=== PATIENT | male | born 1940 | race Caucasian/White ===

== ENCOUNTER 2021-01-30 10:57 | Inpatient (IN) | payer MEDICARE ==
[2021-01-30] MEDS ORDERED: SODIUM CHLORIDE 0.9% 500 ML 500 ML IV STA (11:28)
[2021-01-30] MEDS ORDERED: SODIUM CHLORIDE 0.9% 1,000 ML IV STA (11:28)
[2021-01-30] MEDS ORDERED: DILTIAZEM DRIP BOLUS FROM BAG 1 MG SOLN IV ONE (11:31)
--- NOTE | 2021-01-30 11:34 | ED ---
Dizziness HPI - General Chief Complaint: Dizziness Stated Complaint: syncope Time Seen by Provider: 01/30/21 11:20 Source: patient, family, RN notes reviewed Mode of arrival: ambulatory Limitations: no limitations - History of Present Illness Initial Comments: This is a 80-year-old male with a complaint today of dizziness and passing out times. He also complains of palpitations chest. No headache no loss of function is upper or lower extremities. No injury reported. He was noted this morning have increased dizziness and also elevated blood pressure per his . His heart rate was 134 at home. He does have a history of diabetes and some kidney problems he states. No other complaints or modifying factors at this time MD Complaint: dizziness, lightheadedness, near syncope - Related Data Home Medications Medication Instructions Recorded Confirmed Cholecalciferol [Vitamin D3 (25 25 mcg PO DAILY 01/30/21 01/30/21 Mcg = 1000 Iu)] Lisinopril [Zestril] 10 mg PO HS@1830 01/30/21 01/30/21 Pravastatin Sodium [Pravachol] 10 mg PO HS@1830 01/30/21 01/30/21 metFORMIN HCL [Glucophage] 500 mg PO DAILY 01/30/21 01/30/21 Allergies Allergy/AdvReac Type Severity Reaction Status Date / Time Penicillins Allergy Rash/Hives Verified 01/30/21 12:44 Review of Systems ROS Statement: Those systems with pertinent positive or pertinent negative responses have been documented in the HPI. ROS Other: All systems not noted in ROS Statement are negative. Past Medical History Past Medical History: No Reported History History of Any Multi-Drug Resistant Organisms: None Reported Past Surgical History: No Surgical Hx Reported Past Psychological History: No Psychological Hx Reported Smoking Status: Never smoker Past Alcohol Use History: None Reported Past Drug Use History: None Reported General Exam - General Exam Comments Initial Comments: Is a well-developed asthenic appearing male who is awake alert oriented 3 Limitations: no limitations General appearance: alert, anxious Head exam: Present: atraumatic, normocephalic, normal inspection Eye exam: Present: normal appearance, PERRL, EOMI. Absent: scleral icterus, c onjunctival injection, periorbital swelling ENT exam: Present: mucous membranes dry Neck exam: Present: normal inspection. Absent: tenderness, meningismus, lymphadenopathy Respiratory exam: Present: normal lung sounds bilaterally. Absent: respiratory distress, wheezes, rales, rhonchi, stridor Cardiovascular Exam: Present: tachycardia, irregular rhythm. Absent: systolic murmur, diastolic murmur, rubs, gallop, clicks GI/Abdominal exam: Present: soft, normal bowel sounds. Absent: distended, tenderness, guarding, rebound, rigid Extremities exam: Present: normal inspection, full ROM, normal capillary refill. Absent: tenderness, pedal edema, joint swelling, calf tenderness Back exam: Present: normal inspection Neurological exam: Present: alert, oriented X3, CN II-XII intact Psychiatric exam: Present: normal affect, normal mood Skin exam: Present: warm, dry, intact, normal color. 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 Clay. She'll be admitted with cardiology consultation the presentation is consistent with new onset A. fib RVR - Lab Data Result diagrams: 01/30/21 11:41 01/30/21 11:41 Lab Results 01/30/21 01/30/21 01/30/21 Range/Units 11:41 11:41 11:41 WBC 5.5 (3.8-10.6) k/uL RBC 4.70 (4.30-5.90) m/uL Hgb 14.9 (13.0-17.5) gm/dL Hct 42.8 (39.0-53.0) % MCV 90.9 (80.0-100.0) fL MCH 31.6 (25.0-35.0) pg MCHC 34.8 (31.0-37.0) g/dL RDW 12.3 (11.5-15.5) % Plt Count 310 (150-450) k/uL MPV 7.0 Neutrophils % 86 % Lymphocytes % 6 % Monocytes % 5 % Eosinophils % 2 % Basophils % 1 % Neutrophils # 4.7 (1.3-7.7) k/uL Lymphocytes # 0.3 L (1.0-4.8) k/uL Monocytes # 0.3 (0-1.0) k/uL Eosinophils # 0.1 (0-0.7) k/uL Basophils # 0.1 (0-0.2) k/uL Sodium 130 L (137-145) mmol/L Potassium 5.4 H (3.5-5.1) mmol/L Chloride 96 L (98-107) mmol/L Carbon Dioxide 28 (22-30) mmol/L Anion Gap 6 mmol/L BUN 10 (9-20) mg/dL Creatinine 1.23 (0.66-1.25) mg/dL Est GFR (CKD-EPI)AfAm 64 (>60 ml/min/1.73 sqM) Est GFR (CKD-EPI)NonAf 55 (>60 ml/min/1.73 sqM) Glucose 418 H (74-99) mg/dL Calcium 9.9 (8.4-10.2) mg/dL Magnesium 1.8 (1.6-2.3) mg/dL Total Bilirubin 0.7 (0.2-1.3) mg/dL AST 40 (17-59) U/L ALT 43 (4-49) U/L Alkaline Phosphatase 94 (38-126) U/L Troponin I (0.000-0.034) ng/mL Total Protein 6.8 (6.3-8.2) g/dL Albumin 3.8 (3.5-5.0) g/dL TSH 3.160 (0.465-4.680) mIU/L Urine Opiates Screen Not Detected (NotDetected) Ur Oxycodone Screen Not Detected (NotDetected) Urine Methadone Screen Not Detected (NotDetected) Ur Propoxyphene Screen Not Detected (NotDetected) Ur Barbiturates Screen Not Detected (NotDetected) U Tricyclic Antidepress Not Detected (NotDetected) Ur Phencyclidine Scrn Not Detected (NotDetected) Ur Amphetamines Screen Not Detected (NotDetected) U Methamphetamines Scrn Not Detected (NotDetected) U Benzodiazepines Scrn Not Detected (NotDetected) Urine Cocaine Screen Not Detected (NotDetected) U Marijuana (THC) Screen Not Detected (NotDetected) 01/30/21 Range/Units 11:41 WBC (3.8-10.6) k/uL RBC (4.30-5.90) m/uL Hgb (13.0-17.5) gm/dL Hct (39.0-53.0) % MCV (80.0-100.0) fL MCH (25.0-35.0) pg MCHC (31.0-37.0) g/dL RDW (11.5-15.5) % Plt Count (150-450) k/uL MPV Neutrophils % % Lymphocytes % % Monocytes % % Eosinophils % % Basophils % % Neutrophils # (1.3-7.7) k/uL Lymphocytes # (1.0-4.8) k/uL Monocytes # (0-1.0) k/uL Eosinophils # (0-0.7) k/uL Basophils # (0-0.2) k/uL Sodium (137-145) mmol/L Potassium (3.5-5.1) mmol/L Chloride (98-107) mmol/L Carbon Dioxide (22-30) mmol/L Anion Gap mmol/L BUN (9-20) mg/dL Creatinine (0.66-1.25) mg/dL Est GFR (CKD-EPI)AfAm (>60 ml/min/1.73 sqM) Est GFR (CKD-EPI)NonAf (>60 ml/min/1.73 sqM) Glucose (74-99) mg/dL Calcium (8.4-10.2) mg/dL Magnesium (1.6-2.3) mg/dL Total Bilirubin (0.2-1.3) mg/dL AST (17-59) U/L ALT (4-49) U/L Alkaline Phosphatase (38-126) U/L Troponin I <0.012 (0.000-0.034) ng/mL Total Protein (6.3-8.2) g/dL Albumin (3.5-5.0) g/dL TSH (0.465-4.680) mIU/L Urine Opiates Screen (NotDetected) Ur Oxycodone Screen (NotDetected) Urine Methadone Screen (NotDetected) Ur Propoxyphene Screen (NotDetected) Ur Barbiturates Screen (NotDetected) U Tricyclic Antidepress (NotDetected) Ur Phencyclidine Scrn (NotDetected) Ur Amphetamines Screen (NotDetected) U Methamphetamines Scrn (NotDetected) U Benzodiazepines Scrn (NotDetected) Urine Cocaine Screen (NotDetected) U Marijuana (THC) Screen (NotDetected) - Radiology Data Radiology results: report reviewed (Imaging reviewed no acute findings.), image reviewed Disposition Clinical Impression: Rapid atrial fibrillation, Dizziness, Dehydration Disposition: ADMITTED IP TO THIS [facility] Condition: Fair Referrals: Rebecca Zaragoza MD [Primary Care Provider] - 1-2 days
[2021-01-30] MEDS: DILTIAZEM 125 MG in SODIUM CHLORIDE 0.9% 100 ML IV SCH (11:48)
[2021-01-30 11:52] LABS: Basophils # (A) 0.1 k/uL (0-0.2); Basophils % (A) 1 %; Eosinophils # (A) 0.1 k/uL (0-0.7); Eosinophils % (A) 2 %; HCT 42.8 % (39.0-53.0); HGB 14.9 gm/dL (13.0-17.5); Lymphocytes # (A) 0.3 k/uL (1.0-4.8); Lymphocytes % (A) 6 %; MCH 31.6 pg (25.0-35.0); MCHC 34.8 g/dL (31.0-37.0); MCV 90.9 fL (80.0-100.0); Monocytes # (A) 0.3 k/uL (0-1.0); Monocytes % (A) 5 %; Neutrophils # (A) 4.7 k/uL (1.3-7.7); Neutrophils % (A) 86 %; Platelet Count 310 k/uL (150-450); RDW 12.3 % (11.5-15.5); WBC 5.5 k/uL (3.8-10.6)
[2021-01-30 12:05] LABS: Albumin 3.8 g/dL (3.5-5.0); Calcium 9.9 mg/dL (8.4-10.2); Magnesium 1.8 mg/dL (1.6-2.3); Potassium 5.4 mmol/L (3.5-5.1); Total Bilirubin 0.7 mg/dL (0.2-1.3); Total Protein 6.8 g/dL (6.3-8.2)
[2021-01-30 12:13] LABS: Amphetamine Screen,Urine Not Detected (NotDetected); Barbiturate Screen,Urine Not Detected (NotDetected); Benzodiazepines Screen,Urine Not Detected (NotDetected); Cocaine Screen,Urine Not Detected (NotDetected); Methadone Screen, Urine Not Detected (NotDetected); Opiate Screen,Urine Not Detected (NotDetected); Oxycodone Screen, Urine Not Detected (NotDetected); Phencyclidine Screen,Urine Not Detected (NotDetected); Tricyclic Antidepressant,Urine Not Detected (NotDetected); Urn Cannabinoid Scrn Not Detected (NotDetected)
--- NOTE | 2021-01-30 12:19 | XR ---
EXAMINATION TYPE: XR chest 2V DATE OF EXAM: 01/30/2021 COMPARISON: None INDICATION: Dizzy, heart palpitations TECHNIQUE: Frontal and lateral views of the chest are obtained. FINDINGS: The heart size is normal. The pulmonary vasculature is normal. Some platelike atelectasis at the left costophrenic angle. Lungs are otherwise clear.. IMPRESSION: 1. Minimal plate atelectasis left costophrenic angle
[2021-01-30] MEDS ORDERED: NALOXONE 0.4 MG/ML 1 ML VIAL IV PRN (13:04)
[2021-01-30] MEDS ORDERED: HEPARIN SODIUM,PORCINE 5,000 UNIT/ML 1 ML VIAL IV ONE (13:07)
[2021-01-30] MEDS ORDERED: HEPARIN SODIUM,PORCINE 5,000 UNIT/ML 1 ML VIAL IV PRN (13:07)
[2021-01-30] MEDS ORDERED: HEPARIN SOD,PORK IN 0.45% NACL 25,000 UNIT in 0.45% NACL 1 250ML.BAG IV SCH (13:15)
[2021-01-30 14:11] LABS: Basophils # (A) 0.1 k/uL (0-0.2); Basophils % (A) 1 %; Eosinophils # (A) 0.1 k/uL (0-0.7); Eosinophils % (A) 1 %; HCT 40.6 % (39.0-53.0); HGB 13.6 gm/dL (13.0-17.5); INR 1.1 (<1.2); Lymphocytes # (A) 0.4 k/uL (1.0-4.8); Lymphocytes % (A) 6 %; MCH 29.9 pg (25.0-35.0); MCHC 33.4 g/dL (31.0-37.0); MCV 89.5 fL (80.0-100.0); Mean Platelet Volume 7.1; Monocytes # (A) 0.4 k/uL (0-1.0); Monocytes % (A) 5 %; Neutrophils # (A) 6.8 k/uL (1.3-7.7); Neutrophils % (A) 87 %; Partial Thromboplastin Time 23.5 sec (22.0-30.0); Platelet Count 415 k/uL (150-450); Prothrombin Time 11.3 sec (9.0-12.0); RBC 4.53 m/uL (4.30-5.90); RDW 12.7 % (11.5-15.5); WBC 7.8 k/uL (3.8-10.6)
[2021-01-30 16:41] LABS: Glucose,Whole Blood 238 mg/dL (75-99)
[2021-01-30] MEDS: INSULIN ASPART (NovoLOG) 100 UNIT/ML VIAL SQ SCH ×2 (17:55→21:34)
[2021-01-30] MEDS: lisinopriL 10 MG TAB PO SCH (18:14)
[2021-01-30] MEDS: PRAVASTATIN SODIUM 20 MG TAB PO SCH (18:14)
[2021-01-30] MEDS: SODIUM CHLORIDE 0.9% 1,000 ML IV SCH ×2 (18:22→23:43)
[2021-01-30 20:41] LABS: Glucose,Whole Blood 210 mg/dL (75-99)
[2021-01-31 03:22] LABS: Basophils # (A) 0.1 k/uL (0-0.2); Basophils % (A) 1 %; Eosinophils # (A) 0.1 k/uL (0-0.7); Eosinophils % (A) 2 %; HCT 38.3 % (39.0-53.0); HGB 12.5 gm/dL (13.0-17.5); Lymphocytes # (A) 0.7 k/uL (1.0-4.8); Lymphocytes % (A) 11 %; MCH 29.7 pg (25.0-35.0); MCHC 32.7 g/dL (31.0-37.0); MCV 90.8 fL (80.0-100.0); Monocytes # (A) 0.3 k/uL (0-1.0); Monocytes % (A) 5 %; Neutrophils # (A) 4.8 k/uL (1.3-7.7); Neutrophils % (A) 79 %; Platelet Count 381 k/uL (150-450); RBC 4.22 m/uL (4.30-5.90); RDW 12.9 % (11.5-15.5); WBC 6.1 k/uL (3.8-10.6)
[2021-01-31 05:55] LABS: Glucose,Whole Blood 176 mg/dL (75-99)
[2021-01-31] MEDS: INSULIN ASPART (NovoLOG) 100 UNIT/ML VIAL SQ SCH ×4 (06:38→20:31)
[2021-01-31] MEDS: DILTIAZEM 125 MG in SODIUM CHLORIDE 0.9% 100 ML IV SCH (06:39)
[2021-01-31] MEDS: SODIUM CHLORIDE 0.9% 1,000 ML IV SCH ×2 (07:50→17:06)
[2021-01-31] MEDS: metFORMIN 500 MG TAB PO SCH (07:50)
[2021-01-31] MEDS: CHOLECALCIFEROL 25 MCG (1000 IU) TABLET PO SCH (07:50)
[2021-01-31] MEDS: METOPROLOL TARTRATE 25 MG TAB PO SCH ×2 (08:43→20:31)
[2021-01-31 10:22] LABS: Albumin 3.9 g/dL (3.5-5.0); Calcium 9.3 mg/dL (8.4-10.2); Potassium 4.4 mmol/L (3.5-5.1); Total Bilirubin 0.7 mg/dL (0.2-1.3); Total Protein 6.9 g/dL (6.3-8.2)
[2021-01-31 11:08] LABS: Cholesterol 157 mg/dL (<200); HDL Cholesterol 66 mg/dL (40-60); LDL Cholesterol,Calculated 73 mg/dL (0-99); Triglycerides 89 mg/dL (<150)
[2021-01-31 12:21] LABS: Glucose,Whole Blood 209 mg/dL (75-99)
[2021-01-31] MEDS: COLCHICINE 0.6 MG EACH PO SCH ×2 (12:32→20:31)
--- NOTE | 2021-01-31 12:34 | ECHOF ---
Referral Reason:syncope MEASUREMENTS -------- HEIGHT: 175.3 cm WEIGHT: 73.5 kg BP: 114/69 RVIDd: 3.4 cm (< 3.3) IVSd: 1.3 cm (0.6 - 1.1) LVIDd: 3.8 cm (3.9 - 5.3) LVPWd: 1.2 cm (0.6 - 1.1) IVSs: 1.6 cm LVIDs: 2.7 cm LVPWs: 1.6 cm LA Diam: 3.6 cm (2.7 - 3.8) LAESV Index (A-L): 22.65 ml/m Ao Diam: 3.6 cm (2.0 - 3.7) AV Cusp: 1.8 cm (1.5 - 2.6) MV E Jatin: 1.00 m/s MV DecT: 153 ms MV A Jatin: 0.66 m/s MV E/A Ratio: 1.51 AR PHT: 879 ms RAP: 15.00 mmHg RVSP: 43.34 mmHg FINDINGS -------- This was a technically good study. The left ventricular size is normal. There is mild concentric left ventricular hypertrophy. Overa ll left ventricular systolic function is normal with, an EF between 60 - 65 %. The right ventricle is mildly enlarged. Normal LA size by volume 22+/-6 ml/m2. The right atrium is normal in size. Interatrial and interventricular septum intact. There is mild aortic valve sclerosis. There is mild aortic regurgitation. The mitral valve leaflets are mildly thickened. Mild mitral regurgitation is present. Mild tricuspid regurgitation present. There is mild pulmonary hypertension. The right ventricular systolic pressure, as measured by Doppler, is 43.34mmHg. Trace/mild (physiologic) pulmonic regurgitation. The aortic root size is normal. Normal inferior vena cava with less than 50% inspiratory collapse consistent with estimated right atr ial pressure of 15 mmHg. There is a small, generalized pericardial effusion present. CONCLUSIONS -------- 1. The left ventricular size is normal. 2. There is mild concentric left ventricular hypertrophy. 3. Overall left ventricular systolic function is normal with, an EF between 60 - 65 %. 4. The right ventricle is mildly enlarged. 5. Normal LA size by volume 22+/-6 ml/m2. 6. There is mild aortic valve sclerosis. 7. There is mild aortic regurgitation. 8. The mitral valve leaflets are mildly thickened. 9. Mild mitral regurgitation is present. 10. Mild tricuspid regurgitation present. 11. There is mild pulmonary hypertension. 12. The right ventricular systolic pressure, as measured by Doppler, is 43.34mmHg. 13. Trace/mild (physiologic) pulmonic regurgitation. 14. Normal inferior vena cava with less than 50% inspiratory collapse consistent with estimated right atrial pressure of 15 mmHg. 15. There is a small, generalized pericardial effusion present. ORDERLY: Gudelia Jaquez RDCS
--- NOTE | 2021-01-31 12:41 | P.CRDCN ---
History of Present Illness Chief complaint: near syncope History of present illness: HISTORY OF PRESENTING ILLNESS This is a pleasant 80-year-old male past medical history significant for hypertension, diabetes mellitus and dyslipidemia. 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 We have been asked to see in consultation for afib. Approximately 3 weeks ago he woke up from sleep with nausea, abominal pain and bloating. For about 3 days he continued to have these symptoms and also had vomiting and poor appetite. He had no chest pain or shortness of breath during this episode. Then Sunday of last week he felt acutely light headed like he was going to pass out. He felt his heart racing and had to lower himself into a chair. No LOC. After resting he felt well the rest of the day. Then Sunday the same thing happened again with feeling light headed and fluttering in his chest. He did not pass out or fall. On arrival his EKG was atrial tachycardia with rapid heart beat. Review of EKG's and telemetry indicate he is having runs of atrial tachycardia, no afib. He is seen and examined resting comfortably laying flat in bed. DIAGNOSTICS EKG reveals sinus mechanism with bursts of atrial tachycardia. Telemetry tracings indicate sinus rhythm with bursts of atrial tachycardia. Chest xray with minimal atelectasis at the left costrophrenic angle. Laboratory reviewed, WBC 6.1, hgb 12.5, plt 381, sodium 134, potassium 4.4, creatinine 1.09, cardiac enzymes negative x3, magnesium 1.8, TSH 3.16 and LDL 73. Current cardiac medications include lisinopril 10 mg daily and pravastatin 10 mg daily. REVIEW OF SYSTEMS At the time of my exam: CONSTITUTIONAL: Denies fever or chills. CARDIOVASCULAR: Denies chest pain, shortness of breath, orthopnea, PND or palpitations. RESPIRATORY: Denies cough. GASTROINTESTINAL: Denies abdominal pain, diarrhea, constipation, nausea or vomiting. MUSCULOSKELETAL: Denies myalgias. NEUROLOGIC: Denies numbness, tingling, headacbe or weakness. ENDOCRINE: Denies fatigue, weight change, polydipsia or polyurina. GENITOURINARY: Denies burning, hematuria or urgency with micturation. HEMATOLOGIC: Denies history of anemia or bleeding. PHYSICAL EXAMINATION Blood pressure 114/69 heart rate 114 afebrile and maintaining oxygen saturation on room air. CONSTITUTIONAL: No apparent distress. HEENT: Head is normocephalic. Pupils are equal, round. Sclerae anicteric. Mucous membranes of the mouth are moist. No JVD. No carotid bruit. CHEST EXAMINATION: Lungs are clear to auscultation. No chest wall tenderness is noted on palpation or with deep breathing. HEART EXAMINATION: Regular rate and rhythm. S1, S2 heard. No murmurs, gallops or rub. ABDOMEN: Soft, nontender. Positive bowel sounds. EXTREMITIES: 2+ peripheral pulses, no lower extremity edema and no calf tenderness. NEUROLOGIC EXAMINATION: Patient is awake, alert and oriented x3. ASSESSMENT Atrial tachycardia Pericardial effusion, suspect secondary to viral illness with GI symptoms 3 weeks ago. Hyperkalemia Hypertension Dyslipidemia Diabetes mellitus PLAN Discontinue heparin and cardizem infusion. No halfway anti-coagulation required at this time as he is having atrial tachycardia, not afib. Add lopressor 25 mg BID and adjust lisinopril as needed to tolerate the beta sherine. Obtain 2D echocardiogram and doppler study to assess cardiac structure and function. (Preliminary review of echo reveals a pericardial effusion.) Check viral titers, CRP and ESR. Add colchicine 0.6 mg BID. Further recommendations to follow based on clinical course. Thank you kindly for this consultation. Nurse Practitioner note has been reviewed, I agree with a documented findings and plan of care. Patient was seen and examined. Past Medical History Past Medical History: Diabetes Mellitus History of Any Multi-Drug Resistant Organisms: None Reported Past Surgical History: Hernia Repair Additional Past Surgical History / Comment(s): BILATERAL CATARACTS REMOVED SEP 2020 Past Anesthesia/Blood Transfusion Reactions: No Reported Reaction Past Psychological History: No Psychological Hx Reported Smoking Status: Former smoker Past Alcohol Use History: Rare Past Drug Use History: None Reported - Past Family History Son(s) Family Medical History: Cancer Medications and Allergies Home Medications Medication Instructions Recorded Confirmed Type Cholecalciferol [Vitamin D3 (25 25 mcg PO DAILY 01/30/21 01/30/21 History Mcg = 1000 Iu)] Lisinopril [Zestril] 10 mg PO HS@1830 01/30/21 01/30/21 History Pravastatin Sodium [Pravachol] 10 mg PO HS@18301/30/21 01/30/21 History metFORMIN HCL [Glucophage] 500 mg PO DAILY 01/30/21 01/30/21 History Allergies Allergy/AdvReac Type Severity Reaction Status Date / Time Penicillins Allergy Rash/Hives Verified 01/30/21 12:44 Physical Exam Vitals: Vital Signs Temp Pulse Pulse Resp BP BP Pulse Ox 01/31/21 07:54 114 H 01/31/21 07:47 98.1 F 114 H 18 114/69 99 01/31/21 03:59 97.8 F 70 19 102/55 99 01/31/21 02:00 72 19 01/31/21 00:00 97.7 F 72 19 100/57 99 01/30/21 20:00 98.1 F 101 H 18 100/61 97 01/30/21 17:05 97.5 F L 83 20 152/91 100 01/30/21 15:00 86 16 103/69 100 01/30/21 14:30 79 16 124/77 100 01/30/21 14:00 83 18 110/80 100 01/30/21 13:30 85 16 113/66 100 01/30/21 13:00 91 18 116/66 99 01/30/21 12:30 121 H 18 116/69 98 01/30/21 12:00 93 136/83 97 01/30/21 11:44 136 H 01/30/21 11:30 143/95 100 01/30/21 11:06 97.4 F L 169 H 18 155/108 98 Intake and Output 01/30/21 01/31/21 01/31/21 22:59 06:59 14:59 Intake Total 288.348 382.023 Output Total 250 200 200 Balance 38.348 182.023 -200 Intake: Intake, IV Titration 48.348 142.023 Amount Diltiazem 125 mg In 94.25 Sodium Chloride 0.9% 100 ml @ 5 MG/HR 5 mls/hr IV .Q24H GIULIA Rx#:[id number] Heparin Sod,Pork in 0.45% 48.348 47.773 NaCl 25,000 unit In 0.45 % NaCl 1 250ml.bag @ 12 UNITS/KG/HR 8.981 mls/hr IV .Q24H GIULIA Rx#: [id number] Oral 240 240 Output: Urine 250 200 200 Other: # Voids 1 Weight 74.843 kg 73.5 kg Results 01/31/21 02:40 01/31/21 09:33 Cardiac Enzymes 01/30/21 01/30/21 01/30/21 Range/Units 11:41 11:41 15:14 AST 40 (17-59) U/L Troponin I <0.012 <0.012 (0.000-0.034) ng/mL 01/30/21 01/31/21 Range/Units 19:13 09:33 AST 44 (17-59) U/L Troponin I <0.012 (0.000-0.034) ng/mL Coagulation 01/30/21 01/30/21 01/31/21 Range/Units 13:49 19:13 02:40 PT 11.3 (9.0-12.0) sec APTT 23.5 65.8 H 35.5 H (22.0-30.0) sec 01/31/21 Range/Units 09:33 PT (9.0-12.0) sec APTT 38.1 H (22.0-30.0) sec CBC 01/30/21 01/30/21 01/31/21 Range/Units 11:41 13:49 02:40 WBC 5.5 7.8 6.1 (3.8-10.6) k/uL RBC 4.70 4.53 4.22 L (4.30-5.90) m/uL Hgb 14.9 13.6 12.5 L (13.0-17.5) gm/dL Hct 42.8 40.6 38.3 L (39.0-53.0) % Plt Count 310 415 381 (150-450) k/uL Comprehensive Metabolic Panel 01/30/21 01/31/21 Range/Units 11:41 09:33 Sodium 130 L 134 L (137-145) mmol/L Potassium 5.4 H 4.4 (3.5-5.1) mmol/L Chloride 96 L 100 (98-107) mmol/L Carbon Dioxide 28 28 (22-30) mmol/L BUN 10 11 (9-20) mg/dL Creatinine 1.23 1.09 (0.66-1.25) mg/dL Glucose 418 H 239 H (74-99) mg/dL Calcium 9.9 9.3 (8.4-10.2) mg/dL AST 40 44 (17-59) U/L ALT 43 44 (4-49) U/L Alkaline Phosphatase 94 88 (38-126) U/L Total Protein 6.8 6.9 (6.3-8.2) g/dL Albumin 3.8 3.9 (3.5-5.0) g/dL Current Medications Generic Name Dose Route Start Last Admin Trade Name Balaq PRN Reason Stop Dose Admin Cholecalciferol 25 mcg 01/31/21 09:00 01/31/21 07:50 Cholecalciferol 25 Mcg (1000 Iu) Tablet PO 25 mcg DAILY GIULIA Administration Heparin Sodium (Porcine) 0 unit 01/30/21 13:07 Heparin Sodium,Porcine 5,000 Unit/Ml 1 Ml Vial IV PER PROTOCOL PRN Low PTT Protocol Diltiazem HCl 125 mg/ Sodium 125 mls @ 5 mls/hr 01/30/21 11:45 01/31/21 06:39 Chloride IV 5 mg/hr .Q24H GIULIA 5 mls/hr Administration 5 MG/HR Sodium Chloride 1,000 mls @ 100 mls/hr 01/30/21 13:15 01/31/21 07:50 Saline 0.9% IV Not Given .Q10H GIULIA Insulin Aspart 0 unit 01/30/21 21:00 01/31/21 06:38 Insulin Aspart (Novolog) 100 Unit/Ml Vial SQ 2 unit ACHS GIULIA Administration Protocol Lisinopril 10 mg 01/30/21 18:30 01/30/21 18:14 Lisinopril 10 Mg Tab PO 10 mg HS@1830 GIULIA Administration Metformin HCl 500 mg 01/31/21 09:00 01/31/21 07:50 Metformin 500 Mg Tab PO 500 mg DAILY GUILIA Administration Metoprolol Tartrate 25 mg 01/31/21 09:00 01/31/21 08:43 Metoprolol Tartrate 25 Mg Tab PO 25 mg BID GIULIA Administration Naloxone HCl 0.2 mg 01/30/21 13:04 Naloxone 0.4 Mg/Ml 1 Ml Vial IV Q2M PRN Opioid Reversal Pravastatin Sodium 10 mg 01/30/21 18:30 01/30/21 18:14 Pravastatin Sodium 20 Mg Tab PO 10 mg HS@1830 GIULIA Administration Intake and Output 01/30/21 01/31/21 01/31/21 22:59 06:59 14:59 Intake Total 288.348 382.023 Output Total 250 200 200 Balance 38.348 182.023 -200 Intake: Intake, IV Titration 48.348 142.023 Amount Diltiazem 125 mg In 94.25 Sodium Chloride 0.9% 100 ml @ 5 MG/HR 5 mls/hr IV .Q24H GIULIA Rx#:[id number] Heparin Sod,Pork in 0.45% 48.348 47.773 NaCl 25,000 unit In 0.45 % NaCl 1 250ml.bag @ 12 UNITS/KG/HR 8.981 mls/hr IV .Q24H GIULIA Rx#: [id number] Oral 240 240 Output: Urine 250 200 200 Other: # Voids 1 Weight 74.843 kg 73.5 kg 01/31/21 02:40 01/31/21 09:33
[2021-01-31 14:08] LABS: Hemoglobin A1C 8.5 % (4.0-6.0)
[2021-01-31 17:02] LABS: Glucose,Whole Blood 157 mg/dL (75-99)
[2021-01-31] MEDS: PRAVASTATIN SODIUM 20 MG TAB PO SCH (17:07)
[2021-01-31] MEDS: lisinopriL 10 MG TAB PO SCH (17:07)
--- NOTE | 2021-01-31 17:44 | P.HPIM ---
History of Present Illness H&P Date: 01/31/21 Kalen Birmingham, is an 80-year-old male who presented to [facility] emergency room with a chief complaint of dizziness lightheadedness and presyncope patient was also complaining of palpitation, he was evaluated in the emergency room, vital examination on presentation revealed a temperature of 97.4 pulse 169 respiration 18 blood pressure 155/108 pulse ox 98% on room air, his white blood count was 7.8 hemoglobin 13.6 platelet count 415 sodium 130 potassium 5.4 chloride 96 glucose level was 418 troponin level was less than 0.012 BUN 10 creatinine 1.23 AST and ALT were normal urine toxicology screen was negative, coronavirus PCR was negative, patient had a chest x-ray in the [facility] room that revealed minimal plate atelectasis in the left costophrenic angle otherwise no abnormality, EKG done in the emergency room revealed sinus tachycardia was first-degree AV block with a heart rate of 134, however it was felt in the emergency room that patient had atrial fibrillation with rapid ventricular response, he was started on IV Cardizem drip and IV heparin and was admitted to telemetry floor cardiology consultation was requested. Past medical history is significant for history of hypertension, history of hyperlipidemia, history of xag-dydybqu-aoaosxuyj diabetes mellitus millimeters, On review of systems Past Medical History Past Medical History: Diabetes Mellitus History of Any Multi-Drug Resistant Organisms: None Reported Past Surgical History: Hernia Repair Additional Past Surgical History / Comment(s): BILATERAL CATARACTS REMOVED SEP 2020 Past Anesthesia/Blood Transfusion Reactions: No Reported Reaction Past Psychological History: No Psychological Hx Reported Smoking Status: Former smoker Past Alcohol Use History: Rare Past Drug Use History: None Reported - Past Family History Son(s) Family Medical History: Cancer Medications and Allergies Home Medications Medication Instructions Recorded Confirmed Type Cholecalciferol [Vitamin D3 (25 25 mcg PO DAILY 01/30/21 01/30/21 History Mcg = 1000 Iu)] Lisinopril [Zestril] 10 mg PO HS@182901/30/21 01/30/21 History Pravastatin Sodium [Pravachol] 10 mg PO HS@182901/30/21 01/30/21 History metFORMIN HCL [Glucophage] 500 mg PO DAILY 01/30/21 01/30/21 History Allergies Allergy/AdvReac Type Severity Reaction Status Date / Time Penicillins Allergy Rash/Hives Verified 01/30/21 12:44 Physical Exam Vitals: Vital Signs Temp Pulse Pulse Resp BP BP Pulse Ox 01/31/21 07:54 114 H 01/31/21 07:47 98.1 F 114 H 18 114/69 99 01/31/21 03:59 97.8 F 70 19 102/55 99 01/31/21 02:00 72 19 01/31/21 00:00 97.7 F 72 19 100/57 99 01/30/21 20:00 98.1 F 101 H 18 100/61 97 01/30/21 17:05 97.5 F L 83 20 152/91 100 01/30/21 15:00 86 16 103/69 100 01/30/21 14:30 79 16 124/77 100 01/30/21 14:00 83 18 110/80 100 01/30/21 13:30 85 16 113/66 100 01/30/21 13:00 91 18 116/66 99 01/30/21 12:30 121 H 18 116/69 98 01/30/21 12:00 93 136/83 97 01/30/21 11:44 136 H 01/30/21 11:30 143/95 100 01/30/21 11:06 97.4 F L 169 H 18 155/108 98 Intake and Output 01/30/21 01/31/21 01/31/21 22:59 06:59 14:59 Intake Total 288.348 382.023 Output Total 250 200 200 Balance 38.348 182.023 -200 Intake: Intake, IV Titration 48.348 142.023 Amount Diltiazem 125 mg In 94.25 Sodium Chloride 0.9% 100 ml @ 5 MG/HR 5 mls/hr IV .Q24H GIULIA Rx#:[id number] Heparin Sod,Pork in 0.45% 48.348 47.773 NaCl 25,000 unit In 0.45 % NaCl 1 250ml.bag @ 12 UNITS/KG/HR 8.981 mls/hr IV .Q24H GIULIA Rx#: [id number] Oral 240 240 Output: Urine 250 200 200 Other: # Voids 1 Weight 74.843 kg 73.5 kg In general patient is alert and oriented 3 in no apparent distress HEENT head normocephalic and atraumatic Neck is supple no JVD no goiter no lymphadenopathy Chest exam reveals a few scattered rhonchi no wheezing Cardiac exam reveals regular heart sounds S1 and S2 no gallops no murmurs Abdomen is soft nontender no organomegaly with normal bowel sounds Extremity exam reveals 2+ edema no cyanosis or clubbing Neurological examination reveals no gross focal deficit Results CBC & Chem 7: 01/31/21 02:40 01/31/21 09:33 Labs: Abnormal Lab Results - Last 24 Hours (Table) 01/30/21 01/30/21 01/30/21 Range/Units 11:41 11:41 13:49 RBC (4.30-5.90) m/uL Hgb (13.0-17.5) gm/dL Hct (39.0-53.0) % Lymphocytes # 0.3 L 0.4 L (1.0-4.8) k/uL APTT (22.0-30.0) sec Sodium 130 L (137-145) mmol/L Potassium 5.4 H (3.5-5.1) mmol/L Chloride 96 L (98-107) mmol/L Glucose 418 H (74-99) mg/dL POC Glucose (mg/dL) (75-99) mg/dL 01/30/21 01/30/21 01/30/21 Range/Units 16:40 19:13 20:30 RBC (4.30-5.90) m/uL Hgb (13.0-17.5) gm/dL Hct (39.0-53.0) % Lymphocytes # (1.0-4.8) k/uL APTT 65.8 H (22.0-30.0) sec Sodium (137-145) mmol/L Potassium (3.5-5.1) mmol/L Chloride (98-107) mmol/L Glucose (74-99) mg/dL POC Glucose (mg/dL) 238 H 210 H (75-99) mg/dL 01/31/21 01/31/21 01/31/21 Range/Units 02:40 02:40 05:49 RBC 4.22 L (4.30-5.90) m/uL Hgb 12.5 L (13.0-17.5) gm/dL Hct 38.3 L (39.0-53.0) % Lymphocytes # 0.7 L (1.0-4.8) k/uL APTT 35.5 H (22.0-30.0) sec Sodium (137-145) mmol/L Potassium (3.5-5.1) mmol/L Chloride (98-107) mmol/L Glucose (74-99) mg/dL POC Glucose (mg/dL) 176 H (75-99) mg/dL Thrombosis Risk Factor Assmnt - Choose All That Apply Each Risk Factor Represents 3 Points: Age 75 years or older Thrombosis Risk Factor Assessment Total Risk Factor Score: 3 Thrombosis Risk Factor Assessment Level: Moderate Risk Assessment and Plan Plan: Severe tachycardia initially patient was diagnosed in the emergency room with atrial fibrillation with rapid ventricular response patient is admitted to telemetry floor he was started on IV Cardizem, IV heparin, cardiology consultation was requested, however upon evaluation by cardiology, patient is having atrial tachycardia and IV heparin was discontinued there was no need for term anticoagulation, metoprolol 25 mg by mouth twice a day was added Underlying history of hypertension will monitor blood pressure control and adjust medication during this admission Underlying history of hyperlipidemia Underlying history of ikk-sxdmykf-sqbtloefl diabetes mellitus No evidence of hypothyroidism TSH normal at 3.16 on presentation Hyperkalemia potassium 5.4 Will monitor closely Home medication reviewed and reordered Cardiology consultation and recommendation reviewed Continue with current management will follow in a.m.
[2021-01-31 20:12] LABS: Glucose,Whole Blood 288 mg/dL (75-99)
[2021-02-01 06:03] LABS: Glucose,Whole Blood 125 mg/dL (75-99)
[2021-02-01] MEDS: SODIUM CHLORIDE 0.9% 1,000 ML IV SCH (06:29)
[2021-02-01] MEDS: INSULIN ASPART (NovoLOG) 100 UNIT/ML VIAL SQ SCH ×2 (06:30→12:09)
[2021-02-01 07:50] LABS: Albumin 3.8 g/dL (3.5-5.0); Calcium 9.7 mg/dL (8.4-10.2); Potassium 4.3 mmol/L (3.5-5.1); Total Bilirubin 0.7 mg/dL (0.2-1.3)
[2021-02-01 08:01] LABS: Basophils # (A) 0.1 k/uL (0-0.2); Basophils % (A) 1 %; Eosinophils # (A) 0.1 k/uL (0-0.7); Eosinophils % (A) 1 %; HCT 42.5 % (39.0-53.0); HGB 13.9 gm/dL (13.0-17.5); Lymphocytes # (A) 0.9 k/uL (1.0-4.8); Lymphocytes % (A) 14 %; MCH 29.5 pg (25.0-35.0); MCHC 32.6 g/dL (31.0-37.0); MCV 90.5 fL (80.0-100.0); Mean Platelet Volume 7.4; Monocytes # (A) 0.4 k/uL (0-1.0); Monocytes % (A) 6 %; Neutrophils # (A) 4.9 k/uL (1.3-7.7); Neutrophils % (A) 77 %; Platelet Count 365 k/uL (150-450); RDW 12.9 % (11.5-15.5); WBC 6.3 k/uL (3.8-10.6)
[2021-02-01] MEDS: CHOLECALCIFEROL 25 MCG (1000 IU) TABLET PO SCH (08:38)
[2021-02-01] MEDS: COLCHICINE 0.6 MG EACH PO SCH (08:38)
[2021-02-01] MEDS: metFORMIN 500 MG TAB PO SCH (08:39)
[2021-02-01] MEDS: METOPROLOL TARTRATE 25 MG TAB PO SCH (08:39)
[2021-02-01 11:53] LABS: Glucose,Whole Blood 172 mg/dL (75-99)
[2021-02-01 12:23] VITALS: BP 130/71; PULSE 80; RESP 18; TEMP 98.3
--- NOTE | 2021-02-01 12:32 | P.PN ---
Subjective HISTORY OF PRESENTING ILLNESS This is a pleasant 80-year-old male past medical history significant for hypertension, diabetes mellitus and dyslipidemia. 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 We have been asked to see in consultation for afib. Approximately 3 weeks ago he woke up from sleep with nausea, abominal pain and bloating. For about 3 days he continued to have these symptoms and also had vomiting and poor appetite. He had no chest pain or shortness of breath during this episode. Then Sunday of last week he felt acutely light headed like he was going to pass out. He felt his heart racing and had to lower himself into a chair. No LOC. After resting he felt well the rest of the day. Then Sunday the same thing happened again with feeling light headed and fluttering in his chest. He did not pass out or fall. On arrival his EKG was atrial tachycardia with rapid heart beat. Review of EKG's and telemetry indicate he is having runs of atrial tachycardia, no afib. He is seen and examined resting comfortably laying flat in bed. 02/01/2021 Should seen and examined resting comfortably laying flat in bed in no acute distress. Telemetry tracings indicate persistent sinus mechanism with no further episodes of atrial tachycardia. Blood pressure 130/71 heart rate 88 afebrile maintaining oxygen saturation on room air. Laboratory data reviewed, WBC 6.3, hemoglobin 13.9, platelets 365, ESR 20, sodium 133, potassium 4.3, creatinine 1.10, C-reactive protein less than 5. PHYSICAL EXAMINATION CONSTITUTIONAL: No apparent distress. HEENT: Head is normocephalic. Pupils are equal, round. Sclerae anicteric. Mucous membranes of the mouth are moist. No JVD. No carotid bruit. CHEST EXAMINATION: Lungs are clear to auscultation. No chest wall tenderness is noted on palpation or with deep breathing. HEART EXAMINATION: Regular rate and rhythm. S1, S2 heard. No murmurs, gallops or rub. EXTREMITIES: 2+ peripheral pulses, no lower extremity edema and no calf te nderness. ASSESSMENT Atrial tachycardia Pericardial effusion, suspect secondary to viral illness with GI symptoms 3 weeks ago. Hyperkalemia Hypertension Dyslipidemia Diabetes mellitus PLAN Stable for discharge on current medical regimen. Recommend colchicine for 4 weeks. Follow-up in the office with Dr. Johnson. Nurse Practitioner note has been reviewed, I agree with a documented findings and plan of care. Patient was seen and examined. Objective - Vital Signs Vital signs: Vital Signs Temp 98.3 F 02/01/21 11:02 Pulse 80 02/01/21 11:02 Resp 18 02/01/21 11:02 BP 130/71 02/01/21 11:02 Pulse Ox 96 02/01/21 11:02 Intake & Output 01/31/21 02/01/21 02/01/21 18:59 06:59 18:59 Intake Total 420 300 240 Output Total 700 800 Balance -280 -500 240 Weight 73.6 kg Intake: Oral 420 300 240 Output: Urine 700 800 Other: # Voids 2 - Labs CBC & Chem 7: 02/01/21 06:55 02/01/21 06:55 Labs: Abnormal Lab Results - Last 24 Hours (Table) 01/31/21 01/31/21 01/31/21 Range/Units 02:40 17:00 20:11 Lymphocytes # (1.0-4.8) k/uL ESR (0-15) mm/hr Sodium (137-145) mmol/L Glucose (74-99) mg/dL POC Glucose (mg/dL) 157 H 288 H (75-99) mg/dL Hemoglobin A1c 8.5 H (4.0-6.0) % 02/01/21 02/01/21 02/01/21 Range/Units 06:02 06:55 06:55 Lymphocytes # 0.9 L (1.0-4.8) k/uL ESR (0-15) mm/hr Sodium 133 L (137-145) mmol/L Glucose 152 H (74-99) mg/dL POC Glucose (mg/dL) 125 H (75-99) mg/dL Hemoglobin A1c (4.0-6.0) % 02/01/21 02/01/21 Range/Units 06:55 11:52 Lymphocytes # (1.0-4.8) k/uL ESR 20 H (0-15) mm/hr Sodium (137-145) mmol/L Glucose (74-99) mg/dL POC Glucose (mg/dL) 172 H (75-99) mg/dL Hemoglobin A1c (4.0-6.0) %
--- NOTE | 2021-02-01 12:39 | P.DS ---
Providers Date of admission: 01/30/21 13:04 Expected date of discharge: 02/01/21 Attending physician: Joseluis Clay Consults: 01/30/21 13:05 Consult Physician Routine Consulting Provider: Winston Alonso Consult Reason/Comments: New-onset rapid A. fib Do you want consulting provider notified?: Yes Primary care physician: Rebecca Zaragoza Va Hospital Course: Discharge diagnosis Severe tachycardia initially patient was diagnosed in the emergency room with atrial fibrillation with rapid ventricular response patient is admitted to telemetry floor he was started on IV Cardizem, IV heparin, cardiology consultation was requested, however upon evaluation by cardiology, patient is having atrial tachycardia and IV heparin was discontinued there was no need for term anticoagulation, metoprolol 25 mg by mouth twice a day was added Underlying history of hypertension will monitor blood pressure control and adjust medication during this admission Underlying history of hyperlipidemia Underlying history of qlj-malwikv-ttozqpkvd diabetes mellitus No evidence of hypothyroidism TSH normal at 3.16 on presentation Hyperkalemia potassium 5.4 Will monitor closely. Resolved Pericardial effusion seen on 2-D echo per neurology services suspect secondary to viral illness. Patient started on colchicine for 4 weeks and patient will follow up with cardiology services Hospital course Kalen Birmingham, is an 80-year-old male who presented to [facility] emergency room with a chief complaint of dizziness lightheadedness and presyncope patient was also complaining of palpitation, he was evaluated in the emergency room, vital examination on presentation revealed a temperature of 97.4 pulse 169 respiration 18 blood pressure 155/108 pulse ox 98% on room air, his white blood count was 7.8 hemoglobin 13.6 platelet count 415 sodium 130 potassium 5.4 chloride 96 glucose level was 418 troponin level was less than 0.0 12 BUN 10 creatinine 1.23 AST and ALT were normal urine toxicology screen was negative, coronavirus PCR was negative, patient had a chest x-ray in the emergency room that revealed minimal plate atelectasis in the left costophrenic angle otherwise no abnormality, EKG done in the emergency room revealed sinus tachycardia was first-degree AV block with a heart rate of 134, however it was felt in the emergency room that patient had atrial fibrillation with rapid ventricular response, he was started on IV Cardizem drip and IV heparin and was admitted to telemetry floor cardiology consultation was requested. Past medical history is significant for history of hypertension, history of hyperlipidemia, history of kkc-dyhalwv-qzsrejqvd diabetes mellitus millimeters, On review of systems On 02/01/2021 patient alert and oriented 3. Patient states he feels good denies any chest pain or shortness of breath. Patient denies nausea vomiting or diarrhea. Patient denies any urinary burning or frequency. Heart rate has remained sinus rhythm. Discussed case with cardiology team pericardial effusion seen on 2-D echo suspect secondary to viral illness. Patient started on cochicine and advised to follow up with cardiology services in 4 weeks. Patient has been started on Metroprolol 25 mg twice a day. patient follow-up closely with PCP and cardial G services for further management Patient Condition at Discharge: Stable Plan - Discharge Summary Discharge Rx Participant: No New Discharge Prescriptions: New Metoprolol Tartrate [Lopressor] 25 mg PO BID #180 tab Colchicine [Colcrys] 0.6 mg PO BID #60 each Pioglitazone [Actos] 30 mg PO DAILY 30 Days #30 tab Continue metFORMIN HCL [Glucophage] 500 mg PO DAILY Cholecalciferol [Vitamin D3 (25 Mcg = 1000 Iu)] 25 mcg PO DAILY Pravastatin Sodium [Pravachol] 10 mg PO HS@1830 Lisinopril [Zestril] 10 mg PO HS@1830 Discharge Medication List Cholecalciferol [Vitamin D3 (25 Mcg = 1000 Iu)] 25 mcg PO DAILY 01/30/21 [History] Lisinopril [Zestril] 10 mg PO HS@1830 01/30/21 [History] Pravastatin Sodium [Pravachol] 10 mg PO HS@1830 01/30/21 [History] metFORMIN HCL [Glucophage] 500 mg PO DAILY 01/30/21 [History] Colchicine [Colcrys] 0.6 mg PO BID #60 each 02/01/21 [Rx] Metoprolol Tartrate [Lopressor] 25 mg PO BID #180 tab 02/01/21 [Rx] Pioglitazone [Actos] 30 mg PO DAILY 30 Days #30 tab 02/01/21 [Rx] Follow up Appointment(s)/Referral(s): Arden Johnson MD [STAFF PHYSICIAN] - 4 Weeks Rebecca Zaragoza MD [Primary Care Provider] - 1-2 days Activity/Diet/Wound Care/Special Instructions: Glucometer and supplies are in [facility] pharmacy Discharge Disposition: HOME SELF-CARE
[2021-02-03 13:19] LABS: Parvovirus B-19 IgM Antibodies 0.24 INDEX (<=0.90)
== END 2021-02-01 14:35 | disposition home or self-care (01) | DRG 309 ==
LOC: EC 10:57 → 3SCARD 13:04
PROVIDERS: ADMIT Internal Medicine; ATTEND Internal Medicine
DX: I47.1 Supraventricular tachycardia (principal); I31.3 Pericardial effusion (noninflammatory); I10 Essential (primary) hypertension; E78.5 Hyperlipidemia, unspecified; E11.9 Type 2 diabetes mellitus without complications; E86.0 Dehydration; E87.5 Hyperkalemia; I48.91 Unspecified atrial fibrillation; Z79.84 Long term (current) use of oral hypoglycemic drugs; Z79.899 Other long term (current) drug therapy; Z87.891 Personal history of nicotine dependence; Z20.822 Contact with and (suspected) exposure to COVID-19; Z98.42 Cataract extraction status, left eye; Z98.41 Cataract extraction status, right eye; B34.8 Other viral infections of unspecified site; Z88.0 Allergy status to penicillin
CPT/HCPCS: 36415; 71046; 80053; 80061; 80306; 83036; 83735; 84443; 84484; 85025; 85610; 85652; 85730; 86140; 86658; 86747; 87635; 93005; 93306; 96361; 96374; 96375; 99285

== ENCOUNTER 2021-02-13 09:26 | Emergency (ER) | payer MEDICARE ==
[2021-02-13 09:32] VITALS: TEMP 97.9
--- NOTE | 2021-02-13 10:17 | ED ---
Arrhythmia/Palpitations HPI - General Chief Complaint: Arrhythmia/Palpitations Stated Complaint: high pulse, weakness Time Seen by Provider: 02/13/21 09:40 Source: patient Mode of arrival: wheelchair Limitations: physical limitation - History of Present Illness Initial Comments: Patient is an 80-year-old male presenting to emergency Department with comp laints of rapid heartbeat and dizziness that started this morning. Patient states he was just admitted for the hospital 2 weeks ago for similar complaint. He was diagnosed with A. fib with RVR, small pericardial effusion. Patient has been following with Dr. Johnson. Patient hasn't taken his meds as prescribed. He states last night he felt an episode of rapid heartbeat and then felt better so he went to sleep, he woke up at 4 AM this morning with similar symptoms. He denies any chest pains or shortness of breath. Currently at this time he is asymptomatic. He denies any nausea or vomiting, no fevers or chills. No abdominal pain. Denies a headache or dizziness. He has no further complaints at this time. Upon arrival to the ER, his vital signs are stable. - Related Data Home Medications Medication Instructions Recorded Confirmed Cholecalciferol [Vitamin D3 (25 25 mcg PO DAILY 01/30/21 02/13/21 Mcg = 1000 Iu)] Lisinopril [Zestril] 20 mg PO AC-SUPPER 01/30/21 02/13/21 Pravastatin Sodium [Pravachol] 20 mg PO AC-SUPPER 01/30/21 02/13/21 metFORMIN HCL [Glucophage] 500 mg PO DAILY 01/30/21 02/13/21 Colchicine [Colcrys] 0.6 mg PO DAILY 02/13/21 02/13/21 Previous Rx's Medication Instructions Recorded Metoprolol Tartrate [Lopressor] 25 mg PO BID #180 tab 02/01/21 Pioglitazone [Actos] 30 mg PO DAILY 30 Days #30 tab 02/01/21 Allergies Allergy/AdvReac Type Severity Reaction Status Date / Time Penicillins Allergy Rash/Hives Verified 02/13/21 10:33 Review of Systems ROS Statement: Those systems with pertinent positive or pertinent negative responses have been documented in the HPI. ROS Other: All systems not noted in ROS Statement are negative. Past Medical History Past Medical History: Diabetes Mellitus Additional Past Medical History / Comment(s): pericardial effusion History of Any Multi-Drug Resistant Organisms: None Reported Past Surgical History: Hernia Repair Additional Past Surgical History / Comment(s): BILATERAL CATARACTS REMOVED SEP 2020 Past Anesthesia/Blood Transfusion Reactions: No Reported Reaction Past Psychological History: No Psychological Hx Reported Smoking Status: Former smoker Past Alcohol Use History: Rare Past Drug Use History: None Reported - Past Family History Son(s) Family Medical History: Cancer General Exam - General Exam Comments Initial Comments: GENERAL: Patient is well-developed and well-nourished. Patient is nontoxic and in no acute distress. HEAD: Atraumatic, normocephalic. EYES: Pupils equal round and reactive to light, extraocular movements intact, sclera anicteric, conjunctiva are normal. Eyelids were unremarkable. ENT: TMs normal, nares patent, oropharynx clear without exudates. Moist mucous membranes. NECK: Normal range of motion, supple without lymphadenopathy or JVD. LUNGS: Unlabored respirations. Breath sounds clear to auscultation bilaterally and equal. No wheezes rales or rhonchi. HEART: Regular rate and rhythm without murmurs, rubs or gallops. ABDOMEN: Soft, nontender, normoactive bowel sounds. No guarding, no rebound. No masses appreciated. : Deferred MUSCULOSKELETAL: Normal extremities with adequate strength and normal range of motion, no pitting or edema. No clubbing or cyanosis. NEUROLOGICAL: Patient is alert and oriented x 3. Motor and sensory are also intact. Cranial nerves II through XII grossly intact. Symmetrical smile. Normal speech, normal gait. PSYCH: Normal mood, normal affect. SKIN: Warm, Dry, normal turgor, no rashes or lesions noted. Limitations: physical limitation Course Vital Signs 02/13/21 02/13/21 09:29 11:52 Temperature 97.9 F Pulse Rate 77 76 Respiratory 18 20 Rate Blood Pressure 159/87 131/77 O2 Sat by Pulse 98 100 Oximetry EKG Findings - EKG Comments: EKG Findings:: Sinus rhythm with first-degree AV block, left axis deviation, RBBB, no signs of an acute ischemia. Similar to previous EKG on 01/30/2021. Ventricular rate 69, NJ interval to 10, QT 382. Medical Decision Making - Medical Decision Making Patient is an 80-year-old male here with concerns for rapid heartbeat, dizziness this morning. He was admitted 2 weeks ago for same complaint, diagnosed with A. fib, small pleural effusion. He has been following with cardiology. Vitals are stable upon arrival, EKG shows sinus rhythm, no acute ischemia. Chest x-ray shows no definite acute process. Patient's white count is normal, glucose is elevated at 2:15, troponin is normal urine shows no evidence of infection. Speedy ordoñez's vital signs remained stable here in the ER. He has been completely asymptomatic here. 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 Patient is in agreement this plan of care and he is stable for discharge. Return parameters were discussed with them and they verbalized understanding. Case discussed with Dr. Mcgee. - Lab Data Result diagrams: 02/13/21 10:05 02/13/21 10:05 Lab Results 02/13/21 02/13/21 02/13/21 Range/Units 10:05 10:05 10:05 WBC 5.9 (3.8-10.6) k/uL RBC 5.01 (4.30-5.90) m/uL Hgb 15.0 (13.0-17.5) gm/dL Hct 44.4 (39.0-53.0) % MCV 88.8 (80.0-100.0) fL MCH 29.9 (25.0-35.0) pg MCHC 33.7 (31.0-37.0) g/dL RDW 13.2 (11.5-15.5) % Plt Count 226 (150-450) k/uL MPV 7.6 Neutrophils % 81 % Lymphocytes % 9 % Monocytes % 5 % Eosinophils % 3 % Basophils % 1 % Neutrophils # 4.8 (1.3-7.7) k/uL Lymphocytes # 0.6 L (1.0-4.8) k/uL Monocytes # 0.3 (0-1.0) k/uL Eosinophils # 0.2 (0-0.7) k/uL Basophils # 0.1 (0-0.2) k/uL PT 10.9 (9.0-12.0) sec INR 1.0 (<1.2) APTT 23.3 (22.0-30.0) sec Sodium 134 L (137-145) mmol/L Potassium 4.4 (3.5-5.1) mmol/L Chloride 99 (98-107) mmol/L Carbon Dioxide 25 (22-30) mmol/L Anion Gap 10 mmol/L BUN 13 (9-20) mg/dL Creatinine 1.08 (0.66-1.25) mg/dL Est GFR (CKD-EPI)AfAm 75 (>60 ml/min/1.73 sqM) Est GFR (CKD-EPI)NonAf 64 (>60 ml/min/1.73 sqM) Glucose 215 H (74-99) mg/dL Calcium 10.1 (8.4-10.2) mg/dL Magnesium 1.9 (1.6-2.3) mg/dL Total Bilirubin 1.0 (0.2-1.3) mg/dL AST 26 (17-59) U/L ALT 22 (4-49) U/L Alkaline Phosphatase 77 (38-126) U/L Troponin I (0.000-0.034) ng/mL Total Protein 7.5 (6.3-8.2) g/dL Albumin 4.5 (3.5-5.0) g/dL Urine Color Urine Appearance (Clear) Urine pH (5.0-8.0) Ur Specific [place] (1.001-1.035) Urine Protein (Negative) Urine Glucose (UA) (Negative) Urine Ketones (Negative) Urine Blood (Negative) Urine Nitrite (Negative) Urine Bilirubin (Negative) Urine Urobilinogen (<2.0) mg/dL Ur Leukocyte Esterase (Negative) 02/13/21 02/13/21 Range/Units 10:05 10:05 WBC (3.8-10.6) k/uL RBC (4.30-5.90) m/uL Hgb (13.0-17.5) gm/dL Hct (39.0-53.0) % MCV (80.0-100.0) fL MCH (25.0-35.0) pg MCHC (31.0-37.0) g/dL RDW (11.5-15.5) % Plt Count (150-450) k/uL MPV Neutrophils % % Lymphocytes % % Monocytes % % Eosinophils % % Basophils % % Neutrophils # (1.3-7.7) k/uL Lymphocytes # (1.0-4.8) k/uL Monocytes # (0-1.0) k/uL Eosinophils # (0-0.7) k/uL Basophils # (0-0.2) k/uL PT (9.0-12.0) sec INR (<1.2) APTT (22.0-30.0) sec Sodium (137-145) mmol/L Potassium (3.5-5.1) mmol/L Chloride (98-107) mmol/L Carbon Dioxide (22-30) mmol/L Anion Gap mmol/L BUN (9-20) mg/dL Creatinine (0.66-1.25) mg/dL Est GFR (CKD-EPI)AfAm (>60 ml/min/1.73 sqM) Est GFR (CKD-EPI)NonAf (>60 ml/min/1.73 sqM) Glucose (74-99) mg/dL Calcium (8.4-10.2) mg/dL Magnesium (1.6-2.3) mg/dL Total Bilirubin (0.2-1.3) mg/dL AST (17-59) U/L ALT (4-49) U/L Alkaline Phosphatase (38-126) U/L Troponin I <0.012 (0.000-0.034) ng/mL Total Protein (6.3-8.2) g/dL Albumin (3.5-5.0) g/dL Urine Color Light Yellow Urine Appearance Clear (Clear) Urine pH 6.0 (5.0-8.0) Ur Specific [place] 1.005 (1.001-1.035) Urine Protein Trace H (Negative) Urine Glucose (UA) 2+ H (Negative) Urine Ketones Negative (Negative) Urine Blood Negative (Negative) Urine Nitrite Negative (Negative) Urine Bilirubin Negative (Negative) Urine Urobilinogen <2.0 (<2.0) mg/dL Ur Leukocyte Esterase Negative (Negative) Disposition Clinical Impression: Palpitations Disposition: HOME SELF-CARE Condition: Stable Instructions (If sedation given, give patient instructions): Heart Palpitations (ED) Additional Instructions: Please return to the Emergency Department if symptoms worsen or any other concerns. Continue to follow-up with your water and sewer systems supervisor. Follow-up with your family doctor regarding elevated glucose levels. Is patient prescribed a controlled substance at d/c from ED?: No Referrals: Rebecca Zaragoza MD [Primary Care Provider] - 1-2 days Time of Disposition: 12:10
[2021-02-13 10:20] LABS: Basophils # (A) 0.1 k/uL (0-0.2); Basophils % (A) 1 %; Eosinophils # (A) 0.2 k/uL (0-0.7); Eosinophils % (A) 3 %; HCT 44.4 % (39.0-53.0); Lymphocytes # (A) 0.6 k/uL (1.0-4.8); Lymphocytes % (A) 9 %; MCH 29.9 pg (25.0-35.0); MCHC 33.7 g/dL (31.0-37.0); MCV 88.8 fL (80.0-100.0); Mean Platelet Volume 7.6; Monocytes # (A) 0.3 k/uL (0-1.0); Monocytes % (A) 5 %; Neutrophils # (A) 4.8 k/uL (1.3-7.7); Neutrophils % (A) 81 %; Platelet Count 226 k/uL (150-450); RBC 5.01 m/uL (4.30-5.90); RDW 13.2 % (11.5-15.5); WBC 5.9 k/uL (3.8-10.6)
[2021-02-13 10:34] LABS: Albumin 4.5 g/dL (3.5-5.0); Calcium 10.1 mg/dL (8.4-10.2); Magnesium 1.9 mg/dL (1.6-2.3); Potassium 4.4 mmol/L (3.5-5.1); Total Protein 7.5 g/dL (6.3-8.2)
[2021-02-13 10:43] LABS: Partial Thromboplastin Time 23.3 sec (22.0-30.0); Prothrombin Time 10.9 sec (9.0-12.0)
[2021-02-13 10:50] LABS: Appearance,Urine Clear (Clear); Bilirubin,Urine Negative (Negative); Blood,Urine Negative (Negative); Color,Urine Light Yellow; Glucose,Urine (UA) 2+ (Negative); Ketones,Urine Negative (Negative); Leukocyte Esterase,Urine Negative (Negative); Nitrite,Urine Negative (Negative); Protein,Urine Trace (Negative); Specific Gravity,Urine 1.005 (1.001-1.035); Urobilinogen,Urine <2.0 mg/dL (<2.0)
--- NOTE | 2021-02-13 11:48 | XR ---
EXAMINATION TYPE: XR chest 2V DATE OF EXAM: 02/13/2021 COMPARISON: 01/30/2021 HISTORY: 80-year-old male dysrhythmia TECHNIQUE: AP and lateral views FINDINGS: Heart upper limits of normal in size. Hazy peripheral lung densities likely relating to overlying sof t tissue. Some strandy atelectasis in the lower lungs. Probably vasculature within normal limits. No malcolm consolidation or pleural effusion. IMPRESSION: Strandy bibasilar atelectasis. Borderline heart size. No definite acute process.
[2021-02-13 11:53] VITALS: BP 131/77; PULSE 76; RESP 20
== END 2021-02-13 12:26 | disposition home or self-care (01) ==
LOC: EC 09:26
DX: R00.2 Palpitations (principal); R53.1 Weakness; R42 Dizziness and giddiness; I48.92 Unspecified atrial flutter; J90 Pleural effusion, not elsewhere classified; E11.9 Type 2 diabetes mellitus without complications; Z79.84 Long term (current) use of oral hypoglycemic drugs; Z79.899 Other long term (current) drug therapy; Z88.0 Allergy status to penicillin; Z87.891 Personal history of nicotine dependence
CPT/HCPCS: 36415; 71046; 80053; 81003; 83735; 84484; 85025; 85610; 85730; 99285

== ENCOUNTER 2022-11-30 10:09 | Inpatient (IN) | payer MEDICARE ==
[2022-11-30 10:27] LABS: Glucose,Whole Blood 180 mg/dL (70-110)
--- NOTE | 2022-11-30 10:39 | ED ---
General Adult HPI - General Chief complaint: Shortness of Breath Stated complaint: sob Time Seen by Provider: 11/30/22 10:24 Source: patient, family, RN notes reviewed Mode of arrival: wheelchair Limitations: no limitations - History of Present Illness Initial comments: Patient is a pleasant 82-year-old male presenting to the emergency department with concerns for difficulty breathing. Symptoms have been present for the past week or 2. Heart rate was high yesterday at 150 and again this morning. Patient has mild nonproductive cough. Patient has had some nasal congestion for the past several weeks. Patient does have history of pericardial effusion however not with similar symptoms to this. Patient has had some mild leg edema. No chest pain. No palpitations. - Related Data Home Medications Medication Instructions Recorded Confirmed Pravastatin Sodium [Pravachol] 20 mg PO W/SUPPER 01/30/21 11/30/22 metFORMIN HCL [Glucophage] 500 mg PO W/SUPPER 01/30/21 11/30/22 Ipratropium [place] [Ipratropium 1 spr EA NOSTRIL DAILY 11/30/22 11/30/22 [place] 0.03%] Levothyroxine Sodium [Synthroid] 50 mcg PO AC-BRKFST 11/30/22 11/30/22 Metoprolol Tartrate [Lopressor] 25 mg PO BID-W/MEALS 11/30/22 11/30/22 Pioglitazone [Actos] 45 mg PO W/SUPPER 11/30/22 11/30/22 Repaglinide [Prandin] 0.5 mg PO W/SUPPER 11/30/22 11/30/22 lisinopriL [Zestril] 20 mg PO DAILY 11/30/22 11/30/22 Allergies Allergy/AdvReac Type Severity Reaction Status Date / Time Penicillins Allergy Rash/Hives Verified 11/30/22 11:52 all over body Review of Systems ROS Statement: Those systems with pertinent positive or pertinent negative responses have been documented in the HPI. ROS Other: All systems not noted in ROS Statement are negative. Constitutional: Denies: fever Eyes: Denies: eye pain ENT: Denies: ear pain Respiratory: Reports: as per HPI, cough, dyspnea Cardiovascular: Denies: chest pain, palpitations Endocrine: Denies: fatigue Gastrointestinal: Denies: abdominal pain Genitourinary: Denies: dysuria Musculoskeletal: Denies: back pain Skin: Denies: rash Neurological: Denies: weakness Past Medical History Past Medical History: Diabetes Mellitus, Hyperlipidemia, Hypertension, Thyroid Disorder Additional Past Medical History / Comment(s): pericardial effusion History of Any Multi-Drug Resistant Organisms: None Reported Past Surgical History: Hernia Repair Additional Past Surgical History / Comment(s): BILATERAL CATARACTS REMOVED SEP 2020 Past Anesthesia/Blood Transfusion Reactions: No Reported Reaction Past Psychological History: No Psychological Hx Reported Smoking Status: Former smoker Past Alcohol Use History: Rare Past Drug Use History: None Reported - Past Family History Son(s) Family Medical History: Cancer General Exam Limitations: no limitations General appearance: alert, in no apparent distress Head exam: Present: normocephalic Eye exam: Present: normal appearance Neck exam: Present: normal inspection Respiratory exam: Present: normal lung sounds bilaterally Cardiovascular Exam: Present: tachycardia Expanded Peripheral pulses: 2+: Radial (R), Radial (L) GI/Abdominal exam: Present: soft, normal bowel sounds. Absent: tenderness Extremities exam: Present: pedal edema (+1 bilateral). Absent: calf tenderness Neurological exam: Present: alert Psychiatric exam: Present: normal affect, normal mood Skin exam: Present: normal color Course Vital Signs 11/30/22 11/30/22 11/30/22 10:18 10:36 11:38 Temperature 98 F Pulse Rate 148 H 147 H 92 Respiratory 24 20 18 Rate Blood Pressure 119/83 114/82 103/65 O2 Sat by Pulse 99 98 97 Oximetry 11/30/22 13:33 Temperature Pulse Rate 149 H Respiratory 17 Rate Blood Pressure 100/77 O2 Sat by Pulse 99 Oximetry - Reevaluation(s) Reevaluation #1: 11/30/22 11:45 Repeat EKG interpreted by myself a chill flutter with a rate of 90. Normal axis. Low QRS voltage precordial leads. Right bundle branch block. T-wave inversions. EKG Findings - EKG Results: EKG: interpreted by [place] (Atrial flutter with rapid ventricular response. [place] indeterminate. Right bundle branch block. Nonspecific ST-T.) Medical Decision Making - Medical Decision Making Was pt. sent in by a medical professional or institution (, PA, REAL ESTATE PROFESSIONAL, urgent care, hospital, or care home...) When possible be specific @ -No Did you speak to anyone other than the patient for history (EMS, parent, family, police, friend...)? What history was obtained from this source @ - helped provide significant history including blood pressure heart rate Did you review nursing and triage notes (agree or disagree)? Why? @ -I reviewed and agree with nursing and triage notes Were old charts reviewed (outside hosp., previous admission, EMS record, old EKG, old radiological studies, urgent care reports/EKG's, care home records)? Report findings @ -No old charts were reviewed Differential Diagnosis (chest pain, altered mental status, abdominal pain women, abdominal pain men, vaginal bleeding, weakness, fever, dyspnea, syncope, headache, dizziness, GI bleed, back pain, seizure, CVA, palpatations, mental health)? @ -Differential Dyspnea: Coronary syndrome, arrhythmia, tamponade, asthma, COPD, pulmonary embolism, pneumonia, pneumothorax, pulmonary effusion, anaphylaxis, diabetic ketoacidosis, flailed chest, pulmonary contusion, diaphragmatic rupture, anemia, neuromus cular, this is not meant to be an all-inclusive list. EKG interpreted by me (3pts min.). @ -As above X-rays interpreted by me (1pt min.). @ -Chest x-ray showed bilateral effusions, more in the right side, consistent with CHF interpreted by myself CT interpreted by me (1pt min.). @ -None done U/S interpreted by me (1pt. min.). @ -None done What testing was considered but not performed or refused? (CT, X-rays, U/S, labs)? Why? @ -None What meds were considered but not given or refused? Why? @ -Cardizem was originally held however patient became tachycardic again and Cardizem has been started Did you discuss the management of the patient with other professionals (professionals i.e. , PA, REAL ESTATE PROFESSIONAL, lab, RT, psych nurse, case management social worker, bridge tender, teacher, division officer weapons department, rn case mgr)? Give summary @ -Case was discussed with Dr. Clay, covering for Dr. ritchie who will admit. He agrees with cardiology consult. Was smoking cessation discussed for >3mins.? @ -No Was critical care preformed (if so, how long)? @ -Ye 34 minutes critical care time Were there social determinants of health that impacted care today? How? (Homelessness, low income, unemployed, alcoholism, drug addiction, transportation, low edu. Level, literacy, decrease access to med. care, half-way, rehab)? @ -No Was there de-escalation of care discussed even if they declined (Discuss DNR or withdrawal of care, Hospice)? DNR status @ -No What co-morbidities impacted this encounter? (DM, HTN, Smoking, COPD, CAD, Cancer, CVA, ARF, Chemo, Hep., AIDS, mental health diagnosis, sleep apnea, morbid obesity)? @ -History of a flutter Was patient admitted / discharged? Hospital course, mention meds given and route, prescriptions, significant lab abnormalities, going to OR and other pertinent info. @ -Patient's heart rate improved and then became tachycardic again. Patient reevaluated. Patient and family updated on results and plan. Undiagnosed new problem with uncertain prognosis? @ -No Drug Therapy requiring intensive monitoring for toxicity (Heparin, Nitro, Insulin, Cardizem)? @ -Patient will need monitoring of Cardizem. Were any procedures done? @ -No Diagnosis/symptom? @ -A flutter with RVR, CHF Acute, or Chronic, or Acute on Chronic? @ -Acute on chronic Uncomplicated (without systemic symptoms) or Complicated (systemic symptoms)? @ -Complicated by dyspnea Side effects of treatment? @ -No Exacerbation, Progression, or Severe Exacerbation? @ -Severe exacerbation Poses a threat to life or bodily function? How? (Chest pain, [place], OR, pneumonia, PE, COPD, DKA, ARF, appy, cholecystitis, CVA, Diverticulitis, Homicidal, Suicidal, threat to staff... and all critical care pts) @ -Poses a threat to bodily function and life by hypoxia and heart failure - Lab Data Result diagrams: 11/30/22 11:00 11/30/22 11:00 Lab Results 11/30/22 11/30/22 11/30/22 Range/Units 10:17 11:00 11:00 WBC 6.9 (3.8-10.6) k/uL RBC 3.68 L (4.30-5.90) m/uL Hgb 11.5 L (13.0-17.5) gm/dL Hct 35.0 L (39.0-53.0) % MCV 95.2 (80.0-100.0) fL MCH 31.2 (25.0-35.0) pg MCHC 32.8 (31.0-37.0) g/dL RDW 14.5 (11.5-15.5) % Plt Count 199 (150-450) k/uL MPV 8.5 Neutrophils % 89 % Lymphocytes % 3 % Monocytes % 5 % Eosinophils % 1 % Basophils % 0 % Neutrophils # 6.1 (1.3-7.7) k/uL Lymphocytes # 0.2 L (1.0-4.8) k/uL Monocytes # 0.4 (0-1.0) k/uL Eosinophils # 0.1 (0-0.7) k/uL Basophils # 0.0 (0-0.2) k/uL PT 11.9 (9.0-12.0) sec INR 1.1 (<1.2) APTT 23.8 (22.0-30.0) sec Sodium (137-145) mmol/L Potassium (3.5-5.1) mmol/L Chloride (98-107) mmol/L Carbon Dioxide (22-30) mmol/L Anion Gap mmol/L BUN (9-20) mg/dL Creatinine (0.66-1.25) mg/dL Est GFR (CKD-EPI)AfAm (>60 ml/min/1.73 sqM) Est GFR (CKD-EPI)NonAf (>60 ml/min/1.73 sqM) Glucose (74-99) mg/dL POC Glucose (mg/dL) 180 H (70-110) mg/dL POC Glu [employer] ID Stevan, Brady Calcium (8.4-10.2) mg/dL Magnesium (1.6-2.3) mg/dL Total Bilirubin (0.2-1.3) mg/dL AST (17-59) U/L ALT (4-49) U/L Alkaline Phosphatase (38-126) U/L Troponin I (0.000-0.034) ng/mL NT-Pro-B Natriuret Pep pg/mL Total Protein (6.3-8.2) g/dL Albumin (3.5-5.0) g/dL TSH (0.465-4.680) mIU/L Free T4 (0.78-2.19) ng/dL Free T3 pg/mL (2.8-5.3) pg/ml 11/30/22 11/30/22 11/30/22 Range/Units 11:00 11:00 11:00 WBC (3.8-10.6) k/uL RBC (4.30-5.90) m/uL Hgb (13.0-17.5) gm/dL Hct (39.0-53.0) % MCV (80.0-100.0) fL MCH (25.0-35.0) pg MCHC (31.0-37.0) g/dL RDW (11.5-15.5) % Plt Count (150-450) k/uL MPV Neutrophils % % Lymphocytes % % Monocytes % % Eosinophils % % Basophils % % Neutrophils # (1.3-7.7) k/uL Lymphocytes # (1.0-4.8) k/uL Monocytes # (0-1.0) k/uL Eosinophils # (0-0.7) k/uL Basophils # (0-0.2) k/uL PT (9.0-12.0) sec INR (<1.2) APTT (22.0-30.0) sec Sodium 128 L (137-145) mmol/L Potassium 5.1 (3.5-5.1) mmol/L Chloride 99 (98-107) mmol/L Carbon Dioxide 22 (22-30) mmol/L Anion Gap 7 mmol/L BUN 56 H (9-20) mg/dL Creatinine 0.99 (0.66-1.25) mg/dL Est GFR (CKD-EPI)AfAm 82 (>60 ml/min/1.73 sqM) Est GFR (CKD-EPI)NonAf 71 (>60 ml/min/1.73 sqM) Glucose 181 H (74-99) mg/dL POC Glucose (mg/dL) (70-110) mg/dL POC Glu [employer] ID Calcium 8.9 (8.4-10.2) mg/dL Magnesium 1.8 (1.6-2.3) mg/dL Total Bilirubin 1.1 (0.2-1.3) mg/dL AST 45 (17-59) U/L ALT 33 (4-49) U/L Alkaline Phosphatase 68 (38-126) U/L Troponin I <0.012 (0.000-0.034) ng/mL NT-Pro-B Natriuret Pep 3160 pg/mL Total Protein 6.4 (6.3-8.2) g/dL Albumin 3.6 (3.5-5.0) g/dL TSH 3.880 (0.465-4.680) mIU/L Free T4 1.43 (0.78-2.19) ng/dL Free T3 pg/mL 2.8 (2.8-5.3) pg/ml Critical Care Time Critical Care Time: Yes Total Critical Care Time: 34 Disposition Clinical Impression: Atrial flutter with rapid ventricular response, Congestive heart failure Disposition: ADMITTED IP TO THIS HOSP Is patient prescribed a controlled substance at d/c from ED?: No Referrals: Rebecca Zaragoza MD [Primary Care Provider] - 1-2 days Time of Disposition: 13:50
[2022-11-30] MEDS ORDERED: DILTIAZEM DRIP BOLUS FROM BAG 1 MG SOLN IV ONE (11:22)
[2022-11-30 11:31] LABS: Albumin 3.6 g/dL (3.5-5.0); Calcium 8.9 mg/dL (8.4-10.2); Total Bilirubin 1.1 mg/dL (0.2-1.3); Total Protein 6.4 g/dL (6.3-8.2)
[2022-11-30 11:33] LABS: Basophils % (A) 0 %; Eosinophils # (A) 0.1 k/uL (0-0.7); Eosinophils % (A) 1 %; HGB 11.5 gm/dL (13.0-17.5); Lymphocytes # (A) 0.2 k/uL (1.0-4.8); Lymphocytes % (A) 3 %; MCH 31.2 pg (25.0-35.0); MCHC 32.8 g/dL (31.0-37.0); MCV 95.2 fL (80.0-100.0); Mean Platelet Volume 8.5; Monocytes # (A) 0.4 k/uL (0-1.0); Monocytes % (A) 5 %; Neutrophils # (A) 6.1 k/uL (1.3-7.7); Neutrophils % (A) 89 %; Platelet Count 199 k/uL (150-450); RBC 3.68 m/uL (4.30-5.90); RDW 14.5 % (11.5-15.5); WBC 6.9 k/uL (3.8-10.6)
--- NOTE | 2022-11-30 11:36 | XR ---
EXAMINATION TYPE: XR chest 2V DATE OF EXAM: 11/30/2022 COMPARISON: 02/13/2021 TECHNIQUE: PA and lateral views submitted. HISTORY: Shortness of breath FINDINGS: Bilateral areas of consolidation and pleural effusion are noted with mild central interstitial patter n. No pneumothorax. Heart size is at the upper limits of normal with atherosclerotic change aorta. Mi ld hyperinflation correlate for COPD. Hypertrophic and degenerative change of the spine. IMPRESSION: 1. Bilateral infiltrate and pleural effusion greater on the right correlate for CHF. Otherwise consid er pneumonia.
[2022-11-30 11:47] LABS: T4, Free (Free Thyroxine) 1.43 ng/dL (0.78-2.19)
[2022-11-30 11:48] LABS: Magnesium 1.8 mg/dL (1.6-2.3); Potassium 5.1 mmol/L (3.5-5.1)
[2022-11-30 11:59] LABS: INR 1.1 (<1.2); Partial Thromboplastin Time 23.8 sec (22.0-30.0); Prothrombin Time 11.9 sec (9.0-12.0)
[2022-11-30] MEDS: DILTIAZEM 125 MG in SODIUM CHLORIDE 0.9% 100 ML IV SCH (13:32)
[2022-11-30] MEDS ORDERED: HEPARIN SODIUM 1,000 UN/ML (10ML VL) IV ONE (13:58)
[2022-11-30] MEDS ORDERED: HEPARIN SODIUM 1,000 UN/ML (10ML VL) IV PRN (13:58)
[2022-11-30] MEDS ORDERED: HEPARIN SOD,PORK IN 0.45% NACL 25,000 UNIT in 0.45% NACL 1 250ML.BAG IV SCH (14:00)
[2022-11-30] MEDS ORDERED: ASPIRIN 325 MG TAB PO STA (14:01)
[2022-11-30] MEDS: FUROSEMIDE 10 MG/ML 4 ML VIAL IV SCH (15:06)
[2022-11-30 16:53] LABS: Glucose,Whole Blood 185 mg/dL (70-110)
[2022-11-30] MEDS: METOPROLOL TARTRATE 25 MG TAB PO SCH (17:02)
--- NOTE | 2022-11-30 17:21 | P.HPIM ---
History of Present Illness H&P Date: 11/30/22 Kalen [place], is an 82 years old male who presented to [facility] emergency room with a chief complaint of shortness of breath. Patient states that his shortness of breath has started several weeks ago but has been worse recently. He was evaluated in the emergency room vital examination on presentation revealed a temperature of 98 pulse 148 respiration 24 blood pressure 119/83 pulse ox 99% on room air Laboratory data revealed a white blood count of 6.9 hemoglobin 11.5 platelet count 199 sodium 128 potassium 5.1 chloride 99 CO2 22 BUN 56 creatinine 0.99 glucose 181 troponin level less than 0.012 Testing in the emergency room revealed chest x-ray done in the emergency room revealed bilateral infiltrates and pleural effusions greater on the right, that represent congestive heart failure versus pneumonia. EKG done in the emergency room revealed evidence of atrial flutter with tachycardia and right bundle branch block. Patient was admitted to medical floor for further evaluation and treatment Past Medical History Past Medical History: Diabetes Mellitus, Hyperlipidemia, Hypertension, Thyroid Disorder Additional Past Medical History / Comment(s): pericardial effusion History of Any Multi-Drug Resistant Organisms: None Reported Past Surgical History: Hernia Repair Additional Past Surgical History / Comment(s): BILATERAL CATARACTS REMOVED SEP 2020 Past Anesthesia/Blood Transfusion Reactions: No Reported Reaction Past Psychological History: No Psychological Hx Reported Smoking Status: Former smoker Past Alcohol Use History: Rare Past Drug Use History: None Reported - Past Family History Son(s) Family Medical History: Cancer Medications and Allergies Home Medications Medication Instructions Recorded Confirmed Type Pravastatin Sodium [Pravachol] 20 mg PO W/SUPPER 01/30/21 11/30/22 History metFORMIN HCL [Glucophage] 500 mg PO W/SUPPER 01/30/21 11/30/22 History Ipratropium [place] [Ipratropium 1 spr EA NOSTRIL DAILY 11/30/22 11/30/22 History [place] 0.03%] Levothyroxine Sodium [Synthroid] 50 mcg PO AC-BRKFST 11/30/22 11/30/22 History Metoprolol Tartrate [Lopressor] 25 mg PO BID-W/MEALS 11/30/22 11/30/22 History Pioglitazone [Actos] 45 mg PO W/SUPPER 11/30/22 11/30/22 History Repaglinide [Prandin] 0.5 mg PO W/SUPPER 11/30/22 11/30/22 History lisinopriL [Zestril] 20 mg PO DAILY 11/30/22 11/30/22 History Allergies Allergy/AdvReac Type Severity Reaction Status Date / Time Penicillins Allergy Rash/Hives Verified 11/30/22 11:52 all over body Physical Exam Vitals: Vital Signs Temp Pulse Resp BP Pulse Ox 11/30/22 15:04 98 16 102/63 96 11/30/22 13:33 149 H 17 100/77 99 11/30/22 11:38 92 18 103/65 97 11/30/22 10:36 147 H 20 114/82 98 11/30/22 10:18 98 F 148 H 24 119/83 99 Intake and Output 11/30/22 11/30/22 11/30/22 06:59 14:59 22:59 Other: Weight 74.843 kg Results CBC & Chem 7: 11/30/22 11:00 11/30/22 11:00 Labs: Abnormal Lab Results - Last 24 Hours (Table) 11/30/22 11/30/22 11/30/22 Range/Units 10:17 11:00 11:00 RBC 3.68 L (4.30-5.90) m/uL Hgb 11.5 L (13.0-17.5) gm/dL Hct 35.0 L (39.0-53.0) % Lymphocytes # 0.2 L (1.0-4.8) k/uL Sodium 128 L (137-145) mmol/L BUN 56 H (9-20) mg/dL Glucose 181 H (74-99) mg/dL POC Glucose (mg/dL) 180 H (70-110) mg/dL Assessment and Plan Plan: Atrial flutter with rapid ventricular response, patient was started on IV heparin and IV Cardizem drip in the emergency room, will order echocardiogram and consult cardiology Dehydration with significant elevation in BUN at 56, will continue with very gentle hydration , Hyponatremia sodium 128 Bilateral pulmonary infiltrates and pleural effusion that may represent congestive heart failure versus pneumonia, however no clinical evidence of pneumonia there is no fever no cough and no leukocytosis, will hold off antibiotics at this time, pulmonary consultation was requested. Underlying history of [id number] diabetes mellitus Underlying history of hypertension Underlying history of hyperlipidemia At this time patient is admitted to telemetry floor Home medications reviewed and reordered Cardiology consultation and pulmonary consultation requested Continue with IV fluid, IV heparin and IV Cardizem drip Order echo cardiogram For DVT prophylaxis patient is on IV heparin Will continue to follow closely
[2022-11-30] MEDS ORDERED: PIOGLITAZONE 45 MG TAB PO SCH (17:30)
[2022-11-30] MEDS ORDERED: metFORMIN 500 MG TAB PO SCH (17:30)
[2022-11-30] MEDS ORDERED: PRAVASTATIN SODIUM 20 MG TAB PO SCH (17:30)
[2022-11-30] MEDS ORDERED: REPAGLINIDE 1 MG TAB PO SCH (17:30)
[2022-11-30] MEDS: NITROGLYCERIN OINT 1 INCH/GM PACKET TOPICAL SCH ×2 (18:05→22:42)
[2022-11-30 19:57] LABS: Glucose,Whole Blood 243 mg/dL (70-110)
[2022-11-30 21:59] LABS: Glucose,Whole Blood 121 mg/dL (70-110)
[2022-11-30] MEDS: INSULIN ASPART (NovoLOG) 100 UNIT/ML VIAL SQ SCH (22:00)
[2022-11-30] MEDS ORDERED: ONDANSETRON 4 MG/2 ML VIAL IVP PRN (23:26)
[2022-12-01] MEDS: FUROSEMIDE 10 MG/ML 4 ML VIAL IV SCH (01:19)
[2022-12-01 02:03] LABS: Glucose,Whole Blood 124 mg/dL (70-110)
[2022-12-01] MEDS ORDERED: NALOXONE 0.4 MG/ML 1 ML VIAL IV PRN (02:11)
[2022-12-01] MEDS: NOREPINEPHRINE 4 MG in SODIUM CHLORIDE 0.9% 250 ML IV SCH ×3 (02:44→11:55)
[2022-12-01] MEDS ORDERED: DEXTROSE 5% IN WATER 100 ML with AMIODARONE 150 MG IV ONE (03:30)
[2022-12-01] MEDS: AMIODARONE 360 MG in DEXTROSE 5% IN WATER 200 ML IV ONE ×4 (03:37→08:54)
[2022-12-01] MEDS: METOPROLOL TARTRATE 25 MG TAB PO SCH (06:49)
[2022-12-01] MEDS: LEVOTHYROXINE 50 MCG TAB PO SCH (06:49)
[2022-12-01] MEDS: DILTIAZEM 125 MG in SODIUM CHLORIDE 0.9% 100 ML IV SCH (06:51)
[2022-12-01 07:17] LABS: Glucose,Whole Blood 217 mg/dL (70-110)
[2022-12-01] MEDS: INSULIN ASPART (NovoLOG) 100 UNIT/ML VIAL SQ SCH ×4 (07:18→21:09)
[2022-12-01 07:24] LABS: Basophils % (A) 0 %; Eosinophils # (A) 0.1 k/uL (0-0.7); Eosinophils % (A) 1 %; HCT 21.5 % (39.0-53.0); Lymphocytes # (A) 0.4 k/uL (1.0-4.8); Lymphocytes % (A) 6 %; MCH 31.5 pg (25.0-35.0); MCHC 33.3 g/dL (31.0-37.0); MCV 94.7 fL (80.0-100.0); Mean Platelet Volume 8.4; Monocytes # (A) 0.5 k/uL (0-1.0); Monocytes % (A) 8 %; Neutrophils # (A) 5.4 k/uL (1.3-7.7); Neutrophils % (A) 83 %; Platelet Count 190 k/uL (150-450); RBC 2.27 m/uL (4.30-5.90); RDW 14.5 % (11.5-15.5); WBC 6.5 k/uL (3.8-10.6)
[2022-12-01 07:30] LABS: INR 1.3 (<1.2); Partial Thromboplastin Time 86.5 sec (22.0-30.0); Prothrombin Time 13.6 sec (9.0-12.0)
[2022-12-01 07:39] LABS: Albumin 2.4 g/dL (3.5-5.0); Calcium 8.2 mg/dL (8.4-10.2); Magnesium 1.7 mg/dL (1.6-2.3); Potassium 4.6 mmol/L (3.5-5.1); Total Protein 4.5 g/dL (6.3-8.2)
[2022-12-01 07:42] LABS: Total Bilirubin 0.7 mg/dL (0.2-1.3)
[2022-12-01 07:44] LABS: HGB 7.1 gm/dL (13.0-17.5)
--- NOTE | 2022-12-01 08:01 | P.CRDCN ---
History of Present Illness Consult date: 12/01/22 Chief complaint: Shortness of breath History of present illness: The patient is an 82-year-old gentleman with a past medical history significant for diabetes and hypertension and dyslipidemia and history of atrial tachycardia. We asked to see the patient as a consult here in the intensive care unit for further evaluation of atrial fibrillation with RVR and also for further evaluation of shortness of breath. The patient was seen and evaluated at that site. He is somewhat poor historian. He was falling speed when he was talking to me. Apparently he presented for about a week history of progressive exertional dyspnea and progressive weakness and dizziness and lightheadedness but no presyncope or syncope and no symptoms of chest pain or chest discomfort. He was evaluated in the emergency department. The initial hemoglobin was around 11 but subsequently the second hemoglobin dropped to about 7. He was hypotensive requiring norepinephrine he continues to be on norepinephrine. Also he was found to be in atrial fibrillation with RVR and subsequently was started on Cardizem IV as well as amiodarone IV. No history of atrial fibrillation before. He is known to have atrial tachycardia. The last echo from 2020 revealed preserved biventricular systolic function with no significant valvular abnormalities. The patient did have a bowel movement when he was on the floor and that was normal subsequently a second bowel movement in the intensive care unit was bloody. I believe the whole clinical scenario the patient including his symptoms of dizziness lightheadedness and shortness of breath is consistent with gastrointestinal bleeding. Currently he is on heparin which we are going to stop. He still hypotensive requiring norepinephrine. Distal in atrial fibrillation with heart rate around 100. On examination he seems to be in mild heart failure predominantly right was bilateral lower extent is pitting edema noted and diminished breathing sounds bilaterally. The chest x-ray showed findings consistent with CHF. The NT proBNP was not checked. We are going to check that Past Medical History Past Medical History: Diabetes Mellitus, Hyperlipidemia, Hypertension, Thyroid Disorder Additional Past Medical History / Comment(s): pericardial effusion History of Any Multi-Drug Resistant Organisms: None Reported Past Surgical History: Hernia Repair Additional Past Surgical History / Comment(s): BILATERAL CATARACTS REMOVED SEP 2020 Past Anesthesia/Blood Transfusion Reactions: No Reported Reaction Past Psychological History: No Psychological Hx Reported Smoking Status: Former smoker Past Alcohol Use History: Rare Past Drug Use History: None Reported Additional Drug Use History / Comment(s): smoked a pipe - Past Family History Son(s) Family Medical History: Cancer Mother Additional Family Medical History / Comment(s): parkinsons and dementia Sister(s) Additional Family Medical History / Comment(s): passed in 2021 from "blood clots" Medications and Allergies Home Medications Medication Instructions Recorded Confirmed Type Pravastatin Sodium [Pravachol] 20 mg PO W/SUPPER 01/30/21 11/30/22 History metFORMIN HCL [Glucophage] 500 mg PO W/SUPPER 01/30/21 11/30/22 History Ipratropium Lind[place] [Ipratropium 1 spr EA NOSTRIL DAILY 11/30/22 11/30/22 Hi story Lind[place] 0.03%] Levothyroxine Sodium [Synthroid] 50 mcg PO AC-BRKFST 11/30/22 11/30/22 History Metoprolol Tartrate [Lopressor] 25 mg PO BID-W/MEALS 11/30/22 11/30/22 History Pioglitazone [Actos] 45 mg PO W/SUPPER 11/30/22 11/30/22 History Repaglinide [Prandin] 0.5 mg PO W/SUPPER 11/30/22 11/30/22 History lisinopriL [Zestril] 20 mg PO DAILY 11/30/22 11/30/22 History Allergies Allergy/AdvReac Type Severity Reaction Status Date / Time Penicillins Allergy Rash/Hives Verified 11/30/22 11:52 all over body Physical Exam Vitals: Vital Signs Temp Pulse Pulse Resp BP BP Pulse Ox 12/01/22 07:00 134 H 15 88/50 97 12/01/22 06:45 96 20 88/55 97 12/01/22 06:30 135 H 14 94/41 98 12/01/22 06:15 118 H 27 H 94/51 98 12/01/22 06:00 138 H 20 99/54 96 12/01/22 05:45 140 H 21 86/45 95 12/01/22 05:30 126 H 24 86/52 96 12/01/22 05:15 140 H 27 H 105/55 94 L 12/01/22 05:00 140 H 15 102/52 96 12/01/22 04:45 140 H 20 88/56 96 12/01/22 04:30 140 H 13 87/50 98 12/01/22 04:15 138 H 23 92/55 96 12/01/22 04:00 97.1 F L 138 H 20 88/55 96 12/01/22 03:45 140 H 29 H 87/52 97 12/01/22 03:30 32 H 80/54 96 12/01/22 03:10 149 H 17 73/58 95 12/01/22 03:00 149 H 15 84/53 99 12/01/22 02:50 150 H 16 84/53 98 12/01/22 02:40 147 H 28 H 88/52 97 12/01/22 02:30 147 H 28 H 83/52 97 12/01/22 02:20 147 H 34 H 83/52 94 L 12/01/22 02:10 146 H 26 H 94/61 96 12/01/22 02:00 31 H 12/01/22 01:45 147 H 79/52 12/01/22 01:40 148 H 74/49 12/01/22 01:15 147 H 82/52 12/01/22 00:40 98 F 147 H 18 87/50 96 11/30/22 20:00 98 F 85 18 91/59 96 11/30/22 16:57 97.4 F L 119 H 18 121/59 93 L 11/30/22 15:04 98 16 102/63 96 11/30/22 13:33 149 H 17 100/77 99 11/30/22 11:38 92 18 103/65 97 11/30/22 10:36 147 H 20 114/82 98 11/30/22 10:18 98 F 148 H 24 119/83 99 Intake and Output 11/30/22 12/01/22 12/01/22 22:59 06:59 14:59 Intake Total 240 266.769 43.784 Output Total 1150 250 Balance -910 266.769 -206.216 Intake: Intake, IV Titration 266.769 43.784 Amount Diltiazem 125 mg In 99.499 Sodium Chloride 0.9% 100 ml @ 10 MG/HR 10 mls/hr IV .[id number] [facility] Rx#: [id number] Heparin Sod,Pork in 0.45% 80.38 43.784 NaCl 25,000 unit In 0.45 % NaCl 1 250ml.bag @ 12 UNITS/KG/HR 8.981 mls/hr IV .Q24H [facility] Rx#: [id number] Norepinephrine 4 mg In 86.890 Sodium Chloride 0.9% 250 ml @ 0.03 MCG/KG/MIN 7. 315 mls/hr IV .Q24H [facility] Rx#:[id number] Oral 240 Output: Urine 1150 250 Other: Voiding Method Urinal # Voids 1 0 # Bowel Movements 1 Weight 64 kg 75.7 kg Results 12/01/22 06:56 12/01/22 06:56 Cardiac Enzymes 11/30/22 11/30/22 11/30/22 Range/Units 11:00 11:00 14:58 AST 45 (17-59) U/L Troponin I <0.012 0.015 (0.000-0.034) ng/mL 11/30/22 12/01/22 Range/Units 18:24 06:56 AST 28 (17-59) U/L Troponin I 0.016 (0.000-0.034) ng/mL Coagulation 11/30/22 11/30/22 Range/Units 11:00 21:15 PT 11.9 (9.0-12.0) sec APTT 23.8 112.8 H* (22.0-30.0) sec CBC 11/30/22 12/01/22 Range/Units 11:00 06:56 WBC 6.9 6.5 (3.8-10.6) k/uL RBC 3.68 L 2.27 L (4.30-5.90) m/uL Hgb 11.5 L 7.1 L D (13.0-17.5) gm/dL Hct 35.0 L 21.5 L (39.0-53.0) % Plt Count 199 190 (150-450) k/uL Comprehensive Metabolic Panel 11/30/22 12/01/22 Range/Units 11:00 06:56 Sodium 128 L 127 L (137-145) mmol/L Potassium 5.1 4.6 (3.5-5.1) mmol/L Chloride 99 100 (98-107) mmol/L Carbon Dioxide 22 23 (22-30) mmol/L BUN 56 H 89 H (9-20) mg/dL Creatinine 0.99 1.26 H (0.66-1.25) mg/dL Glucose 181 H 181 H (74-99) mg/dL Calcium 8.9 8.2 L (8.4-10.2) mg/dL AST 45 28 (17-59) U/L ALT 33 23 (4-49) U/L Alkaline Phosphatase 68 51 (38-126) U/L Total Protein 6.4 4.5 L (6.3-8.2) g/dL Albumin 3.6 2.4 L (3.5-5.0) g/dL Current Medications Generic Name Dose Route Start Last Admin Trade Name Freq PRN Reason Stop Dose Admin Aspirin 325 mg 12/01/22 09:00 Aspirin 325 Mg Tab PO DAILY [facility] Heparin Sodium (Porcine) 0 unit 11/30/22 13:58 Heparin Sodium 1,000 Un/Ml (10ml Vl) IV PER PROTOCOL PRN Low PTT Protocol Heparin Sodium/Sodium Chloride 250 mls @ 8.981 mls/hr 11/30/22 14:00 12/01/22 07:49 25,000 unit/ Sodium Chloride IV 0 units/kg/hr .Q24H [facility] 0 mls/hr Titration Protocol 12 UNITS/KG/HR Norepinephrine Bitartrate 4 mg 254 mls @ 7.315 mls/hr 12/01/22 02:30 12/01/22 06:30 / Sodium Chloride IV 0.2 mcg/kg/min .Q24H [facility] 48.768 mls/hr Titration Protocol 0.03 MCG/KG/MIN Amiodarone HCl 360 mg/ 200 mls @ 33.333 mls/hr 12/01/22 03:45 12/01/22 03:37 Dextrose/Water IV 12/01/22 09:44 1 mg/min .Q6H [facility] 33.333 mls/hr Administration Protocol 1 MG/MIN Amiodarone HCl 450 mg/ 250 mls @ 16.667 mls/hr 12/01/22 10:00 Dextrose/Water IV 12/02/22 03:59 .Q15H [facility] Protocol 0.5 MG/MIN Insulin Aspart 0 unit 11/30/22 22:00 12/01/22 07:18 Insulin Aspart (Novolog) 100 Unit/Ml Vial SQ 2 unit ACHS [facility] Administration Protocol Ipratropium [place] 1 spray 12/01/22 09:00 Ipratropium [place] 0.06% Nasal Crowder (15 Ml) EA NOSTRIL DAILY [facility] Levothyroxine Sodium 50 mcg 12/01/22 07:30 12/01/22 06:49 Levothyroxine 50 Mcg Tab PO 50 mcg AC-BRKFST [facility] Administration Lisinopril 20 mg 12/01/22 09:00 Lisinopril 20 Mg Tab PO DAILY [facility] Metformin HCl 500 mg 11/30/22 17:30 11/30/22 17:02 Metformin 500 Mg Tab PO 500 mg W/SUPPER [facility] Administration Metoprolol Tartrate 25 mg 11/30/22 17:30 12/01/22 06:49 Metoprolol Tartrate 25 Mg Tab PO 25 mg BID-W/MEALS [facility] Administration Naloxone HCl 0.2 mg 12/01/22 02:11 Naloxone 0.4 Mg/Ml 1 Ml Vial IV Q2M PRN Opioid Reversal Nitroglycerin 1 inch 11/30/22 18:00 11/30/22 22:42 Nitroglycerin Oint 1 Inch/Gm Packet TOPICAL 1 inch QID [facility] Administration Ondansetron HCl 4 mg 11/30/22 23:26 12/01/22 07:35 Ondansetron 4 Mg/2 Ml Vial IVP 4 mg Q6HR PRN Administration Nausea And Vomiting Pioglitazone HCl 45 mg 11/30/22 17:30 11/30/22 18:04 Pioglitazone 45 Mg Tab PO 45 mg W/SUPPER [facility] Administration Pravastatin Sodium 20 mg 11/30/22 17:30 11/30/22 17:02 Pravastatin Sodium 20 Mg Tab PO 20 mg W/SUPPER [facility] Administration Repaglinide 0.5 mg 11/30/22 17:30 11/30/22 18:03 Repaglinide 1 Mg Tab PO 0.5 mg W/SUPPER [facility] Administration Intake and Output 11/30/22 12/01/22 12/01/22 22:59 06:59 14:59 Intake Total 240 266.769 43.784 Output Total 1150 250 Balance -910 266.769 -206.216 Intake: Intake, IV Titration 266.769 43.784 Amount Diltiazem 125 mg In 99.499 Sodium Chloride 0.9% 100 ml @ 10 MG/HR 10 mls/hr IV .[id number] [facility] Rx#: [id number] Heparin Sod,Pork in 0.45% 80.38 43.784 NaCl 25,000 unit In 0.45 % NaCl 1 250ml.bag @ 12 UNITS/KG/HR 8.981 mls/hr IV .Q24H [facility] Rx#: [id number] Norepinephrine 4 mg In 86.890 Sodium Chloride 0.9% 250 ml @ 0.03 MCG/KG/MIN 7. 315 mls/hr IV .Q24H [facility] Rx#:[id number] Oral 240 Output: Urine 1150 250 Other: Voiding Method Urinal # Voids 1 0 # Bowel Movements 1 Weight 64 kg 75.7 kg Patient Weight 12/02/22 06:59 Weight 75.7 kg 12/01/22 06:56 12/01/22 06:56 Assessment and Plan Assessment: Assessment Gastrointestinal bleeding Blood loss anemia secondary to gastrointestinal bleeding Hypotension requiring norepinephrine likely secondary to GI bleeding/hypovolemia Shortness of breath Heart failure predominantly right more than left Atrial fibrillation with RVR, this is a new diagnosis the patient Plan Stop the heparin in the light of gastrointestinal bleeding Stop the Cardizem in the light of hypotension requiring norepinephrine Continue amiodarone IV at this point Further investigation of the gastrointestinal bleeding Continue monitor the hemoglobin closely and consider blood transfusion hemoglobin drop below 7 Continue supporting blood pressure was norepinephrine DC Lasix in the light of low blood pressure. The patient is not hypoxic at this point. He does have only mild bilateral lower extremities edema
[2022-12-01] MEDS ORDERED: ASPIRIN 325 MG TAB PO SCH (09:00)
[2022-12-01] MEDS ORDERED: lisinopriL 20 MG TAB PO SCH (09:00)
[2022-12-01] MEDS ORDERED: PROTAMINE SULFATE 10 MG/ML 5 ML VIAL IV STA (09:21)
--- NOTE | 2022-12-01 09:30 | XR ---
EXAMINATION TYPE: XR chest 1V DATE OF EXAM: 12/01/2022 COMPARISON: 11/30/2022 HISTORY: Shortness of breath TECHNIQUE: Single frontal view of the chest is obtained. FINDINGS: Bilateral areas of consolidation and pleural effusion are noted with mild central intersti tial pattern. No pneumothorax. Heart size is at the upper limits of normal with atherosclerotic aguirre e aorta. Mild hyperinflation correlate for COPD. Hypertrophic and degenerative change of the spine. IMPRESSION: Bilateral infiltrate and pleural effusion greater on the right correlate for CHF. Otherw ise consider pneumonia.
[2022-12-01] MEDS ORDERED: SODIUM CHLORIDE 0.9% 1,000 ML IV ONE (09:43)
--- NOTE | 2022-12-01 09:59 | P.PN ---
Subjective Progress Note Date: 12/01/22 Kalen Birmingham, is an 82 years old male who presented to [facility] emergency room with a chief complaint of shortness of breath. Patient states that his shortness of breath has started several weeks ago but has been worse recently. He was evaluated in the emergency room vital examination on presentation revealed a temperature of 98 pulse 148 respiration 24 blood pressure 119/83 pulse ox 99% on room air Laboratory data revealed a white blood count of 6.9 hemoglobin 11.5 platelet count 199 sodium 128 potassium 5.1 chloride 99 CO2 22 BUN 56 creatinine 0.99 glucose 181 troponin level less than 0.012 Testing in the emergency room revealed chest x-ray done in the emergency room revealed bilateral infiltrates and pleural effusions greater on the right, that represent congestive heart failure versus pneumonia. EKG done in the emergency room revealed evidence of atrial flutter with tachycardia and right bundle branch block. Patient was admitted to medical floor for further evaluation and treatment On 12/01/2022 patient was transferred to the ICU around 2 AM this morning due to hypotension. Patient was started on Levophed. Per nursing staff around 7 AM patient started have evidence of maroon stooling and blood in emesis. Patient has continued to decline requiring increased doses of Levophed. Blood product has been ordered. Critical care, cardiology and surgical services are consulted. Objective - Vital Signs Vital signs: Vital Signs Temp 97.1 F L 12/01/22 09:43 Pulse 74 12/01/22 09:43 Resp 12 12/01/22 09:43 BP 67/55 12/01/22 09:43 Pulse Ox 94 L 12/01/22 09:43 FiO2 Intake & Output 11/30/22 12/01/22 12/01/22 18:59 06:59 18:59 Intake Total 240 266.769 402.376 Output Total 850 300 380 Balance -610 -33.231 22.376 Weight 64 kg 75.7 kg Intake: Intake, IV Titration 266.769 402.376 Amount Amiodarone 360 mg In 176.109 Dextrose 5% in Water 200 ml @ 1 MG/MIN 33.333 mls/ hr IV .Q6H [facility] Rx#: [id number] Diltiazem 125 mg In 99.499 5.333 Sodium Chloride 0.9% 100 ml @ 10 MG/HR 10 mls/hr IV .[id number] [facility] Rx#: [id number] Heparin Sod,Pork in 0.45% 80.38 43.784 NaCl 25,000 unit In 0.45 % NaCl 1 250ml.bag @ 12 UNITS/KG/HR 8.981 mls/hr IV .Q24H [facility] Rx#: [id number] Norepinephrine 4 mg In 86.890 177.150 Sodium Chloride 0.9% 250 ml @ 0.03 MCG/KG/MIN 7. 315 mls/hr IV .Q24H [facility] Rx#:[id number] Oral 240 Blood Product 0 Unit 0 Output: Urine 850 300 380 Other: Voiding Method Urinal # Voids 0 # Bowel Movements 1 - Exam Head normocephalic Neck supple Lungs clear to auscultation bilaterally no wheezing or crackles Heart irregular rate Abdomen is soft nontender nondistended positive bowel sounds no hepa tosplenomegaly Extremities no edema - Labs CBC & Chem 7: 12/01/22 06:56 12/01/22 06:56 Labs: Abnormal Lab Results - Last 24 Hours (Table) 11/30/22 11/30/22 11/30/22 Range/Units 10:17 11:00 11:00 RBC 3.68 L (4.30-5.90) m/uL Hgb 11.5 L (13.0-17.5) gm/dL Hct 35.0 L (39.0-53.0) % Lymphocytes # 0.2 L (1.0-4.8) k/uL PT (9.0-12.0) sec INR (<1.2) APTT (22.0-30.0) sec Sodium 128 L (137-145) mmol/L BUN 56 H (9-20) mg/dL Creatinine (0.66-1.25) mg/dL Glucose 181 H (74-99) mg/dL POC Glucose (mg/dL) 180 H (70-110) mg/dL Calcium (8.4-10.2) mg/dL Total Protein (6.3-8.2) g/dL Albumin (3.5-5.0) g/dL Crossmatch 11/30/22 11/30/22 11/30/22 Range/Units 16:45 19:55 21:15 RBC (4.30-5.90) m/uL Hgb (13.0-17.5) gm/dL Hct (39.0-53.0) % Lymphocytes # (1.0-4.8) k/uL PT (9.0-12.0) sec INR (<1.2) APTT 112.8 H* (22.0-30.0) sec Sodium (137-145) mmol/L BUN (9-20) mg/dL Creatinine (0.66-1.25) mg/dL Glucose (74-99) mg/dL POC Glucose (mg/dL) 185 H 243 H (70-110) mg/dL Calcium (8.4-10.2) mg/dL Total Protein (6.3-8.2) g/dL Albumin (3.5-5.0) g/dL Crossmatch 11/30/22 12/01/22 12/01/22 Range/Units 21:58 02:01 06:56 RBC 2.27 L (4.30-5.90) m/uL Hgb 7.1 L D (13.0-17.5) gm/dL Hct 21.5 L (39.0-53.0) % Lymphocytes # 0.4 L (1.0-4.8) k/uL PT (9.0-12.0) sec INR (<1.2) APTT (22.0-30.0) sec Sodium (137-145) mmol/L BUN (9-20) mg/dL Creatinine (0.66-1.25) mg/dL Glucose (74-99) mg/dL POC Glucose (mg/dL) 121 H 124 H (70-110) mg/dL Calcium (8.4-10.2) mg/dL Total Protein (6.3-8.2) g/dL Albumin (3.5-5.0) g/dL Crossmatch 12/01/22 12/01/22 12/01/22 Range/Units 06:56 06:56 07:15 RBC (4.30-5.90) m/uL Hgb (13.0-17.5) gm/dL Hct (39.0-53.0) % Lymphocytes # (1.0-4.8) k/uL PT 13.6 H (9.0-12.0) sec INR 1.3 H (<1.2) APTT 86.5 H (22.0-30.0) sec Sodium 127 L (137-145) mmol/L BUN 89 H (9-20) mg/dL Creatinine 1.26 H (0.66-1.25) mg/dL Glucose 181 H (74-99) mg/dL POC Glucose (mg/dL) 217 H (70-110) mg/dL Calcium 8.2 L (8.4-10.2) mg/dL Total Protein 4.5 L (6.3-8.2) g/dL Albumin 2.4 L (3.5-5.0) g/dL Crossmatch 12/01/22 Range/Units 08:30 RBC (4.30-5.90) m/uL Hgb (13.0-17.5) gm/dL Hct (39.0-53.0) % Lymphocytes # (1.0-4.8) k/uL PT (9.0-12.0) sec INR (<1.2) APTT (22.0-30.0) sec Sodium (137-145) mmol/L BUN (9-20) mg/dL Creatinine (0.66-1.25) mg/dL Glucose (74-99) mg/dL POC Glucose (mg/dL) (70-110) mg/dL Calcium (8.4-10.2) mg/dL Total Protein (6.3-8.2) g/dL Albumin (3.5-5.0) g/dL Crossmatch See Detail Assessment and Plan Plan: Atrial flutter with rapid ventricular response, patient was started on IV heparin and IV Cardizem drip in the emergency room, will order echocardiogram and consult cardiology. Heparin drip was DC'd due to GI bleed. Patient has been started on amiodarone and Cardizem drip DC'd acute GI bleed. Heparin drip DC'd. Surgical service is consulted blood product ordered Blood loss anemia secondary to GI bleed Hypotension. Patient started on Levophed and transferred to ICU Dehydration with significant elevation in BUN at 56, will continue with very gentle hydration , Hyponatremia sodium 128 Bilateral pulmonary infiltrates and pleural effusion that may represent congestive heart failure versus pneumonia, however no clinical evidence of pneumonia there is no fever no cough and no leukocytosis, will hold off antibiotics at this time, pulmonary consultation was requested. Underlying history of [id number] diabetes mellitus Underlying history of hypertension Underlying history of hyperlipidemia At this time patient is admitted to telemetry floor Patient has been transferred to the ICU for higher level care Patient remains on Levophed for pressure support 3 units PRBCs ordered Critical care, cardiology, surgical services and nephrology service is consulted Patient remains on amiodarone
--- NOTE | 2022-12-01 10:36 | P.NPCON ---
History of Present Illness - Reason for Consult acute renal failure - History of Present Illness Patient is a 82-year-old male with history of type 2 diabetes hypertension hyperlipidemia who was admitted to the hospital with complaints of shortness of breath. He was noted to have bilateral pleural effusions and chest x-ray was suggestive of CHF. Troponin was elevated at 0.115 and patient was started on heparin. He developed a GI bleed and was transferred to the ICU. Patient's systolic blood pressure was low in the 60s to 70s. He is currently receiving packed RBCs. And heparin is currently on hold. Hemoglobin dropped from 11.5-7.1 g/dL. Serum creatinine increased from 0.9-1.2. Sanders catheter was just placed and poor urine output is noted. Serum sodium has been 128-127 Review of Systems As per HPI Past Medical History Past Medical History: Diabetes Mellitus, Hyperlipidemia, Hypertension, Thyroid Disorder Additional Past Medical History / Comment(s): pericardial effusion History of Any Multi-Drug Resistant Organisms: None Reported Past Surgical History: Hernia Repair Additional Past Surgical History / Comment(s): BILATERAL CATARACTS REMOVED SEP 2020 Past Anesthesia/Blood Transfusion Reactions: No Reported Reaction Past Psychological History: No Psychological Hx Reported Smoking Status: Former smoker Past Alcohol Use History: Rare Past Drug Use History: None Reported Additional Drug Use History / Comment(s): smoked a pipe - Past Family History Son(s) Family Medical History: Cancer Mother Additional Family Medical History / Comment(s): parkinsons and dementia Sister(s) Additional Family Medical History / Comment(s): passed in 2021 from "blood clots" Medications and Allergies Home Medications Medication Instructions Recorded Confirmed Type Pravastatin Sodium [Pravachol] 20 mg PO W/SUPPER 01/30/21 11/30/22 History metFORMIN HCL [Glucophage] 500 mg PO W/SUPPER 01/30/21 11/30/22 History Ipratropium [place] [Ipratropium 1 spr EA NOSTRIL DAILY 11/30/22 11/30/22 History [place] 0.03%] Levothyroxine Sodium [Synthroid] 50 mcg PO AC-BRKFST 11/30/22 11/30/22 History Metoprolol Tartrate [Lopressor] 25 mg PO BID-W/MEALS 11/30/22 11/30/22 History Pioglitazone [Actos] 45 mg PO W/SUPPER 11/30/22 11/30/22 History Repaglinide [Prandin] 0.5 mg PO W/SUPPER 11/30/22 11/30/22 History lisinopriL [Zestril] 20 mg PO DAILY 11/30/22 11/30/22 History Allergies Allergy/AdvReac Type Severity Reaction Status Date / Time Penicillins Allergy Rash/Hives Verified 11/30/22 11:52 all over body Physical Exam Vitals: Vital Signs Temp Pulse Pulse Resp BP BP Pulse Ox 12/01/22 10:25 96.2 F L 100 20 110/56 12/01/22 10:18 96.1 F L 80 93/62 12/01/22 10:08 96.2 F L 86 15 92/72 92 L 12/01/22 10:03 79 100/61 12/01/22 09:43 97.1 F L 74 12 67/55 94 L 12/01/22 09:38 77 82/55 12/01/22 09:00 105 H 12 85/43 92 L 12/01/22 08:45 126 H 26 H 86/43 97 12/01/22 08:30 130 H 16 78/50 96 12/01/22 08:15 43 H 80/61 12/01/22 08:00 97.1 F L 126 H 19 97/50 100 12/01/22 07:45 131 H 16 90/51 96 12/01/22 07:30 89 43 H 77/48 97 12/01/22 07:15 98 35 H 84/48 98 12/01/22 07:00 134 H 15 88/50 97 12/01/22 06:45 96 20 88/55 97 12/01/22 06:30 135 H 14 94/41 98 12/01/22 06:15 118 H 27 H 94/51 98 12/01/22 06:00 138 H 20 99/54 96 12/01/22 05:45 140 H 21 86/45 95 12/01/22 05:30 126 H 24 86/52 96 12/01/22 05:15 140 H 27 H 105/55 94 L 12/01/22 05:00 140 H 15 102/52 96 12/01/22 04:45 140 H 20 88/56 96 12/01/22 04:30 140 H 13 87/50 98 12/01/22 04:15 138 H 23 92/55 96 12/01/22 04:00 97.1 F L 138 H 20 88/55 96 12/01/22 03:45 140 H 29 H 87/52 97 12/01/22 03:30 32 H 80/54 96 12/01/22 03:10 149 H 17 73/58 95 12/01/22 03:00 149 H 15 84/53 99 12/01/22 02:50 150 H 16 84/53 98 12/01/22 02:40 147 H 28 H 88/52 97 12/01/22 02:30 147 H 28 H 83/52 97 12/01/22 02:20 147 H 34 H 83/52 94 L 12/01/22 02:10 146 H 26 H 94/61 96 12/01/22 02:00 31 H 12/01/22 01:45 147 H 79/52 12/01/22 01:40 148 H 74/49 12/01/22 01:15 147 H 82/52 12/01/22 00:40 98 F 147 H 18 87/50 96 11/30/22 20:00 98 F 85 18 91/59 96 11/30/22 16:57 97.4 F L 119 H 18 121/59 93 L 11/30/22 15:04 98 16 102/63 96 11/30/22 13:33 149 H 17 100/77 99 11/30/22 11:38 92 18 103/65 97 11/30/22 10:36 147 H 20 114/82 98 Intake and Output 11/30/22 12/01/22 12/01/22 22:59 06:59 14:59 Intake Total 240 076.682 1151.267 Output Total 1150 420 Balance -910 877.477 7991.267 Intake: IV 1000 0.9 Bolus 1000 Intake, IV Titration 266.769 446.267 Amount Amiodarone 360 mg In 176.109 Dextrose 5% in Water 200 ml @ 1 MG/MIN 33.333 mls/ hr IV .Q6H [facility] Rx#: [id number] Diltiazem 125 mg In 99.499 5.333 Sodium Chloride 0.9% 100 ml @ 10 MG/HR 10 mls/hr IV .[id number] [facility] Rx#: [id number] Heparin Sod,Pork in 0.45% 80.38 43.784 NaCl 25,000 unit In 0.45 % NaCl 1 250ml.bag @ 12 UNITS/KG/HR 8.981 mls/hr IV .Q24H [facility] Rx#: [id number] Norepinephrine 4 mg In 86.890 221.041 Sodium Chloride 0.9% 250 ml @ 0.03 MCG/KG/MIN 7. 315 mls/hr IV .Q24H [facility] Rx#:[id number] Oral 240 Blood Product 620 Rc As-1 Unit 310 [id number] Rc As-1 Unit 310 [id number] Output: Urine 1150 420 Other: Voiding Method Urinal # Voids 1 0 # Bowel Movements 1 Weight 64 kg 75.7 kg Awake, comfortable, no acute distress A central line is currently being placed Lungs and heart are not examined Abdomen is soft No edema noted in lower extremities No gross motor deficits noted Results - Lab Results Most recent lab results Calcium 8.2 mg/dL (8.4-10.2) L 12/01/22 06:56 Magnesium 1.7 mg/dL (1.6-2.3) 12/01/22 06:56 12/01/22 06:56 12/01/22 06:56 Assessment and Plan Assessment: 1. Acute kidney injury secondary to hypotension and hypovolemia currently oliguric. Check UA 2. Hyponatremia mostly hypervolemic initially however currently patient is hypovolemic from severe anemia and GI bleed. 3. Acute GI bleed 4. Acute blood loss anemia from GI bleed 5. CHF mostly right-sided 6. A. fib with RVR, new onset Plan: Transfuse packed RBCs Patient may need another fluid bolus Repeat electrolytes later this afternoon Add pressors if needed. Patient is fairly comfortable from respiratory standpoint. I believe he can tolerate fluids acutely. It is mostly right-sided heart failure. Echocard iogram in January 2022 showed EF of 60-65% with normal left atrium. Repeat echo is pending. Next Thank you for the consultation. We will continue to follow the patient with you during his hospitalization
--- NOTE | 2022-12-01 11:04 | PCN ---
PROCEDURE NOTE PULMONARY/CRITICAL CARE PROCEDURE NOTE: PROCEDURE PERFORMED: Right radial art line. PREOPERATIVE DIAGNOSES: Frequent blood draws and blood gas monitoring, hypotension. POSTOPERATIVE DIAGNOSES: Frequent blood draws and blood gas monitoring, hypotension. CO-SURGEONS: Dr. Conklin and Darwin Shi NP There was informed consent and universal timeout. The patient's procedure took place in room 267. DESCRIPTION OF PROCEDURE: A time-out was completed verifying correct patient, procedure, site, positioning, and implant(s) or special equipment if applicable. Rl's test was performed to ensure adequate perfusion. The patient's right wrist was prepped and draped in sterile fashion. 1% Lidocaine was used to anesthetize the area. An 18G Arrow arterial line was introduced into the radial artery. The catheter was threaded over the guide wire and the needle was removed with appropriate pulsatile blood return. Blood loss was minimal. The catheter was then sutured in place to the skin and a sterile dressing applied. Perfusion to the extremity distal to the point of catheter insertion was checked and found to be adequate. There was good blood return and waveform. The patient tolerated the procedure well. The catheter was sutured in place. A sterile dressing was applied by the nurse. There was no immediate complication. MMODL / IJN: [id number] /
--- NOTE | 2022-12-01 11:09 | XR ---
EXAMINATION TYPE: XR chest 1V portable DATE OF EXAM: 12/01/2022 COMPARISON: 12/01/2022 HISTORY: Central line placement TECHNIQUE: Single frontal view of the chest is obtained. FINDINGS: Left-sided central line seen with tip overlying the SVC. There is bilateral consolidation and pleural effusion which is increased on the right. Underlying CHF in the differential diagnosis. H eart size stable. Atherosclerotic change aorta. IMPRESSION: 1. Central line with the tip overlying the SVC caval junction. No pneumothorax. 2. Increasing right-sided pleural effusion and consolidation. Correlate for increasing CHF and pulmon kamari edema versus pneumonia.
--- NOTE | 2022-12-01 11:22 | PCN ---
PROCEDURE NOTE PROCEDURE: Left subclavian triple-lumen catheter. PREOPERATIVE DIAGNOSIS: Administration of fluids and pressors. The patient's procedure was done in room 267. CO-SURGEONS: 1. Dr. Conklin. 2. Darwin Shi. REASONS FOR PROCEDURE: Hypotension, administration of pressors, frequent blood draws. POSTOPERATIVE DIAGNOSES: Hypotension, administration of pressors, frequent blood draws. TRIPLE LUMEN CATHETER PLACEMENT: Indication: Hemodynamic monitoring/Intravenous access. A time-out was completed verifying correct patient, procedure, site, positioning, and implant(s) or special equipment if applicable. The patient was placed in a dependent position appropriate for triple lumen catheter placement based on the vein to be cannulated. The patient's left shoulder was prepped and draped in sterile fashion. 1% Lidocaine was used to anesthetize the surrounding skin area. A triple lumen 9F Cordis catheter was introduced into the left subclavian vein using Seldinger technique. The catheter was threaded smoothly over the guide wire and appropriate blood return was obtained. Each lumen of the catheter was evacuated of air and flushed with sterile saline. The catheter was then sutured in place to the skin and a sterile dressing applied. Perfusion to the extremity distal to the point of catheter insertion was checked and found to be adequate. The left subclavian site was used. There was no immediate complication. There was informed consent and universal time-out by the way. There was good blood return. Tip of catheter was seen at the junction of superior vena cava and right atrium. The catheter was sutured in place. Sterile dressing was applied by the nurse. The patient tolerated the procedure well. MMODL / IJN: [id number] /
--- NOTE | 2022-12-01 11:34 | PCN ---
PROCEDURE NOTE PULMONARY/CRITICAL CARE PROCEDURE NOTE: PROCEDURE PERFORMED: Left radial art line. PREOPERATIVE DIAGNOSES: Frequent blood draws and blood gas monitoring, hypotension. POSTOPERATIVE DIAGNOSES: Frequent blood draws and blood gas monitoring, hypotension. CO-SURGEON: Dr. Conklin and Darwin Shi NP The patient's procedure took place in room 267 in intensive care unit. There was informed consent and universal timeout. DESCRIPTION OF PROCEDURE: A time-out was completed verifying correct patient, procedure, site, positioning, and implant(s) or special equipment if applicable. Rl's test was performed to ensure adequate perfusion. The patient's left wrist was prepped and draped in sterile fashion. 1% Lidocaine was used to anesthetize the area. An 18G Arrow arterial line was introduced into the radial artery. The catheter was threaded over the guide wire and the needle was removed with appropriate pulsatile blood return. Blood loss was minimal. The catheter was then sutured in place to the skin and a sterile dressing applied. Perfusion to the extremity distal to the point of catheter insertion was checked and found to be adequate. The patient tolerated the procedure well and there were no complications. We used the left radial artery. There was good blood return and waveform. The catheter was sutured in place. A sterile dressing was applied by the nurse. There was no immediate complication. Again, the patient tolerated the procedure well. MMODL / IJN: [id number] /
[2022-12-01] MEDS: IPRATROPIUM BROMIDE 0.06% NASAL SPRAY (15 ML) EA NOSTRIL SCH (12:37)
[2022-12-01] MEDS: AMIODARONE 450 MG in DEXTROSE 5% IN WATER 250 ML IV SCH ×2 (13:04)
--- NOTE | 2022-12-01 13:04 | P.CNPUL ---
History of Present Illness Consult date: 12/01/22 Requesting physician: Joseluis Clay Reason for consult: dyspnea, hypoxemia, other Chief complaint: Hypotension. History of present illness: Pulmonary/critical care consult dated 12/01/2022. 82-year-old male who was admitted in the emergency department, on November 30, for shortness of breath. He apparently came they're presenting with a couple weeks worth of increasing and progressive shortness of breath. His heart rate was rather high, up to 150 bpm. The patient also had a mild nonproductive cough, and some nasal congestion. The patient was admitted to the general medical floor, and sometime last night, became hypotensive, and the linux programmer wanted him to be transferred down to the intensive care unit, treatment with norepinephrine. I'm seeing him for the first time this morning, in room 267. The patient does have a history of hypertension, diabetes, hyperlipidemia, and hypothyroidism. In addition, the patient developed a gastrointestinal bleed this morning, both with maroon stools, and vomiting up blood. His hemoglobin dropped from 11.5, down to 7.1. When seen this morning, the patient was on 3 L of oxygen, norepinephrine at 30 mcg/m, and amiodarone at 1 mg/m. The patient had blood work ordered as well. I asked for a stat cortisol level and a TSH. Also, we placed an arterial line, and a central line in this patient, for better monitoring and management. White count 6.5, hemoglobin 7.1, hematocrit 21.5, and platelet count was normal. PT 13.6 with an INR 1.3. Sodium 127, potassium 4.6, chlorides 100, CO2 23, BUN 89, and creatinine 1.26. Troponin was 0.115. TSH was normal. Cortisol level was 20. Chest x-ray showed a properly placed central line, and increasing right-sided pleural effusion with consolidation. Review of Systems REVIEW OF SYSTEMS: CONSTITUTIONAL: Weakness. NEUROLOGIC: Confusion. HEENT: [ Negative.] CARDIAC: Rapid heartbeat. PULMONARY: Shortness of breath. GI: Acute GI bleed. : [Negative.] RHEUMATOLOGIC: [ Negative.] IMMUNOLOGIC: [ Negative.] ENDOCRINE: [Negative. ] DERMATOLOGIC: [Negative.] Past Medical History Past Medical History: Diabetes Mellitus, Hyperlipidemia, Hypertension, Thyroid Disorder Additional Past Medical History / Comment(s): pericardial effusion History of Any Multi-Drug Resistant Organisms: None Reported Past Surgical History: Hernia Repair Additional Past Surgical History / Comment(s): BILATERAL CATARACTS REMOVED SEP 2020 Past Anesthesia/Blood Transfusion Reactions: No Reported Reaction Past Psychological History: No Psychological Hx Reported Smoking Status: Former smoker Past Alcohol Use History: Rare Past Drug Use History: None Reported Additional Drug Use History / Comment(s): smoked a pipe - Past Family History Son(s) Family Medical History: Cancer Mother Additional Family Medical History / Comment(s): parkinsons and dementia Sister(s) Additional Family Medical History / Comment(s): passed in 2021 from "blood clots" Medications and Allergies Home Medications Medication Instructions Recorded Confirmed Type Pravastatin Sodium [Pravachol] 20 mg PO W/SUPPER 01/30/21 11/30/22 History metFORMIN HCL [Glucophage] 500 mg PO W/SUPPER 01/30/21 11/30/22 History Ipratropium [place] [Ipratropium 1 spr EA NOSTRIL DAILY 11/30/22 11/30/22 History [place] 0.03%] Levothyroxine Sodium [Synthroid] 50 mcg PO AC-BRKFST 11/30/22 11/30/22 History Metoprolol Tartrate [Lopressor] 25 mg PO BID-W/MEALS 11/30/22 11/30/22 History Pioglitazone [Actos] 45 mg PO W/SUPPER 11/30/22 11/30/22 History Repaglinide [Prandin] 0.5 mg PO W/SUPPER 11/30/22 11/30/22 History lisinopriL [Zestril] 20 mg PO DAILY 11/30/22 11/30/22 History Allergies Allergy/AdvReac Type Severity Reaction Status Date / Time Penicillins Allergy Rash/Hives Verified 11/30/22 11:52 all over body Physical Exam Osteopathic Statement: *. No significant issues noted on an osteopathic structural exam other than those noted in the History and Physical/Consult. Vitals: Vital Signs Temp Pulse Pulse Resp BP BP Pulse Ox 12/01/22 12:45 75 35 H 117/63 100 12/01/22 12:30 75 32 H 109/55 95 12/01/22 12:15 34 H 105/58 98 12/01/22 12:00 97.4 F L 11 L 122/61 97 12/01/22 11:45 92 12 118/57 93 L 12/01/22 11:30 97.1 F L 95 30 H 114/55 94 L 12/01/22 11:15 92 30 H 105/56 91 L 12/01/22 11:10 89 20 117/92 92 L 12/01/22 11:00 96.1 F L 90 21 103/44 94 L 12/01/22 10:45 85 28 H 101/54 95 12/01/22 10:30 83 30 H 110/56 92 L 12/01/22 10:25 96.2 F L 100 20 110/56 12/01/22 10:18 96.1 F L 80 93/62 12/01/22 10:15 81 33 H 92/72 94 L 12/01/22 10:08 96.2 F L 86 15 92/72 92 L 12/01/22 10:03 79 100/61 12/01/22 10:00 78 30 H 80/44 98 12/01/22 09:45 78 32 H 67/55 100 12/01/22 09:43 97.1 F L 74 12 67/55 94 L 12/01/22 09:38 77 82/55 12/01/22 09:30 87 31 H 78/66 100 12/01/22 09:15 125 H 18 83/48 96 12/01/22 09:00 105 H 12 85/43 92 L 12/01/22 08:45 126 H 26 H 86/43 97 12/01/22 08:30 130 H 16 78/50 96 12/01/22 08:15 43 H 80/61 12/01/22 08:00 97.1 F L 126 H 19 97/50 100 12/01/22 07:45 131 H 16 90/51 96 12/01/22 07:30 89 43 H 77/48 97 12/01/22 07:15 98 35 H 84/48 98 12/01/22 07:00 134 H 15 88/50 97 12/01/22 06:45 96 20 88/55 97 12/01/22 06:30 135 H 14 94/41 98 12/01/22 06:15 118 H 27 H 94/51 98 12/01/22 06:00 138 H 20 99/54 96 12/01/22 05:45 140 H 21 86/45 95 12/01/22 05:30 126 H 24 86/52 96 12/01/22 05:15 140 H 27 H 105/55 94 L 12/01/22 05:00 140 H 15 102/52 96 12/01/22 04:45 140 H 20 88/56 96 12/01/22 04:30 140 H 13 87/50 98 12/01/22 04:15 138 H 23 92/55 96 12/01/22 04:00 97.1 F L 138 H 20 88/55 96 12/01/22 03:45 140 H 29 H 87/52 97 12/01/22 03:30 32 H 80/54 96 12/01/22 03:10 149 H 17 73/58 95 12/01/22 03:00 149 H 15 84/53 99 12/01/22 02:50 150 H 16 84/53 98 12/01/22 02:40 147 H 28 H 88/52 97 12/01/22 02:30 147 H 28 H 83/52 97 12/01/22 02:20 147 H 34 H 83/52 94 L 12/01/22 02:10 146 H 26 H 94/61 96 12/01/22 02:00 31 H 12/01/22 01:45 147 H 79/52 12/01/22 01:40 148 H 74/49 12/01/22 01:15 147 H 82/52 12/01/22 00:40 98 F 147 H 18 87/50 96 11/30/22 20:00 98 F 85 18 91/59 96 11/30/22 16:57 97.4 F L 119 H 18 121/59 93 L 11/30/22 15:04 98 16 102/63 96 11/30/22 13:33 149 H 17 100/77 99 Intake and Output 11/30/22 12/01/22 12/01/22 22:59 06:59 14:59 Intake Total 240 116.028 9331.747 Output Total 1150 520 Balance -910 999.635 0346.747 Intake: IV 1150 0.9 Bolus 1000 0.9 NACL 150 Intake, IV Titration 266.769 603.747 Amount Amiodarone 360 mg In 176.109 Dextrose 5% in Water 200 ml @ 1 MG/MIN 33.333 mls/ hr IV .Q6H [facility] Rx#: [id number] Diltiazem 125 mg In 99.499 5.333 Sodium Chloride 0.9% 100 ml @ 10 MG/HR 10 mls/hr IV .[id number] [facility] Rx#: [id number] Heparin Sod,Pork in 0.45% 80.38 43.784 NaCl 25,000 unit In 0.45 % NaCl 1 250ml.bag @ 12 UNITS/KG/HR 8.981 mls/hr IV .Q24H [facility] Rx#: [id number] Norepinephrine 4 mg In 86.890 378.521 Sodium Chloride 0.9% 250 ml @ 0.03 MCG/KG/MIN 7. 315 mls/hr IV .Q24H [facility] Rx#:[id number] Oral 240 Blood Product 930 Rc As-1 Unit 310 [id number] Rc As-1 Unit 310 [id number] Rc As-1 Unit 310 [id number] Output: Urine 1150 520 Other: Voiding Method Urinal # Voids 1 0 # Bowel Movements 1 Weight 64 kg 75.7 kg ABP, PAP, CO, CI - Last 8 Hours Arterial Blood Pressure 125/53 Arterial Blood Pressure 120/49 Arterial Blood Pressure 118/45 Arterial Blood Pressure 118/48 Arterial Blood Pressure 194/192 Arterial Blood Pressure 69/69 Arterial Blood Pressure 113/46 Arterial Blood Pressure 106/40 Acutely ill-appearing, confused, currently on 3 L. HEENT examination is grossly unremarkable. Neck supple. Full range of motion. No adenopathy thyromegaly or neck vein distention. Cardiovascular examination reveals regular rhythm rate. S1-S2 normal. No S3 or S4. No discernible murmur noted. Heart sounds distant. Heart rate 75 bpm. Lungs reveal scattered bilateral rhonchi. No wheezes. No crackles. Breath sounds equal bilaterally. Abdomen soft, without bowel sounds. No masses. Extremities are intact. No cyanosis or clubbing. Trace edema noted. Skin is without rash or lesion. Neurologic examination reveals the patient to be somewhat lethargic, and very confused. Results - Laboratory Findings CBC and BMP: 12/01/22 06:56 12/01/22 06:56 PT/INR, D-dimer PT 13.6 sec (9.0-12.0) H 12/01/22 06:56 INR 1.3 (<1.2) H 12/01/22 06:56 Abnormal lab findings: Abnormal Labs 11/30/22 11/30/22 11/30/22 10:17 11:00 11:00 RBC 3.68 L Hgb 11.5 L Hct 35.0 L Lymphocytes # 0.2 L PT INR APTT Sodium 128 L BUN 56 H Creatinine Glucose 181 H POC Glucose (mg/dL) 180 H Calcium Troponin I Total Protein Albumin Crossmatch 11/30/22 11/30/22 11/30/22 16:45 19:55 21:15 RBC Hgb Hct Lymphocytes # PT INR APTT 112.8 H* Sodium BUN Creatinine Glucose POC Glucose (mg/dL) 185 H 243 H Calcium Troponin I Total Protein Albumin Crossmatch 11/30/22 12/01/22 12/01/22 21:58 02:01 06:56 RBC 2.27 L Hgb 7.1 L D Hct 21.5 L Lymphocytes # 0.4 L PT INR APTT Sodium BUN Creatinine Glucose POC Glucose (mg/dL) 121 H 124 H Calcium Troponin I Total Protein Albumin Crossmatch 12/01/22 12/01/22 12/01/22 06:56 06:56 06:56 RBC Hgb Hct Lymphocytes # PT 13.6 H INR 1.3 H APTT 86.5 H Sodium 127 L BUN 89 H Creatinine 1.26 H Glucose 181 H POC Glucose (mg/dL) Calcium 8.2 L Troponin I 0.115 H* Total Protein 4.5 L Albumin 2.4 L Crossmatch 12/01/22 12/01/22 12/01/22 07:15 08:30 09:35 RBC Hgb Hct Lymphocytes # PT INR APTT Sodium BUN Creatinine Glucose POC Glucose (mg/dL) 217 H Calcium Troponin I Total Protein Albumin Crossmatch See Detail See Detail - Diagnostic Findings Chest x-ray: image reviewed Assessment and Plan Assessment: Acute gastrointestinal bleed, with a 4 g drop in hemoglobin. Right-sided pleural effusion/consolidation. Atrial fibrillation with RVR. Hypertension, requiring fluids and norepinephrine. History of hypertension. History of diabetes mellitus. History of hyperlipidemia. History of hypothyroidism. Prior history of pericardial effusion. Prior history of tobacco use. Plan: Plan dated 12/01/2022. The patient is currently receiving blood transfusions. Also, the patient had an arterial line placed and a central line placed. The patient is currently on norepinephrine at 30 mcg/m, and amiodarone at 1 mg/m. His hemoglobin dropped from 11.5 to 7.1. I've asked for a TSH and a stat cortisol level. Additional recommendations and suggestions are forthcoming. Prognosis is certainly guarded. We will continue to follow the patient and make recommendations along the way. Time with Patient: Greater than 30
[2022-12-01 13:40] LABS: Glucose,Whole Blood 234 mg/dL (70-110)
[2022-12-01 13:49] LABS: Basophils % (A) 0 %; Eosinophils % (A) 0 %; HCT 26.7 % (39.0-53.0); Lymphocytes # (A) 0.2 k/uL (1.0-4.8); Lymphocytes % (A) 2 %; MCH 29.5 pg (25.0-35.0); MCHC 33.5 g/dL (31.0-37.0); Mean Platelet Volume 9.5; Monocytes # (A) 0.9 k/uL (0-1.0); Monocytes % (A) 8 %; Neutrophils # (A) 9.8 k/uL (1.3-7.7); Neutrophils % (A) 88 %; Platelet Count 134 k/uL (150-450); RBC 3.04 m/uL (4.30-5.90); RDW 15.2 % (11.5-15.5); WBC 11.1 k/uL (3.8-10.6)
[2022-12-01 13:57] LABS: MCV 87.9 fL (80.0-100.0)
--- NOTE | 2022-12-01 14:19 | P.GSCN ---
History of Present Illness Consult date: 12/01/22 History of present illness: CHIEF COMPLAINT: GI bleed HISTORY OF PRESENT ILLNESS: This is a 82-year-old male who presented to the hospital with weakness and shortness of breath. Patient was found to have atrial fibrillation with rapid ventricular response and CHF exacerbation. Patient was started on IV heparin. Patient was admitted to the cardiac floor. He became hypotensive and tachycardic. He was having maroon stools. IV heparin was discontinued. He was transferred to the ICU. He had a drop in his hemoglobin from 11.5-7.1. He has received a total of 3 units of packed red blood cells. He did receive 1 L IV fluid plus. Per ICU nurse stools are becomi ng darker and her last maroon in color. Patient is on Levophed. Surgical service consulted in regards to GI bleed. Patient seen and examined with Dr. borja PAST MEDICAL HISTORY: See below PAST SURGICAL HISTORY: See below MEDICATIONS: See below ALLERGIES: See below SOCIAL HISTORY: No illicit drug use. REVIEW OF SYSTEMS: CONSTITUTIONAL: Denies fever or chills. HEENT: Denies blurred vision, vision changes, or eye pain. Denies hemoptysis CARDIOVASCULAR: Denies chest pain or pressure. RESPIRATORY: No shortness of breath. GASTROINTESTINAL: See HPI for pertinent findings HEMATOLOGIC: Denies bleeding disorders. GENITOURINARY: Denies any blood in urine or increased urinary frequency. SKIN: Denies pruitis. Denies rash. PHYSICAL EXAM: VITAL SIGNS: Reviewed GENERAL: Well-developed in no acute distress. HEENT: No sclera icterus. Extraocular movements grossly intact. Moist buccal mucosa. Head is atraumatic, normocephalic. No nasal drainage. ABDOMEN: Soft. Nondistended. Nondistended NEUROLOGIC: Lethargic LABORATORY DATA: WBC is 11.1 hemoglobin 11.5 down to 7.1. After blood transfusion hemoglobin is at 9.0 INR 1.3 sodium is 127 potassium 4.6 creatinine is 1.26 Troponin 0.115 Influenza, RSV and COVID-19 not detected IMAGING: Chest x-ray increasing right-sided pleural effusion and consolidation. Correlate for increasing CHF and pulmonary edema versus pneumonia ASSESSMENT: 1. Acute GI bleed with 4 g drop in hemoglobin 2. Acute blood loss anemia secondary to GI bleed 3. A. fib with RVR had been on IV heparin 4. Hypotensive PLAN: -Patient may need endoscopies -Continue ICU management -Continue supportive care -No anticoagulation -Continue monitor hemoglobin -Continue monitoring for any signs or symptoms bleeding -Continue to transfuse as needed -Continue IV fluids Thank you for this consultation Physician Professional [employer] note has been reviewed by physician. Signing provider agrees with the documented findings, assessment, and plan of care. Past Medical History Past Medical History: Diabetes Mellitus, Hyperlipidemia, Hypertension, Thyroid Disorder Additional Past Medical History / Comment(s): pericardial effusion History of Any Multi-Drug Resistant Organisms: None Reported Past Surgical History: Hernia Repair Additional Past Surgical History / Comment(s): BILATERAL CATARACTS REMOVED SEP 2020 Past Anesthesia/Blood Transfusion Reactions: No Reported Reaction Past Psychological History: No Psychological Hx Reported Smoking Status: Former smoker Past Alcohol Use History: Rare Past Drug Use History: None Reported Additional Drug Use History / Comment(s): smoked a pipe - Past Family History Son(s) Family Medical History: Cancer Mother Additional Family Medical History / Comment(s): parkinsons and dementia Sister(s) Additional Family Medical History / Comment(s): passed in 2021 from "blood clots" Medications and Allergies Home Medications Medication Instructions Recorded Confirmed Type Pravastatin Sodium [Pravachol] 20 mg PO W/SUPPER 01/30/21 11/30/22 History metFORMIN HCL [Glucophage] 500 mg PO W/SUPPER 01/30/21 11/30/22 History Ipratropium [place] [Ipratropium 1 spr EA NOSTRIL DAILY 11/30/22 11/30/22 History [place] 0.03%] Levothyroxine Sodium [Synthroid] 50 mcg PO AC-BRKFST 11/30/22 11/30/22 History Metoprolol Tartrate [Lopressor] 25 mg PO BID-W/MEALS 11/30/22 11/30/22 History Pioglitazone [Actos] 45 mg PO W/SUPPER 11/30/22 11/30/22 History Repaglinide [Prandin] 0.5 mg PO W/SUPPER 11/30/22 11/30/22 History lisinopriL [Zestril] 20 mg PO DAILY 11/30/22 11/30/22 History Allergies Allergy/AdvReac Type Severity Reaction Status Date / Time Penicillins Allergy Rash/Hives Verified 11/30/22 11:52 all over body Surgical - Exam Vital Signs Temp Pulse Resp BP Pulse Ox 98 F 148 H 24 119/83 99 11/30/22 10:18 11/30/22 10:18 11/30/22 10:18 11/30/22 10:18 11/30/22 10:18 Results - Labs 12/01/22 13:44 12/01/22 06:56 Abnormal Lab Results - Last 24 Hours (Table) 11/30/22 11/30/22 11/30/22 Range/Units 16:45 19:55 21:15 RBC (4.30-5.90) m/uL Hgb (13.0-17.5) gm/dL Hct (39.0-53.0) % Lymphocytes # (1.0-4.8) k/uL PT (9.0-12.0) sec INR (<1.2) APTT 112.8 H* (22.0-30.0) sec Sodium (137-145) mmol/L BUN (9-20) mg/dL Creatinine (0.66-1.25) mg/dL Glucose (74-99) mg/dL POC Glucose (mg/dL) 185 H 243 H (70-110) mg/dL Calcium (8.4-10.2) mg/dL Troponin I (0.000-0.034) ng/mL Total Protein (6.3-8.2) g/dL Albumin (3.5-5.0) g/dL Crossmatch 11/30/22 12/01/22 12/01/22 Range/Units 21:58 02:01 06:56 RBC 2.27 L (4.30-5.90) m/uL Hgb 7.1 L D (13.0-17.5) gm/dL Hct 21.5 L (39.0-53.0) % Lymphocytes # 0.4 L (1.0-4.8) k/uL PT (9.0-12.0) sec INR (<1.2) APTT (22.0-30.0) sec Sodium (137-145) mmol/L BUN (9-20) mg/dL Creatinine (0.66-1.25) mg/dL Glucose (74-99) mg/dL POC Glucose (mg/dL) 121 H 124 H (70-110) mg/dL Calcium (8.4-10.2) mg/dL Troponin I (0.000-0.034) ng/mL Total Protein (6.3-8.2) g/dL Albumin (3.5-5.0) g/dL Crossmatch 12/01/22 12/01/22 12/01/22 Range/Units 06:56 06:56 06:56 RBC (4.30-5.90) m/uL Hgb (13.0-17.5) gm/dL Hct (39.0-53.0) % Lymphocytes # (1.0-4.8) k/uL PT 13.6 H (9.0-12.0) sec INR 1.3 H (<1.2) APTT 86.5 H (22.0-30.0) sec Sodium 127 L (137-145) mmol/L BUN 89 H (9-20) mg/dL Creatinine 1.26 H (0.66-1.25) mg/dL Glucose 181 H (74-99) mg/dL POC Glucose (mg/dL) (70-110) mg/dL Calcium 8.2 L (8.4-10.2) mg/dL Troponin I 0.115 H* (0.000-0.034) ng/mL Total Protein 4.5 L (6.3-8.2) g/dL Albumin 2.4 L (3.5-5.0) g/dL Crossmatch 12/01/22 12/01/22 12/01/22 Range/Units 07:15 08:30 09:35 RBC (4.30-5.90) m/uL Hgb (13.0-17.5) gm/dL Hct (39.0-53.0) % Lymphocytes # (1.0-4.8) k/uL PT (9.0-12.0) sec INR (<1.2) APTT (22.0-30.0) sec Sodium (137-145) mmol/L BUN (9-20) mg/dL Creatinine (0.66-1.25) mg/dL Glucose (74-99) mg/dL POC Glucose (mg/dL) 217 H (70-110) mg/dL Calcium (8.4-10.2) mg/dL Troponin I (0.000-0.034) ng/mL Total Protein (6.3-8.2) g/dL Albumin (3.5-5.0) g/dL Crossmatch See Detail See Detail Diabetes panel 12/01/22 Range/Units 06:56 Sodium 127 L (137-145) mmol/L Potassium 4.6 (3.5-5.1) mmol/L Chloride 100 (98-107) mmol/L Carbon Dioxide 23 (22-30) mmol/L BUN 89 H (9-20) mg/dL Creatinine 1.26 H (0.66-1.25) mg/dL Glucose 181 H (74-99) mg/dL Calcium 8.2 L (8.4-10.2) mg/dL AST 28 (17-59) U/L ALT 23 (4-49) U/L Alkaline Phosphatase 51 (38-126) U/L Total Protein 4.5 L (6.3-8.2) g/dL Albumin 2.4 L (3.5-5.0) g/dL Thyroid panel 12/01/22 Range/Units 06:56 TSH 3.370 (0.465-4.680) mIU/L Calcium panel 12/01/22 Range/Units 06:56 Calcium 8.2 L (8.4-10.2) mg/dL Albumin 2.4 L (3.5-5.0) g/dL Pituitary panel 12/01/22 12/01/22 Range/Units 06:56 06:56 Sodium 127 L (137-145) mmol/L Potassium 4.6 (3.5-5.1) mmol/L Chloride 100 (98-107) mmol/L Carbon Dioxide 23 (22-30) mmol/L BUN 89 H (9-20) mg/dL Creatinine 1.26 H (0.66-1.25) mg/dL Glucose 181 H (74-99) mg/dL Calcium 8.2 L (8.4-10.2) mg/dL TSH 3.370 (0.465-4.680) mIU/L Adrenal panel 12/01/22 Range/Units 06:56 Sodium 127 L (137-145) mmol/L Potassium 4.6 (3.5-5.1) mmol/L Chloride 100 (98-107) mmol/L Carbon Dioxide 23 (22-30) mmol/L BUN 89 H (9-20) mg/dL Creatinine 1.26 H (0.66-1.25) mg/dL Glucose 181 H (74-99) mg/dL Calcium 8.2 L (8.4-10.2) mg/dL Total Bilirubin 0.7 (0.2-1.3) mg/dL AST 28 (17-59) U/L ALT 23 (4-49) U/L Alkaline Phosphatase 51 (38-126) U/L Total Protein 4.5 L (6.3-8.2) g/dL Albumin 2.4 L (3.5-5.0) g/dL
[2022-12-01] MEDS: SODIUM CHLORIDE 0.9% 1,000 ML IV SCH (14:23)
[2022-12-01] MEDS ORDERED: Magnesium Replacement Protocol 1 EACH MISC MISCELLANE PRN (14:42)
[2022-12-01] MEDS ORDERED: CALCIUM GLUCONATE IN NACL 1 GM in SALINE 1 100ML.BAG IVPB ONE (14:42)
[2022-12-01] MEDS: NOREPINEPHRINE 8 MG in SODIUM CHLORIDE 0.9% 250 ML IV SCH ×2 (16:05→21:30)
[2022-12-01 17:20] LABS: Glucose,Whole Blood 323 mg/dL (70-110)
[2022-12-01] MEDS: MAGNESIUM SULFATE-D5W PMX 1 GM in DEXTROSE/WATER 1 100ML.BAG IVPB SCH ×2 (17:30→18:57)
[2022-12-01 19:42] LABS: Anisocytosis Slight; HCT 24.9 % (39.0-53.0); HGB 8.3 gm/dL (13.0-17.5); MCH 29.5 pg (25.0-35.0); MCHC 33.3 g/dL (31.0-37.0); MCV 88.7 fL (80.0-100.0); Mean Platelet Volume 9.7; Platelet Count 153 k/uL (150-450); RDW 16.3 % (11.5-15.5)
[2022-12-01 20:05] LABS: Glucose,Whole Blood 133 mg/dL (70-110)
[2022-12-01] MEDS: PANTOPRAZOLE 40 MG/10 ML VIAL IVP SCH (20:09)
[2022-12-02] MEDS: NOREPINEPHRINE 8 MG in SODIUM CHLORIDE 0.9% 250 ML IV SCH ×7 (00:36→21:15)
[2022-12-02 03:02] LABS: Anisocytosis Slight; HCT 25.4 % (39.0-53.0); HGB 7.9 gm/dL (13.0-17.5); MCH 29.5 pg (25.0-35.0); MCHC 31.2 g/dL (31.0-37.0); Mean Platelet Volume 8.9; Platelet Count 167 k/uL (150-450); Poikilocytosis Slight; RBC 2.69 m/uL (4.30-5.90); RDW 16.5 % (11.5-15.5); WBC 12.8 k/uL (3.8-10.6)
[2022-12-02 03:06] LABS: MCV 94.5 fL (80.0-100.0)
[2022-12-02] MEDS: SODIUM CHLORIDE 0.9% 1,000 ML IV SCH ×2 (04:07→16:55)
[2022-12-02 06:04] LABS: Glucose,Whole Blood 184 mg/dL (70-110)
[2022-12-02 06:24] LABS: Anisocytosis Slight; Basophils % (A) 0 %; Eosinophils % (A) 0 %; HCT 22.8 % (39.0-53.0); HGB 7.7 gm/dL (13.0-17.5); Lymphocytes # (A) 0.3 k/uL (1.0-4.8); Lymphocytes % (A) 2 %; MCH 30.3 pg (25.0-35.0); MCHC 33.8 g/dL (31.0-37.0); Mean Platelet Volume 8.4; Monocytes # (A) 0.7 k/uL (0-1.0); Monocytes % (A) 5 %; Neutrophils # (A) 11.7 k/uL (1.3-7.7); Neutrophils % (A) 90 %; Platelet Count 168 k/uL (150-450); Poikilocytosis Slight; RBC 2.55 m/uL (4.30-5.90); RDW 16.2 % (11.5-15.5)
[2022-12-02 06:29] LABS: MCV 89.4 fL (80.0-100.0)
[2022-12-02 07:01] LABS: Calcium 7.6 mg/dL (8.4-10.2); Magnesium 2.1 mg/dL (1.6-2.3); Potassium 4.8 mmol/L (3.5-5.1)
--- NOTE | 2022-12-02 07:07 | XR ---
EXAMINATION TYPE: XR chest 1V DATE OF EXAM: 12/02/2022 COMPARISON: 12/01/2022 HISTORY: CHF TECHNIQUE: Single frontal view of the chest is obtained. FINDINGS: No change position of the left-sided PICC line. No change moderate to large right pleural effusion and tiny left pleural effusion. No change in the moderate pulmonary vascular congestion IMPRESSION: Findings consistent with the provided history of CHF with no interval change.
--- NOTE | 2022-12-02 07:29 | P.PN ---
Subjective Progress Note Date: 12/02/22 Principal diagnosis: Gastrointestinal bleed The patient is an 82-year-old gentleman with a past medical history significant for diabetes and hypertension and dyslipidemia and history of atrial tachycardia. We asked to see the patient as a consult here in the intensive care unit for further evaluation of atrial fibrillation with RVR and also for further evaluation of shortness of breath. The patient was seen and evaluated at that site. He is somewhat poor historian. He was falling speed when he was talking to me. Apparently he presented for about a week history of progressive exertional dyspnea and progressive weakness and dizziness and lightheadedness but no presyncope or syncope and no symptoms of chest pain or chest discomfort. He was evaluated in the emergency department. The initial hemoglobin was around 11 but subsequently the second hemoglobin dropped to about 7. He was hypotensive requiring norepinephrine he continues to be on norepinephrine. Also he was found to be in atrial fibrillation with RVR and subsequently was started on Cardizem IV as well as amiodarone IV. No history of atrial fibrillation before. He is known to have atrial tachycardia. The last echo from 2020 revealed preserved biventricular systolic function with no significant valvular abnormalities. The patient did have a bowel movement when he was on the floor and that was normal subsequently a second bowel movement in the intensive care unit was bloody. I believe the whole clinical scenario the patient including his symptoms of dizziness lightheadedness and shortness of breath is consistent with gastrointestinal bleeding. Currently he is on heparin which we are going to stop. He still hypotensive requiring norepinephrine. Distal in atrial fibrillation with heart rate around 100. On examination he seems to be in mild heart failure predominantly right was bilateral lower extent is pitting edema noted and diminished breathing sounds bilaterally. The chest x-ray showed findings consistent with CHF. The NT proBNP was not checked. We are going to check that December [id number] The patient was seen and evaluated this morning. Unfortunately he continues to be unstable requiring norepinephrine. He still hypoxic requiring at least 3 L of oxygen. He is converted to normal sinus mechanism. He is in process to be seen by the general surgery service for possible upper or lower endoscopy. On examination he is congested was diminished breathing sounds bilaterally and bilateral lower extremities edema. The chest x-ray showed findings consistent with CHF. Objective - Vital Signs Vital signs: Vital Signs Temp 99 F 12/02/22 00:00 Pulse 90 12/02/22 04:00 Resp 33 H 12/02/22 02:00 BP 106/51 12/02/22 04:00 Pulse Ox 95 12/02/22 04:00 FiO2 Intake & Output 12/01/22 12/02/22 12/02/22 18:59 06:59 18:59 Intake Total 3687.747 1665.358 Output Total 835 920 Balance 2852.747 745.358 Weight 75.7 kg 78.6 kg Intake: IV 1900 900 0.9 Bolus 1000 0.9 NACL 600 900 calcium gluconate 100 magnesium 200 Intake, IV Titration 857.747 765.358 Amount Amiodarone 360 mg In 176.109 Dextrose 5% in Water 200 ml @ 1 MG/MIN 33.333 mls/ hr IV .Q6H [facility] Rx#: [id number] Diltiazem 125 mg In 5.333 Sodium Chloride 0.9% 100 ml @ 10 MG/HR 10 mls/hr IV .[id number] [facility] Rx#: [id number] Heparin Sod,Pork in 0.45% 43.784 NaCl 25,000 unit In 0.45 % NaCl 1 250ml.bag @ 12 UNITS/KG/HR 8.981 mls/hr IV .Q24H [facility] Rx#: [id number] Norepinephrine 4 mg In 632.521 Sodium Chloride 0.9% 250 ml @ 0.03 MCG/KG/MIN 7. 315 mls/hr IV .Q24H [facility] Rx#:[id number] Norepinephrine 8 mg In 765.358 Sodium Chloride 0.9% 250 ml @ 0.03 MCG/KG/MIN 4. 394 mls/hr IV .Q24H [facility] Rx#:[id number] Blood Product 930 Rc As-1 Unit 310 [id number] Rc As-1 Unit 310 [id number] Rc As-1 Unit 310 [id number] Output: Urine 785 920 Emesis 50 Other: Voiding Method Indwelling Catheter Indwelling Catheter # Bowel Movements 1 1 ABP, PAP, CO, CI - Last Documented Arterial Blood Pressure 125/41 - Labs CBC & Chem 7: 12/02/22 06:00 12/02/22 06:00 Labs: Abnormal Lab Results - Last 24 Hours (Table) 12/01/22 12/01/22 12/01/22 Range/Units 06:56 06:56 06:56 WBC (3.8-10.6) k/uL RBC 2.27 L (4.30-5.90) m/uL Hgb 7.1 L D (13.0-17.5) gm/dL Hct 21.5 L (39.0-53.0) % RDW (11.5-15.5) % Plt Count (150-450) k/uL Neutrophils # (1.3-7.7) k/uL Lymphocytes # 0.4 L (1.0-4.8) k/uL PT 13.6 H (9.0-12.0) sec INR 1.3 H (<1.2) APTT 86.5 H (22.0-30.0) sec Sodium 127 L (137-145) mmol/L Chloride (98-107) mmol/L Carbon Dioxide (22-30) mmol/L BUN 89 H (9-20) mg/dL Creatinine 1.26 H (0.66-1.25) mg/dL Glucose 181 H (74-99) mg/dL POC Glucose (mg/dL) (70-110) mg/dL Calcium 8.2 L (8.4-10.2) mg/dL Troponin I (0.000-0.034) ng/mL Total Protein 4.5 L (6.3-8.2) g/dL Albumin 2.4 L (3.5-5.0) g/dL Procalcitonin (0.02-0.09) ng/mL Crossmatch 12/01/22 12/01/22 12/01/22 Range/Units 06:56 08:30 09:35 WBC (3.8-10.6) k/uL RBC (4.30-5.90) m/uL Hgb (13.0-17.5) gm/dL Hct (39.0-53.0) % RDW (11.5-15.5) % Plt Count (150-450) k/uL Neutrophils # (1.3-7.7) k/uL Lymphocytes # (1.0-4.8) k/uL PT (9.0-12.0) sec INR (<1.2) APTT (22.0-30.0) sec Sodium (137-145) mmol/L Chloride (98-107) mmol/L Carbon Dioxide (22-30) mmol/L BUN (9-20) mg/dL Creatinine (0.66-1.25) mg/dL Glucose (74-99) mg/dL POC Glucose (mg/dL) (70-110) mg/dL Calcium (8.4-10.2) mg/dL Troponin I 0.115 H* (0.000-0.034) ng/mL Total Protein (6.3-8.2) g/dL Albumin (3.5-5.0) g/dL Procalcitonin (0.02-0.09) ng/mL Crossmatch See Detail See Detail 12/01/22 12/01/22 12/01/22 Range/Units 13:36 13:44 13:44 WBC 11.1 H (3.8-10.6) k/uL RBC 3.04 L (4.30-5.90) m/uL Hgb 9.0 L D (13.0-17.5) gm/dL Hct 26.7 L (39.0-53.0) % RDW (11.5-15.5) % Plt Count 134 L (150-450) k/uL Neutrophils # 9.8 H (1.3-7.7) k/uL Lymphocytes # 0.2 L (1.0-4.8) k/uL PT (9.0-12.0) sec INR (<1.2) APTT (22.0-30.0) sec Sodium (137-145) mmol/L Chloride (98-107) mmol/L Carbon Dioxide (22-30) mmol/L BUN (9-20) mg/dL Creatinine (0.66-1.25) mg/dL Glucose (74-99) mg/dL POC Glucose (mg/dL) 234 H (70-110) mg/dL Calcium (8.4-10.2) mg/dL Troponin I (0.000-0.034) ng/mL Total Protein (6.3-8.2) g/dL Albumin (3.5-5.0) g/dL Procalcitonin 0.35 H (0.02-0.09) ng/mL Crossmatch 01/12/01/22 12/01/22 Range/Units 17:19 19:39 20:03 WBC 11.0 H (3.8-10.6) k/uL RBC 2.80 L (4.30-5.90) m/uL Hgb 8.3 L (13.0-17.5) gm/dL Hct 24.9 L (39.0-53.0) % RDW 16.3 H (11.5-15.5) % Plt Count (150-450) k/uL Neutrophils # (1.3-7.7) k/uL Lymphocytes # (1.0-4.8) k/uL PT (9.0-12.0) sec INR (<1.2) APTT (22.0-30.0) sec Sodium (137-145) mmol/L Chloride (98-107) mmol/L Carbon Dioxide (22-30) mmol/L BUN (9-20) mg/dL Creatinine (0.66-1.25) mg/dL Glucose (74-99) mg/dL POC Glucose (mg/dL) 323 H 133 H (70-110) mg/dL Calcium (8.4-10.2) mg/dL Troponin I (0.000-0.034) ng/mL Total Protein (6.3-8.2) g/dL Albumin (3.5-5.0) g/dL Procalcitonin (0.02-0.09) ng/mL Crossmatch 12/02/22 12/02/22 12/02/22 Range/Units 01:49 06:00 06:00 WBC 12.8 H 13.0 H (3.8-10.6) k/uL RBC 2.69 L 2.55 L (4.30-5.90) m/uL Hgb 7.9 L 7.7 L (13.0-17.5) gm/dL Hct 25.4 L 22.8 L (39.0-53.0) % RDW 16.5 H 16.2 H (11.5-15.5) % Plt Count (150-450) k/uL Neutrophils # 11.7 H (1.3-7.7) k/uL Lymphocytes # 0.3 L (1.0-4.8) k/uL PT (9.0-12.0) sec INR (<1.2) APTT (22.0-30.0) sec Sodium 132 L (137-145) mmol/L Chloride 109 H (98-107) mmol/L Carbon Dioxide 20 L (22-30) mmol/L BUN 94 H (9-20) mg/dL Creatinine 1.61 H (0.66-1.25) mg/dL Glucose 168 H (74-99) mg/dL POC Glucose (mg/dL) (70-110) mg/dL Calcium 7.6 L (8.4-10.2) mg/dL Troponin I (0.000-0.034) ng/mL Total Protein (6.3-8.2) g/dL Albumin (3.5-5.0) g/dL Procalcitonin (0.02-0.09) ng/mL Crossmatch 12/02/22 Range/Units 06:03 WBC (3.8-10.6) k/uL RBC (4.30-5.90) m/uL Hgb (13.0-17.5) gm/dL Hct (39.0-53.0) % RDW (11.5-15.5) % Plt Count (150-450) k/uL Neutrophils # (1.3-7.7) k/uL Lymphocytes # (1.0-4.8) k/uL PT (9.0-12.0) sec INR (<1.2) APTT (22.0-30.0) sec Sodium (137-145) mmol/L Chloride (98-107) mmol/L Carbon Dioxide (22-30) mmol/L BUN (9-20) mg/dL Creatinine (0.66-1.25) mg/dL Glucose (74-99) mg/dL POC Glucose (mg/dL) 184 H (70-110) mg/dL Calcium (8.4-10.2) mg/dL Troponin I (0.000-0.034) ng/mL Total Protein (6.3-8.2) g/dL Albumin (3.5-5.0) g/dL Procalcitonin (0.02-0.09) ng/mL Crossmatch Assessment and Plan Assessment: Assessment Gastrointestinal bleeding Blood loss anemia secondary to gastrointestinal bleeding Hypotension requiring norepinephrine likely secondary to GI bleeding/hypovolemia Shortness of breath Heart failure predominantly right more than left Atrial fibrillation with RVR, this is a new diagnosis the patient Plan Continue amiodarone IV at this point. The patient is nothing by mouth Follow-up on the echocardiogram Give the patient 20 mg of Lasix IV once in the light of congestion/lower extremities edema/hypoxia and finding of CHF on chest x-ray Continue monitor the kidney function and electrolytes Continue holding any anticoagulation Follow-up with the patient
[2022-12-02] MEDS: AMIODARONE 450 MG in DEXTROSE 5% IN WATER 250 ML IV SCH ×4 (07:57→16:56)
[2022-12-02] MEDS: PANTOPRAZOLE 40 MG/10 ML VIAL IVP SCH ×2 (08:15→20:21)
--- NOTE | 2022-12-02 08:24 | CA ---
Transthoracic Echo Report Name: Kalen Birmingham Age: 82 Gender: M : 1940 Exam Date: 12/01/2022 14:17 Exam Location: [facility] Ht (in): 71 Wt (lb): 141 Ordering Physician: Joseluis Clay MD Attending/Referring Phys: [employer]itor Mecca Pelayo RDCS Procedure CPT: Indications: A flutter, possible congestive heart failure Cardiac Hx: Technical Quality: Fair Contrast 1: Total Dose (mL): Contrast 2: Total Dose (mL): MEASUREMENTS (Male / Female) Normal Values 2D ECHO LV Diastolic Diameter PLAX 2.8 cm 4.2 - 5.9 / 3.9 - 5.3 cm LV Systolic Diameter PLAX 1.6 cm IVS Diastolic Thickness 1.2 cm 0.6 - 1.0 / 0.6 - 0.9 cm LVPW Diastolic Thickness 1.3 cm 0.6 - 1.0 / 0.6 - 0.9 cm LV Relative Wall Thickness 0.9 RV Internal Dim ED PLAX 4.2 cm LA Volume 59.4 cm??? 18 - 58 / 22 - 52 cm??? M-MODE Aortic Root Diameter MM 3.6 cm LA Systolic Diameter MM 4.0 cm LA Ao Ratio MM 1.1 AV Cusp Separation MM 1.7 cm DOPPLER AV Peak Velocity 133.9 cm/s AV Peak Gradient 7.2 mmHg AI Peak Velocity 380.3 cm/s AI Peak Gradient 57.8 mmHg AI Pressure Half Time 404.8 ms LVOT Peak Velocity 90.4 cm/s LVOT Peak Gradient 3.3 mmHg MV Area PHT 6.9 cm??? Mitral E Point Velocity 103.6 cm/s Mitral A Point Velocity 48.5 cm/s Mitral E to A Ratio 2.1 MV Deceleration Time 109.6 ms MV E' Velocity 7.1 cm/s Mitral E to MV E' Ratio 14.7 TR Peak Velocity 300.1 cm/s TR Peak Gradient 36.0 mmHg Right Ventricular Systolic Press 38.4 mmHg FINDINGS Left Ventricle Mildly increased left ventricular wall thickness. Normal left ventricular systolic function with no obvious regional wall motion abnormalities. Left ventricular ejection fraction is estimated at 55 %. Right Ventricle Moderate right ventricular dilatation. Mild pulmonary hypertension. Right Atrium Moderate right atrial dilatation. Left Atrium Mildly increased left atrial volume. Mitral Valve Mitral valve thickened. Mild mitral annular calcification. Mild mitral regurgitation. Aortic Valve Trileaflet aortic valve. Aortic valve sclerosis. Trace aortic regurgitation. Tricuspid Valve Structurally normal tricuspid valve. Mild tricuspid regurgitation. Pulmonic Valve Trace pulmonic regurgitation. Pericardium No pericardial effusion. Aorta Normal size aortic root and proximal ascending aorta. CONCLUSIONS Normal left ventricular dimension and systolic function. Mild LVH Dilated right ventricle with normal function. Mild pulmonary hypertension Previewed by: Dr. Param Sanchez MD (Electronically Signed) Final Date: 02 December 2022 08:24
[2022-12-02] MEDS ORDERED: LORazepam 2 MG/ML INJ IV PRN (09:04)
[2022-12-02] MEDS: INSULIN ASPART (NovoLOG) 100 UNIT/ML VIAL SQ SCH ×4 (09:09→20:22)
[2022-12-02] MEDS: IPRATROPIUM BROMIDE 0.06% NASAL SPRAY (15 ML) EA NOSTRIL SCH (10:14)
--- NOTE | 2022-12-02 10:22 | P.PN ---
Subjective Patient is seen for follow-up for acute kidney injury, prerenal associated with hypovolemia and hypotension and acute anemia. Patient has ongoing GI bleed. He has received 3 units packed RBCs. Currently maintained on saline at 75 mL an hour. Levo fed is at about 0.3 mcg/kg Black tarry stools noted this morning and maroon-colored stools last night. Hemoglobin at 7.7 g/dL. Urine output at about 20-40 mL an hour. Serum creatinine increased to 1.6 from 0.9 on admission. Objective - Vital Signs Vital signs: Vital Signs Temp 99 F 12/02/22 00:00 Pulse 107 H 12/02/22 07:00 Resp 24 12/02/22 07:00 BP 120/41 12/02/22 07:00 Pulse Ox 96 12/02/22 07:00 FiO2 Intake & Output 12/01/22 12/02/22 12/02/22 18:59 06:59 18:59 Intake Total 3687.747 1915.358 454.528 Output Total 835 920 265 Balance 2852.747 995.358 189.528 Weight 75.7 kg 78.6 kg 76.8 kg Intake: IV 1900 900 84 0.9 Bolus 1000 0.9 NACL 600 900 84 calcium gluconate 100 magnesium 200 Intake, IV Titration 803.619 0879.358 370.528 Amount Amiodarone 360 mg In 176.109 Dextrose 5% in Water 200 ml @ 1 MG/MIN 33.333 mls/ hr IV .Q6H [facility] Rx#: [id number] Amiodarone 450 mg In 250 Dextrose 5% in Water 250 ml @ 0.5 MG/MIN 16.667 mls/hr IV .Q15H [facility] Rx#: [id number] Diltiazem 125 mg In 5.333 Sodium Chloride 0.9% 100 ml @ 10 MG/HR 10 mls/hr IV .[id number] [facility] Rx#: [id number] Heparin Sod,Pork in 0.45% 43.784 NaCl 25,000 unit In 0.45 % NaCl 1 250ml.bag @ 12 UNITS/KG/HR 8.981 mls/hr IV .Q24H [facility] Rx#: [id number] Norepinephrine 4 mg In 632.521 Sodium Chloride 0.9% 250 ml @ 0.03 MCG/KG/MIN 7. 315 mls/hr IV .Q24H [facility] Rx#:[id number] Norepinephrine 8 mg In 765.358 145.528 Sodium Chloride 0.9% 250 ml @ 0.03 MCG/KG/MIN 4. 394 mls/hr IV .Q24H [facility] Rx#:[id number] Sodium Chloride 0.9% 1, 225 000 ml @ 75 mls/hr IV . [id number] [facility] Rx#:[id number] Blood Product 930 Rc As-1 Unit 310 [id number] Rc As-1 Unit 310 [id number] Rc As-1 Unit 310 [id number] Output: Urine 785 920 265 Emesis 50 Other: Voiding Method Indwelling Catheter Indwelling Catheter Indwelling Catheter # Bowel Movements 1 1 1 ABP, PAP, CO, CI - Last Documented Arterial Blood Pressure 125/41 - Exam Patient is sleeping but arousable. He has been combative currently with a sitter. Examination of the heart S1 and S2 Examination of the lungs bilateral breath sounds are heard Abdomen is soft nontender Examination lower extremity shows edema 2+ bilaterally LOG SKIDDER exam shows patient has been moving all 4 extremities. He has been confused. - Labs CBC & Chem 7: 12/02/22 06:00 12/02/22 06:00 Labs: Abnormal Lab Results - Last 24 Hours (Table) 12/01/22 12/01/22 12/01/22 Range/Units 08:30 09:35 13:36 WBC (3.8-10.6) k/uL RBC (4.30-5.90) m/uL Hgb (13.0-17.5) gm/dL Hct (39.0-53.0) % RDW (11.5-15.5) % Plt Count (150-450) k/uL Neutrophils # (1.3-7.7) k/uL Lymphocytes # (1.0-4.8) k/uL Sodium (137-145) mmol/L Chloride (98-107) mmol/L Carbon Dioxide (22-30) mmol/L BUN (9-20) mg/dL Creatinine (0.66-1.25) mg/dL Glucose (74-99) mg/dL POC Glucose (mg/dL) 234 H (70-110) mg/dL Calcium (8.4-10.2) mg/dL Procalcitonin (0.02-0.09) ng/mL Crossmatch See Detail See Detail 12/01/22 12/01/22 12/01/22 Range/Units 13:44 13:44 17:19 WBC 11.1 H (3.8-10.6) k/uL RBC 3.04 L (4.30-5.90) m/uL Hgb 9.0 L D (13.0-17.5) gm/dL Hct 26.7 L (39.0-53.0) % RDW (11.5-15.5) % Plt Count 134 L (150-450) k/uL Neutrophils # 9.8 H (1.3-7.7) k/uL Lymphocytes # 0.2 L (1.0-4.8) k/uL Sodium (137-145) mmol/L Chloride (98-107) mmol/L Carbon Dioxide (22-30) mmol/L BUN (9-20) mg/dL Creatinine (0.66-1.25) mg/dL Glucose (74-99) mg/dL POC Glucose (mg/dL) 323 H (70-110) mg/dL Calcium (8.4-10.2) mg/dL Procalcitonin 0.35 H (0.02-0.09) ng/mL Crossmatch 12/01/22 12/01/22 12/02/22 Range/Units 19:39 20:03 01:49 WBC 11.0 H 12.8 H (3.8-10.6) k/uL RBC 2.80 L 2.69 L (4.30-5.90) m/uL Hgb 8.3 L 7.9 L (13.0-17.5) gm/dL Hct 24.9 L 25.4 L (39.0-53.0) % RDW 16.3 H 16.5 H (11.5-15.5) % Plt Count (150-450) k/uL Neutrophils # (1.3-7.7) k/uL Lymphocytes # (1.0-4.8) k/uL Sodium (137-145) mmol/L Chloride (98-107) mmol/L Carbon Dioxide (22-30) mmol/L BUN (9-20) mg/dL Creatinine (0.66-1.25) mg/dL Glucose (74-99) mg/dL POC Glucose (mg/dL) 133 H (70-110) mg/dL Calcium (8.4-10.2) mg/dL Procalcitonin (0.02-0.09) ng/mL Crossmatch 12/02/22 12/02/22 12/02/22 Range/Units 06:00 06:00 06:03 WBC 13.0 H (3.8-10.6) k/uL RBC 2.55 L (4.30-5.90) m/uL Hgb 7.7 L (13.0-17.5) gm/dL Hct 22.8 L (39.0-53.0) % RDW 16.2 H (11.5-15.5) % Plt Count (150-450) k/uL Neutrophils # 11.7 H (1.3-7.7) k/uL Lymphocytes # 0.3 L (1.0-4.8) k/uL Sodium 132 L (137-145) mmol/L Chloride 109 H (98-107) mmol/L Carbon Dioxide 20 L (22-30) mmol/L BUN 94 H (9-20) mg/dL Creatinine 1.61 H (0.66-1.25) mg/dL Glucose 168 H (74-99) mg/dL POC Glucose (mg/dL) 184 H (70-110) mg/dL Calcium 7.6 L (8.4-10.2) mg/dL Procalcitonin (0.02-0.09) ng/mL Crossmatch Assessment and Plan Assessment: 1. Acute kidney injury secondary to hypotension and hypovolemia currently oliguric. Check UA 2. Hyponatremia, hypovolemic from severe anemia and GI bleed. Improved with normal saline 3. Acute GI bleed 4. Acute blood loss anemia from GI bleed 5. 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 A. fib with RVR, new onset Plan: Continue IV fluids Check ultrasound of the kidneys Check urine analysis Patient is fairly comfortable from respiratory standpoint. I believe he can tolerate fluids. It is mostly right-sided heart failure. Echocardiogram in January 2022 showed EF of 60-65% with normal left atrium. Repeat echo still shows EF at 55%
[2022-12-02] MEDS ORDERED: AMIODARONE 450 MG in DEXTROSE 5% IN WATER 250 ML IV SCH ×2 (10:45)
[2022-12-02] MEDS ORDERED: DEXTROSE 5% IN WATER 100 ML with AMIODARONE 150 MG IV ONE (10:52)
[2022-12-02] MEDS ORDERED: AMIODARONE 360 MG in DEXTROSE 5% IN WATER 200 ML IV ONE ×2 (10:53)
[2022-12-02 11:21] LABS: Glucose,Whole Blood 206 mg/dL (70-110)
--- NOTE | 2022-12-02 11:46 | P.PN ---
Subjective Progress Note Date: 12/02/22 82-year-old male who was admitted in the emergency department, on November 30, for shortness of breath. He apparently came they're presenting with a couple weeks worth of increasing and progressive shortness of breath. His heart rate was rather high, up to 150 bpm. The patient also had a mild nonproductive cough, and some nasal congestion. The patient was admitted to the general medical floor, and sometime last night, became hypotensive, and the corporate traffic manager wanted him to be transferred down to the intensive care unit, treatment with norepinephrine. I'm seeing him for the first time this morning, in room 267. The patient does have a history of hypertension, diabetes, hyperlipidemia, and hypothyroidism. In addition, the patient developed a gastrointestinal bleed this morning, both with maroon stools, and vomiting up blood. His hemoglobin dropped from 11.5, down to 7.1. When seen this morning, the patient was on 3 L of oxygen, norepinephrine at 30 mcg/m, and amiodarone at 1 mg/m. The patient had blood work ordered as well. I asked for a stat cortisol level and a TSH. Also, we placed an arterial line, and a central line in this patient, for better monitoring and management. White count 6.5, hemoglobin 7.1, hematocrit 21.5, and platelet count was normal. PT 13.6 with an INR 1.3. Sodium 127, potassium 4.6, chlorides 100, CO2 23, BUN 89, and creatinine 1.26. Troponin was 0.115. TSH was normal. Cortisol level was 20. Chest x-ray showed a properly placed central line, and increasing right-sided pleural effusion with consolidation. The patient is seen today 12/02/2022 in follow-up in the intensive care unit. He is currently resting in bed. Awake and alert. He has had some issues with agitation and confusion at times. A safety deposit boxes custodian is at the bedside. He is sti ll requiring some norepinephrine at 40 mcg/m. He has normal saline at 75 ML's per hour. He is on amiodarone drip at 0.5 mg/m. He is maintaining O2 saturations in the 90s on 4 L/m per nasal cannula. His most recent hemoglobin was 7.7. He has received 3 units of packed red blood cells so far this admission. Chest x-ray reveals left-sided triple lumen catheter in place. There is moderate to large right pleural effusion and tiny left pleural effusion. He is currently in a +3.8 L balance. White count 13.0. Hemoglobin 7.7. Platelets 168. Sodium 132. Potassium 4.8. Chloride 109. Bicarb 20. BUN 94. Creatinine 1.61. Glucose 168. BMP lung 4250. Cortisol level 20. He is continued on Protonix for GI prophylaxis. He was reported to have one dark tarry stool early this morning. Objective - Vital Signs Vital signs: Vital Signs Temp 99 F 12/02/22 00:00 Pulse 107 H 12/02/22 07:00 Resp 24 12/02/22 07:00 BP 120/41 12/02/22 07:00 Pulse Ox 96 12/02/22 07:00 FiO2 Intake & Output 12/01/22 12/02/22 12/02/22 18:59 06:59 18:59 Intake Total 3687.747 1915.358 706.280 Output Total 835 920 315 Balance 2852.747 995.358 391.280 Weight 75.7 kg 78.6 kg 76.8 kg Intake: IV 1900 900 87 0.9 Bolus 1000 0.9 NACL 600 900 87 calcium gluconate 100 magnesium 200 Intake, IV Titration 215.903 5221.358 619.280 Amount Amiodarone 360 mg In 176.109 Dextrose 5% in Water 200 ml @ 1 MG/MIN 33.333 mls/ hr IV .Q6H [facility] Rx#: [id number] Amiodarone 450 mg In 250 Dextrose 5% in Water 250 ml @ 0.5 MG/MIN 16.667 mls/hr IV .Q15H [facility] Rx#: [id number] Dextrose 5% in Water 100 100 ml @ 618 mls/hr IV .Q10M [facility] with Amiodarone 150 mg Rx#:[id number] Diltiazem 125 mg In 5.333 Sodium Chloride 0.9% 100 ml @ 10 MG/HR 10 mls/hr IV .[id number] [facility] Rx#: [id number] Heparin Sod,Pork in 0.45% 43.784 NaCl 25,000 unit In 0.45 % NaCl 1 250ml.bag @ 12 UNITS/KG/HR 8.981 mls/hr IV .Q24H [facility] Rx#: [id number] Norepinephrine 4 mg In 632.521 Sodium Chloride 0.9% 250 ml @ 0.03 MCG/KG/MIN 7. 315 mls/hr IV .Q24H [facility] Rx#:[id number] Norepinephrine 8 mg In 765.358 219.280 Sodium Chloride 0.9% 250 ml @ 0.03 MCG/KG/MIN 4. 394 mls/hr IV .Q24H [facility] Rx#:[id number] Sodium Chloride 0.9% 1, 300 000 ml @ 75 mls/hr IV . [id number] [facility] Rx#:[id number] Blood Product 930 Rc As-1 Unit 310 [id number] Rc As-1 Unit 310 [id number] Rc As-1 Unit 310 [id number] Output: Urine 785 920 315 Emesis 50 Other: Voiding Method Indwelling Catheter Indwelling Catheter Indwelling Catheter # Bowel Movements 1 1 1 ABP, PAP, CO, CI - Last Documented Arterial Blood Pressure 125/41 - Exam GENERAL EXAM: Alert, pleasantly confused 82-year-old male patient on 4 L nasal cannula, comfortable in no apparent distress. HEAD: Normocephalic. EYES: Normal reaction of pupils, equal size. NOSE: Clear with pink turbinates. THROAT: No erythema or exudates. NECK: No masses, no JVD. CHEST: No chest wall deformity. LUNGS: Equal air entry with crackles in the posterior bases right greater than left. CVS: S1 and S2 normal with no audible murmur, regular rhythm. ABDOMEN: No hepatosplenomegaly, normal bowel sounds, no guarding or rigidity. SPINE: No scoliosis or deformity SKIN: No rashes CENTRAL NERVOUS SYSTEM: No focal deficits, tone is normal in all 4 extremities. EXTREMITIES: There is 1+ peripheral edema. No clubbing, no cyanosis. Peripheral pulses are intact. - Labs CBC & Chem 7: 12/02/22 06:00 12/02/22 06:00 Labs: Abnormal Lab Results - Last 24 Hours (Table) 12/01/22 12/01/22 12/01/22 Range/Units 09:35 13:36 13:44 WBC 11.1 H (3.8-10.6) k/uL RBC 3.04 L (4.30-5.90) m/uL Hgb 9.0 L D (13.0-17.5) gm/dL Hct 26.7 L (39.0-53.0) % RDW (11.5-15.5) % Plt Count 134 L (150-450) k/uL Neutrophils # 9.8 H (1.3-7.7) k/uL Lymphocytes # 0.2 L (1.0-4.8) k/uL Sodium (137-145) mmol/L Chloride (98-107) mmol/L Carbon Dioxide (22-30) mmol/L BUN (9-20) mg/dL Creatinine (0.66-1.25) mg/dL Glucose (74-99) mg/dL POC Glucose (mg/dL) 234 H (70-110) mg/dL Calcium (8.4-10.2) mg/dL Procalcitonin (0.02-0.09) ng/mL Crossmatch See Detail 12/01/22 12/01/22 12/01/22 Range/Units 13:44 17:19 19:39 WBC 11.0 H (3.8-10.6) k/uL RBC 2.80 L (4.30-5.90) m/uL Hgb 8.3 L (13.0-17.5) gm/dL Hct 24.9 L (39.0-53.0) % RDW 16.3 H (11.5-15.5) % Plt Count (150-450) k/uL Neutrophils # (1.3-7.7) k/uL Lymphocytes # (1.0-4.8) k/uL Sodium (137-145) mmol/L Chloride (98-107) mmol/L Carbon Dioxide (22-30) mmol/L BUN (9-20) mg/dL Creatinine (0.66-1.25) mg/dL Glucose (74-99) mg/dL POC Glucose (mg/dL) 323 H (70-110) mg/dL Calcium (8.4-10.2) mg/dL Procalcitonin 0.35 H (0.02-0.09) ng/mL Crossmatch 12/01/22 12/02/22 12/02/22 Range/Units 20:03 01:49 06:00 WBC 12.8 H 13.0 H (3.8-10.6) k/uL RBC 2.69 L 2.55 L (4.30-5.90) m/uL Hgb 7.9 L 7.7 L (13.0-17.5) gm/dL Hct 25.4 L 22.8 L (39.0-53.0) % RDW 16.5 H 16.2 H (11.5-15.5) % Plt Count (150-450) k/uL Neutrophils # 11.7 H (1.3-7.7) k/uL Lymphocytes # 0.3 L (1.0-4.8) k/uL Sodium (137-145) mmol/L Chloride (98-107) mmol/L Carbon Dioxide (22-30) mmol/L BUN (9-20) mg/dL Creatinine (0.66-1.25) mg/dL Glucose (74-99) mg/dL POC Glucose (mg/dL) 133 H (70-110) mg/dL Calcium (8.4-10.2) mg/dL Procalcitonin (0.02-0.09) ng/mL Crossmatch 12/02/22 12/02/22 12/02/22 Range/Units 06:00 06:03 11:19 WBC (3.8-10.6) k/uL RBC (4.30-5.90) m/uL Hgb (13.0-17.5) gm/dL Hct (39.0-53.0) % RDW (11.5-15.5) % Plt Count (150-450) k/uL Neutrophils # (1.3-7.7) k/uL Lymphocytes # (1.0-4.8) k/uL Sodium 132 L (137-145) mmol/L Chloride 109 H (98-107) mmol/L Carbon Dioxide 20 L (22-30) mmol/L BUN 94 H (9-20) mg/dL Creatinine 1.61 H (0.66-1.25) mg/dL Glucose 168 H (74-99) mg/dL POC Glucose (mg/dL) 184 H 206 H (70-110) mg/dL Calcium 7.6 L (8.4-10.2) mg/dL Procalcitonin (0.02-0.09) ng/mL Crossmatch Assessment and Plan Assessment: Acute anemia secondary to acute gastrointestinal bleed, with a 4 g drop in hemoglobin. Status post 3 units of packed red blood cells. Current hemoglobin 7.7 Right-sided pleural effusion/consolidation. Echocardiogram reveals preserved left ventricular systolic function Acute hypoxemic respiratory failure secondary to an acute exacerbation of chronic diastolic congestive heart failure Atrial fibrillation with RVR. On amiodarone drip Hypotension secondary to anemia, requiring fluids and norepinephrine. History of hypertension. History of diabetes mellitus. History of hyperlipidemia. History of hypothyroidism. Prior history of pericardial effusion. Prior history of tobacco use. Plan: Chest x-ray, medications and labs reviewed Titrate down the norepinephrine as tolerated Titrate down the FiO2 as tolerated Continue fluid resuscitation Remains in a positive balance May require diuretics once blood pressure has stabilized Continue to hold anticoagulation We will continue to follow and make further recommendations based on his clinical status I have personally seen and examined the patient, performed the documentation and the assessment and plan as written. Number of minutes spent on the visit: 10.
[2022-12-02 11:53] LABS: Appearance,Urine Clear (Clear); Bacteria,Urine Rare /hpf; Bilirubin,Urine Negative (Negative); Blood,Urine Large (Negative); Color,Urine Light Yellow; Glucose,Urine (UA) Trace (Negative); Ketones,Urine Negative (Negative); Leukocyte Esterase,Urine Moderate (Negative); Mucus,Urine Rare /hpf; Nitrite,Urine Negative (Negative); Protein,Urine Negative (Negative); RBC,Urine 103 /hpf (0-5); Specific Gravity,Urine 1.015 (1.001-1.035); Urobilinogen,Urine <2.0 mg/dL (<2.0); WBC,Urine 7 /hpf (0-5)
[2022-12-02] MEDS: LEVOTHYROXINE 50 MCG TAB PO SCH (13:05)
--- NOTE | 2022-12-02 13:32 | P.PN ---
Subjective Progress Note Date: 12/02/22 Kalen Birmingham, is an 82 years old male who presented to [facility] emergency room with a chief complaint of shortness of breath. Patient states that his shortness of breath has started several weeks ago but has been worse recently. He was evaluated in the emergency room vital examination on presentation revealed a temperature of 98 pulse 148 respiration 24 blood pressure 119/83 pulse ox 99% on room air Laboratory data revealed a white blood count of 6.9 hemoglobin 11.5 platelet count 199 sodium 128 potassium 5.1 chloride 99 CO2 22 BUN 56 creatinine 0.99 glucose 181 troponin level less than 0.012 Testing in the emergency room revealed chest x-ray done in the emergency room revealed bilateral infiltrates and pleural effusions greater on the right, that represent congestive heart failure versus pneumonia. EKG done in the emergency room revealed evidence of atrial flutter with tachycardia and right bundle branch block. Patient was admitted to medical floor for further evaluation and treatment On 12/01/2022 patient was transferred to the ICU around 2 AM this morning due to hypotension. Patient was started on Levophed. Per nursing staff around 7 AM patient started have evidence of maroon stooling and blood in emesis. Patient has continued to decline requiring increased doses of Levophed. Blood product has been ordered. Critical care, cardiology and surgical services are consulted. On 12/02/2022 patient was seen and examined in the ICU he is alert and oriented 3 in no apparent distress, white blood count has increased slightly since yesterday and Procalcitonin level is elevated at 0.35 consultation for infectious disease was initiated and patient was started on IV cefepime, otherwise no significant change since yesterday, condition remains critical and will follow closely Objective - Vital Signs Vital signs: Vital Signs Temp 99 F 12/02/22 00:00 Pulse 107 H 12/02/22 07:00 Resp 24 12/02/22 07:00 BP 120/41 12/02/22 07:00 Pulse Ox 96 12/02/22 07:00 FiO2 Intake & Output 12/01/22 12/02/22 12/02/22 18:59 06:59 18:59 Intake Total 3687.747 1915.358 784.280 Output Total 835 920 360 Balance 2852.747 995.358 424.280 Weight 75.7 kg 78.6 kg 76.8 kg Intake: IV 1900 900 90 0.9 Bolus 1000 0.9 NACL 600 900 90 calcium gluconate 100 magnesium 200 Intake, IV Titration 982.881 7956.358 694.280 Amount Amiodarone 360 mg In 176.109 Dextrose 5% in Water 200 ml @ 1 MG/MIN 33.333 mls/ hr IV .Q6H [facility] Rx#: [id number] Amiodarone 450 mg In 250 Dextrose 5% in Water 250 ml @ 0.5 MG/MIN 16.667 mls/hr IV .Q15H [facility] Rx#: [id number] Dextrose 5% in Water 100 100 ml @ 618 mls/hr IV .Q10M [facility] with Amiodarone 150 mg Rx#:[id number] Diltiazem 125 mg In 5.333 Sodium Chloride 0.9% 100 ml @ 10 MG/HR 10 mls/hr IV .[id number] [facility] Rx#: [id number] Heparin Sod,Pork in 0.45% 43.784 NaCl 25,000 unit In 0.45 % NaCl 1 250ml.bag @ 12 UNITS/KG/HR 8.981 mls/hr IV .Q24H [facility] Rx#: [id number] Norepinephrine 4 mg In 632.521 Sodium Chloride 0.9% 250 ml @ 0.03 MCG/KG/MIN 7. 315 mls/hr IV .Q24H [facility] Rx#:[id number] Norepinephrine 8 mg In 765.358 219.280 Sodium Chloride 0.9% 250 ml @ 0.03 MCG/KG/MIN 4. 394 mls/hr IV .Q24H [facility] Rx#:[id number] Sodium Chloride 0.9% 1, 375 000 ml @ 75 mls/hr IV . [id number] [facility] Rx#:[id number] Blood Product 930 Rc As-1 Unit 310 [id number] Rc As-1 Unit 310 [id number] Rc As-1 Unit 310 [id number] Output: Urine 785 920 360 Emesis 50 Other: Voiding Method Indwelling Catheter Indwelling Catheter Indwelling Catheter # Bowel Movements 1 1 1 ABP, PAP, CO, CI - Last Documented Arterial Blood Pressure 125/41 - Exam Head normocephalic Neck supple Lungs clear to auscultation bilaterally no wheezing or crackles Heart irregular rate Abdomen is soft nontender nondistended positive bowel sounds no hepatosplenom egaly Extremities no edema - Labs CBC & Chem 7: 12/02/22 06:00 12/02/22 06:00 Labs: Abnormal Lab Results - Last 24 Hours (Table) 12/01/22 12/01/22 12/01/22 Range/Units 09:35 13:36 13:44 WBC 11.1 H (3.8-10.6) k/uL RBC 3.04 L (4.30-5.90) m/uL Hgb 9.0 L D (13.0-17.5) gm/dL Hct 26.7 L (39.0-53.0) % RDW (11.5-15.5) % Plt Count 134 L (150-450) k/uL Neutrophils # 9.8 H (1.3-7.7) k/uL Lymphocytes # 0.2 L (1.0-4.8) k/uL Sodium (137-145) mmol/L Chloride (98-107) mmol/L Carbon Dioxide (22-30) mmol/L BUN (9-20) mg/dL Creatinine (0.66-1.25) mg/dL Glucose (74-99) mg/dL POC Glucose (mg/dL) 234 H (70-110) mg/dL Calcium (8.4-10.2) mg/dL Procalcitonin (0.02-0.09) ng/mL Urine Glucose (UA) (Negative) Urine Blood (Negative) Ur Leukocyte Esterase (Negative) Urine RBC (0-5) /hpf Urine WBC (0-5) /hpf Urine Bacteria (None) /hpf Urine Mucus (None) /hpf Crossmatch See Detail 12/01/22 12/01/22 12/01/22 Range/Units 13:44 17:19 19:39 WBC 11.0 H (3.8-10.6) k/uL RBC 2.80 L (4.30-5.90) m/uL Hgb 8.3 L (13.0-17.5) gm/dL Hct 24.9 L (39.0-53.0) % RDW 16.3 H (11.5-15.5) % Plt Count (150-450) k/uL Neutrophils # (1.3-7.7) k/uL Lymphocytes # (1.0-4.8) k/uL Sodium (137-145) mmol/L Chloride (98-107) mmol/L Carbon Dioxide (22-30) mmol/L BUN (9-20) mg/dL Creatinine (0.66-1.25) mg/dL Glucose (74-99) mg/dL POC Glucose (mg/dL) 323 H (70-110) mg/dL Calcium (8.4-10.2) mg/dL Procalcitonin 0.35 H (0.02-0.09) ng/mL Urine Glucose (UA) (Negative) Urine Blood (Negative) Ur Leukocyte Esterase (Negative) Urine RBC (0-5) /hpf Urine WBC (0-5) /hpf Urine Bacteria (None) /hpf Urine Mucus (None) /hpf Crossmatch 12/01/22 12/02/22 12/02/22 Range/Units 20:03 01:49 06:00 WBC 12.8 H 13.0 H (3.8-10.6) k/uL RBC 2.69 L 2.55 L (4.30-5.90) m/uL Hgb 7.9 L 7.7 L (13.0-17.5) gm/dL Hct 25.4 L 22.8 L (39.0-53.0) % RDW 16.5 H 16.2 H (11.5-15.5) % Plt Count (150-450) k/uL Neutrophils # 11.7 H (1.3-7.7) k/uL Lymphocytes # 0.3 L (1.0-4.8) k/uL Sodium (137-145) mmol/L Chloride (98-107) mmol/L Carbon Dioxide (22-30) mmol/L BUN (9-20) mg/dL Creatinine (0.66-1.25) mg/dL Glucose (74-99) mg/dL POC Glucose (mg/dL) 133 H (70-110) mg/dL Calcium (8.4-10.2) mg/dL Procalcitonin (0.02-0.09) ng/mL Urine Glucose (UA) (Negative) Urine Blood (Negative) Ur Leukocyte Esterase (Negative) Urine RBC (0-5) /hpf Urine WBC (0-5) /hpf Urine Bacteria (None) /hpf Urine Mucus (None) /hpf Crossmatch 12/02/22 12/02/22 12/02/22 Range/Units 06:00 06:03 11:19 WBC (3.8-10.6) k/uL RBC (4.30-5.90) m/uL Hgb (13.0-17.5) gm/dL Hct (39.0-53.0) % RDW (11.5-15.5) % Plt Count (150-450) k/uL Neutrophils # (1.3-7.7) k/uL Lymphocytes # (1.0-4.8) k/uL Sodium 132 L (137-145) mmol/L Chloride 109 H (98-107) mmol/L Carbon Dioxide 20 L (22-30) mmol/L BUN 94 H (9-20) mg/dL Creatinine 1.61 H (0.66-1.25) mg/dL Glucose 168 H (74-99) mg/dL POC Glucose (mg/dL) 184 H 206 H (70-110) mg/dL Calcium 7.6 L (8.4-10.2) mg/dL Procalcitonin (0.02-0.09) ng/mL Urine Glucose (UA) (Negative) Urine Blood (Negative) Ur Leukocyte Esterase (Negative) Urine RBC (0-5) /hpf Urine WBC (0-5) /hpf Urine Bacteria (None) /hpf Urine Mucus (None) /hpf Crossmatch 12/02/22 Range/Units 11:20 WBC (3.8-10.6) k/uL RBC (4.30-5.90) m/uL Hgb (13.0-17.5) gm/dL Hct (39.0-53.0) % RDW (11.5-15.5) % Plt Count (150-450) k/uL Neutrophils # (1.3-7.7) k/uL Lymphocytes # (1.0-4.8) k/uL Sodium (137-145) mmol/L Chloride (98-107) mmol/L Carbon Dioxide (22-30) mmol/L BUN (9-20) mg/dL Creatinine (0.66-1.25) mg/dL Glucose (74-99) mg/dL POC Glucose (mg/dL) (70-110) mg/dL Calcium (8.4-10.2) mg/dL Procalcitonin (0.02-0.09) ng/mL Urine Glucose (UA) Trace H (Negative) Urine Blood Large H (Negative) Ur Leukocyte Esterase Moderate H (Negative) Urine RBC 103 H (0-5) /hpf Urine WBC 7 H (0-5) /hpf Urine Bacteria Rare H (None) /hpf Urine Mucus Rare H (None) /hpf Crossmatch Assessment and Plan Plan: Atrial flutter with rapid ventricular response, patient was started on IV heparin and IV Cardizem drip in the emergency room, will order echocardiogram and consult cardiology. Heparin drip was DC'd due to GI bleed. Patient has been started on amiodarone and Cardizem drip DC'd acute GI bleed. Heparin drip DC'd. Surgical service is consulted blood product ordered Blood loss anemia secondary to GI bleed Hypotension. Patient started on Levophed and transferred to ICU Dehydration with significant elevation in BUN at 56, will continue with very gentle hydration , Hyponatremia sodium 128 Bilateral pulmonary infiltrates and pleural effusion that may represent congestive heart failure versus pneumonia, however no clinical evidence of pneumonia there is no fever no cough and no leukocytosis, will hold off antibiotics at this time, pulmonary consultation was requested. Underlying history of [id number] diabetes mellitus Underlying history of hypertension Underlying history of hyperlipidemia At this time patient is admitted to telemetry floor Patient has been transferred to the ICU for higher level care Patient remains on Levophed for pressure support 3 units PRBCs ordered Critical care, cardiology, surgical services and nephrology service is consulted Patient remains on amiodarone
[2022-12-02] MEDS: CEFEPIME 2 GM in SODIUM CHLORIDE 0.9% 100 ML IVPB SCH ×2 (13:33→21:51)
--- NOTE | 2022-12-02 14:28 | P.PN ---
Subjective Progress Note Date: 12/02/22 CHIEF COMPLAINT: GI bleed with anemia HISTORY OF PRESENT ILLNESS: The patient is a 82-year-old male with atrial fibrillation, rapid ventricular response and IV heparin. Hemoglobin was down from 11.5-7.1 in 24 hours from admission. Hemoglobin down to 8.3-7.7. ROS: No reports of nausea and vomiting. No acute mental status changes PHYSICAL EXAM: VITAL SIGNS: Reviewed CONSTITUTIONAL: Well developed and in no acute distress. EYES: Conjuctivae without sclera icterus. Extraocular movements grossly intact. HEAD, EARS, NOSE, THROAT: Moist buccal mucosa. Head is atraumatic, normocephalic. Hears conversational speech. No nasal drainage. RESPIRATORY: Non-labored respirations and equal bilateral excursions. CARDIOVASCULAR: Palpable 2+ radial pulses. ABDOMEN: No peritonitis. MUSCULOSKELETAL: No gross deformity of the lower extremities noted. No clubbing. No cyanosis. SKIN: Good skin turgor. Well perfused. NEUROLOGIC: Cranial nerves II through XII grossly intact. No focal or laterali zing signs. PSYCH: Alert to self. CLINICAL LABS: Reviewed. Hemoglobin down 11.5-7.1, from admission. Hemoglobin down to 8.3-7.7 in 24 hours. White blood cell count of 11.0-13.0, leukocytosis. ASSESSMENT: 1. Acute blood loss anemia 2. Gastrointestinal bleed 3. Atrial fibrillation rapid ventricular response 4. Adverse event from anticoagulant, heparin PLAN: 1. Monitor hemoglobin. 2. May benefit from upper and lower endoscopy for persistent anemia Objective - Vital Signs Vital signs: Vital Signs Temp 99 F 12/02/22 00:00 Pulse 107 H 12/02/22 07:00 Resp 24 12/02/22 07:00 BP 120/41 12/02/22 07:00 Pulse Ox 96 12/02/22 07:00 FiO2 Intake & Output 12/01/22 12/02/22 12/02/22 18:59 06:59 18:59 Intake Total 3687.747 1915.358 706.280 Output Total 835 920 315 Balance 2852.747 995.358 391.280 Weight 75.7 kg 78.6 kg 76.8 kg Intake: IV 1900 900 87 0.9 Bolus 1000 0.9 NACL 600 900 87 calcium gluconate 100 magnesium 200 Intake, IV Titration 801.646 7796.358 619.280 Amount Amiodarone 360 mg In 176.109 Dextrose 5% in Water 200 ml @ 1 MG/MIN 33.333 mls/ hr IV .Q6H [facility] Rx#: [id number] Amiodarone 450 mg In 250 Dextrose 5% in Water 250 ml @ 0.5 MG/MIN 16.667 mls/hr IV .Q15H [facility] Rx#: [id number] Dextrose 5% in Water 100 100 ml @ 618 mls/hr IV .Q10M ONE with Amiodarone 150 mg Rx#:[id number] Diltiazem 125 mg In 5.333 Sodium Chloride 0.9% 100 ml @ 10 MG/HR 10 mls/hr IV .[id number] [facility] Rx#: [id number] Heparin Sod,Pork in 0.45% 43.784 NaCl 25,000 unit In 0.45 % NaCl 1 250ml.bag @ 12 UNITS/KG/HR 8.981 mls/hr IV .Q24H [facility] Rx#: [id number] Norepinephrine 4 mg In 632.521 Sodium Chloride 0.9% 250 ml @ 0.03 MCG/KG/MIN 7. 315 mls/hr IV .Q24H [facility] Rx#:[id number] Norepinephrine 8 mg In 765.358 219.280 Sodium Chloride 0.9% 250 ml @ 0.03 MCG/KG/MIN 4. 394 mls/hr IV .Q24H [facility] Rx#:[id number] Sodium Chloride 0.9% 1, 300 000 ml @ 75 mls/hr IV . [id number] [facility] Rx#:[id number] Blood Product 930 Rc As-1 Unit 310 [id number] Rc As-1 Unit 310 [id number] Rc As-1 Unit 310 [id number] Output: Urine 785 920 315 Emesis 50 Other: Voiding Method Indwelling Catheter Indwelling Catheter Indwelling Catheter # Bowel Movements 1 1 1 ABP, PAP, CO, CI - Last Documented Arterial Blood Pressure 125/41 - Labs CBC & Chem 7: 12/02/22 06:00 12/02/22 06:00 Labs: Abnormal Lab Results - Last 24 Hours (Table) 12/01/22 12/01/22 12/01/22 Range/Units 09:35 13:36 13:44 WBC 11.1 H (3.8-10.6) k/uL RBC 3.04 L (4.30-5.90) m/uL Hgb 9.0 L D (13.0-17.5) gm/dL Hct 26.7 L (39.0-53.0) % RDW (11.5-15.5) % Plt Count 134 L (150-450) k/uL Neutrophils # 9.8 H (1.3-7.7) k/uL Lymphocytes # 0.2 L (1.0-4.8) k/uL Sodium (137-145) mmol/L Chloride (98-107) mmol/L Carbon Dioxide (22-30) mmol/L BUN (9-20) mg/dL Creatinine (0.66-1.25) mg/dL Glucose (74-99) mg/dL POC Glucose (mg/dL) 234 H (70-110) mg/dL Calcium (8.4-10.2) mg/dL Procalcitonin (0.02-0.09) ng/mL Crossmatch See Detail 12/01/22 12/01/22 12/01/22 Range/Units 13:44 17:19 19:39 WBC 11.0 H (3.8-10.6) k/uL RBC 2.80 L (4.30-5.90) m/uL Hgb 8.3 L (13.0-17.5) gm/dL Hct 24.9 L (39.0-53.0) % RDW 16.3 H (11.5-15.5) % Plt Count (150-450) k/uL Neutrophils # (1.3-7.7) k/uL Lymphocytes # (1.0-4.8) k/uL Sodium (137-145) mmol/L Chloride (98-107) mmol/L Carbon Dioxide (22-30) mmol/L BUN (9-20) mg/dL Creatinine (0.66-1.25) mg/dL Glucose (74-99) mg/dL POC Glucose (mg/dL) 323 H (70-110) mg/dL Calcium (8.4-10.2) mg/dL Procalcitonin 0.35 H (0.02-0.09) ng/mL Crossmatch 12/01/22 12/02/22 12/02/22 Range/Units 20:03 01:49 06:00 WBC 12.8 H 13.0 H (3.8-10.6) k/uL RBC 2.69 L 2.55 L (4.30-5.90) m/uL Hgb 7.9 L 7.7 L (13.0-17.5) gm/dL Hct 25.4 L 22.8 L (39.0-53.0) % RDW 16.5 H 16.2 H (11.5-15.5) % Plt Count (150-450) k/uL Neutrophils # 11.7 H (1.3-7.7) k/uL Lymphocytes # 0.3 L (1.0-4.8) k/uL Sodium (137-145) mmol/L Chloride (98-107) mmol/L Carbon Dioxide (22-30) mmol/L BUN (9-20) mg/dL Creatinine (0.66-1.25) mg/dL Glucose (74-99) mg/dL POC Glucose (mg/dL) 133 H (70-110) mg/dL Calcium (8.4-10.2) mg/dL Procalcitonin (0.02-0.09) ng/mL Crossmatch 12/02/22 12/02/22 12/02/22 Range/Units 06:00 06:03 11:19 WBC (3.8-10.6) k/uL RBC (4.30-5.90) m/uL Hgb (13.0-17.5) gm/dL Hct (39.0-53.0) % RDW (11.5-15.5) % Plt Count (150-450) k/uL Neutrophils # (1.3-7.7) k/uL Lymphocytes # (1.0-4.8) k/uL Sodium 132 L (137-145) mmol/L Chloride 109 H (98-107) mmol/L Carbon Dioxide 20 L (22-30) mmol/L BUN 94 H (9-20) mg/dL Creatinine 1.61 H (0.66-1.25) mg/dL Glucose 168 H (74-99) mg/dL POC Glucose (mg/dL) 184 H 206 H (70-110) mg/dL Calcium 7.6 L (8.4-10.2) mg/dL Procalcitonin (0.02-0.09) ng/mL Crossmatch
[2022-12-02 17:51] LABS: Glucose,Whole Blood 197 mg/dL (70-110)
[2022-12-02 20:05] LABS: Glucose,Whole Blood 205 mg/dL (70-110)
--- NOTE | 2022-12-02 21:26 | P.CONS ---
History of Present Illness - Reason for Consult Consult date: 12/02/22 Leukocytosis Requesting physician: Joseluis Clay - Chief Complaint Weakness and shortness of breath x few days - History of Present Illness Patient is 82 year old male with a past medical history significant for hypertension hyperlipidemia hypothyroidism diabetes mellitus did have a history of pericarditis and pericardial effusion who 2 years ago patient presented to the ER 2 days ago on 11/30/2022 for evaluation of increasing shortness of breath that apparently has been getting worse for about a week or 2 patient also noticed to have elevated heart rate and he did have a mild nonproductive cough with these symptoms patient was evaluated on arrival to the ER the patient was afebrile and subsequently no high-grade fever has been recorded except for low-grade fever of 99F patient did have a normal white count of 6.9 admission however the patient white count is slowly trending up and is up to 13,000 today , the patient did have mildly elevated BUN and creatinine liver enzymes are normal, Procalcitonin was mildly elevated to 0.35, patient did have a chest x-ray mostly interstitial infiltrate and effusion concerning for congestive heart failure infectious disease was consulted today because of his elevated white count and progressively concerning for infection and need for antibiotic therapy most of the information has been obtained from review the chart and talking to the at the bedside as the patient is currently lethargic and did not provide any history he was noticed to have mild congested cough though but no sputum production per the nursing staff no vomiting or diarrhea Review of Systems Positive points has been mentioned in HPI complete review could not be obtained because of his underlying mental status Past Medical History Past Medical History: Diabetes Mellitus, Hyperlipidemia, Hypertension, Thyroid Disorder Additional Past Medical History / Comment(s): pericardial effusion History of Any Multi-Drug Resistant Organisms: None Reported Past Surgical History: Hernia Repair Additional Past Surgical History / Comment(s): BILATERAL CATARACTS REMOVED SEP 13 Past Anesthesia/Blood Transfusion Reactions: No Reported Reaction Past Psychological History: No Psychological Hx Reported Smoking Status: Former smoker Past Alcohol Use History: Rare Past Drug Use History: None Reported Additional Drug Use History / Comment(s): smoked a pipe - Past Family History Son(s) Family Medical History: Cancer Mother Additional Family Medical History / Comment(s): parkinsons and dementia Sister(s) Additional Family Medical History / Comment(s): passed in 2021 from "blood clots" Medications and Allergies Home Medications Medication Instructions Recorded Confirmed Type Pravastatin Sodium [Pravachol] 20 mg PO W/SUPPER 01/30/21 11/30/22 History metFORMIN HCL [Glucophage] 500 mg PO W/SUPPER 01/30/21 11/30/22 History Ipratropium [place] [Ipratropium 1 spr EA NOSTRIL DAILY 11/30/22 11/30/22 History [place] 0.03%] Levothyroxine Sodium [Synthroid] 50 mcg PO AC-BRKFST 11/30/22 11/30/22 History Metoprolol Tartrate [Lopressor] 25 mg PO BID-W/MEALS 11/30/22 11/30/22 History Pioglitazone [Actos] 45 mg PO W/SUPPER 11/30/22 11/30/22 History Repaglinide [Prandin] 0.5 mg PO W/SUPPER 11/30/22 11/30/22 History lisinopriL [Zestril] 20 mg PO DAILY 11/30/22 11/30/22 History Allergies Allergy/AdvReac Type Severity Reaction Status Date / Time Penicillins Allergy Rash/Hives Verified 11/30/22 11:52 all over body Physical Exam Vitals: Vital Signs Temp Pulse Pulse Resp BP BP Pulse Ox 12/02/22 07:00 107 H 24 120/41 96 12/02/22 06:00 98 98 H 124/41 94 L 12/02/22 05:00 96 25 H 138/46 93 L 12/02/22 04:00 90 106/51 95 12/02/22 03:00 105 H 129/54 97 12/02/22 02:00 33 H 122/59 12/02/22 01:00 94 21 114/62 92 L 12/02/22 00:00 99 F 84 26 H 113/64 96 12/01/22 23:35 33 H 125/56 96 12/01/22 23:00 88 27 H 125/56 96 12/01/22 22:00 78 23 119/66 99 12/01/22 21:00 82 107/53 95 12/01/22 20:00 97.7 F 84 30 H 117/56 97 12/01/22 19:00 88 24 115/52 97 12/01/22 18:45 88 107/58 96 01/20/23 18:30 81 111/56 97 12/01/22 18:15 85 24 114/54 97 12/01/22 18:00 80 26 H 113/69 96 12/01/22 17:45 81 26 H 114/56 98 12/01/22 17:30 81 24 124/61 98 12/01/22 17:15 82 26 H 113/64 96 12/01/22 17:00 79 24 115/67 100 12/01/22 16:45 80 22 122/62 98 12/01/22 16:30 79 111/58 91 L 12/01/22 16:15 76 24 118/52 99 12/01/22 16:00 98 F 20 98/47 96 12/01/22 15:45 76 31 H 102/58 95 12/01/22 15:30 77 23 103/53 96 12/01/22 15:15 77 35 H 98/60 95 12/01/22 15:00 78 27 H 98/49 88 L 12/01/22 14:45 74 60 H 96/72 97 12/01/22 14:30 79 31 H 89/75 98 12/01/22 14:15 76 31 H 91/53 96 12/01/22 14:00 80 26 H 96/52 97 12/01/22 13:45 75 102/66 97 12/01/22 13:30 79 104/54 97 12/01/22 13:15 75 22 112/59 96 12/01/22 13:00 79 31 H 115/58 96 12/01/22 12:45 75 35 H 117/63 100 Intake and Output 12/01/22 12/02/22 12/02/22 22:59 06:59 14:59 Intake Total 0371.394 8955.358 784.280 Output Total 595 490 360 Balance 563.000 867.358 424.280 Intake: IV 900 600 90 0.9 NACL 600 600 90 calcium gluconate 100 magnesium 200 Intake, IV Titration 258.000 757.358 694.280 Amount Amiodarone 450 mg In 250 Dextrose 5% in Water 250 ml @ 0.5 MG/MIN 16.667 mls/hr IV .Q15H [facility] Rx#: [id number] Dextrose 5% in Water 100 100 ml @ 618 mls/hr IV .Q10M ONE with Amiodarone 150 mg Rx#:[id number] Norepinephrine 8 mg In 258.000 507.358 219.280 Sodium Chloride 0.9% 250 ml @ 0.03 MCG/KG/MIN 4. 394 mls/hr IV .Q24H [facility] Rx#:[id number] Sodium Chloride 0.9% 1, 375 000 ml @ 75 mls/hr IV . [id number] [facility] Rx#:[id number] Output: Urine 595 490 360 Other: Voiding Method Indwelling Catheter Indwelling Catheter Indwelling Catheter # Bowel Movements 1 1 1 Weight 78.6 kg 76.8 kg GENERAL DESCRIPTION: Elderly male lying in bed, no distress. No tachypnea or accessory muscle of respiration use. HEENT: Shows Pallor , no scleral icterus. Oral mucous membrane is dry. No pharyngeal erythema or thrush NECK: Trachea central, no thyromegaly. LUNGS: Unlabored breathing. Decreased breath sounds at the base. HEART: S1, S2, regular rate and rhythm. No loud murmur ABDOMEN: Soft, no tenderness , guarding or rigidity, no organomegaly EXTREMITIES: 2+ edema of feet. SKIN: No rash, no masses palpable. NEUROLOGICAL: The patient is sleepy lethargic orientation could not be determined . Results CBC & Chem 7: 12/04/22 04:38 12/04/22 04:38 Labs: Abnormal Lab Results - Last 24 Hours (Table) 12/01/22 12/01/22 12/01/22 Range/Units 09:35 13:36 13:44 WBC 11.1 H (3.8-10.6) k/uL RBC 3.04 L (4.30-5.90) m/uL Hgb 9.0 L D (13.0-17.5) gm/dL Hct 26.7 L (39.0-53.0) % RDW (11.5-15.5) % Plt Count 134 L (150-450) k/uL Neutrophils # 9.8 H (1.3-7.7) k/uL Lymphocytes # 0.2 L (1.0-4.8) k/uL Sodium (137-145) mmol/L Chloride (98-107) mmol/L Carbon Dioxide (22-30) mmol/L BUN (9-20) mg/dL Creatinine (0.66-1.25) mg/dL Glucose (74-99) mg/dL POC Glucose (mg/dL) 234 H (70-110) mg/dL Calcium (8.4-10.2) mg/dL Procalcitonin (0.02-0.09) ng/mL Urine Glucose (UA) (Negative) Urine Blood (Negative) Ur Leukocyte Esterase (Negative) Urine RBC (0-5) /hpf Urine WBC (0-5) /hpf Urine Bacteria (None) /hpf Urine Mucus (None) /hpf Crossmatch See Detail 12/01/22 12/01/22 12/01/22 Range/Units 13:44 17:19 19:39 WBC 11.0 H (3.8-10.6) k/uL RBC 2.80 L (4.30-5.90) m/uL Hgb 8.3 L (13.0-17.5) gm/dL Hct 24.9 L (39.0-53.0) % RDW 16.3 H (11.5-15.5) % Plt Count (150-450) k/uL Neutrophils # (1.3-7.7) k/uL Lymphocytes # (1.0-4.8) k/uL Sodium (137-145) mmol/L Chloride (98-107) mmol/L Carbon Dioxide (22-30) mmol/L BUN (9-20) mg/dL Creatinine (0.66-1.25) mg/dL Glucose (74-99) mg/dL POC Glucose (mg/dL) 323 H (70-110) mg/dL Calcium (8.4-10.2) mg/dL Procalcitonin 0.35 H (0.02-0.09) ng/mL Urine Glucose (UA) (Negative) Urine Blood (Negative) Ur Leukocyte Esterase (Negative) Urine RBC (0-5) /hpf Urine WBC (0-5) /hpf Urine Bacteria (None) /hpf Urine Mucus (None) /hpf Crossmatch 12/01/22 12/02/22 12/02/22 Range/Units 20:03 01:49 06:00 WBC 12.8 H 13.0 H (3.8-10.6) k/uL RBC 2.69 L 2.55 L (4.30-5.90) m/uL Hgb 7.9 L 7.7 L (13.0-17.5) gm/dL Hct 25.4 L 22.8 L (39.0-53.0) % RDW 16.5 H 16.2 H (11.5-15.5) % Plt Count (150-450) k/uL Neutrophils # 11.7 H (1.3-7.7) k/uL Lymphocytes # 0.3 L (1.0-4.8) k/uL Sodium (137-145) mmol/L Chloride (98-107) mmol/L Carbon Dioxide (22-30) mmol/L BUN (9-20) mg/dL Creatinine (0.66-1.25) mg/dL Glucose (74-99) mg/dL POC Glucose (mg/dL) 133 H (70-110) mg/dL Calcium (8.4-10.2) mg/dL Procalcitonin (0.02-0.09) ng/mL Urine Glucose (UA) (Negative) Urine Blood (Negative) Ur Leukocyte Esterase (Negative) Urine RBC (0-5) /hpf Urine WBC (0-5) /hpf Urine Bacteria (None) /hpf Urine Mucus (None) /hpf Crossmatch 12/02/22 12/02/22 12/02/22 Range/Units 06:00 06:03 11:19 WBC (3.8-10.6) k/uL RBC (4.30-5.90) m/uL Hgb (13.0-17.5) gm/dL Hct (39.0-53.0) % RDW (11.5-15.5) % Plt Count (150-450) k/uL Neutrophils # (1.3-7.7) k/uL Lymphocytes # (1.0-4.8) k/uL Sodium 132 L (137-145) mmol/L Chloride 109 H (98-107) mmol/L Carbon Dioxide 20 L (22-30) mmol/L BUN 94 H (9-20) mg/dL Creatinine 1.61 H (0.66-1.25) mg/dL Glucose 168 H (74-99) mg/dL POC Glucose (mg/dL) 184 H 206 H (70-110) mg/dL Calcium 7.6 L (8.4-10.2) mg/dL Procalcitonin (0.02-0.09) ng/mL Urine Glucose (UA) (Negative) Urine Blood (Negative) Ur Leukocyte Esterase (Negative) Urine RBC (0-5) /hpf Urine WBC (0-5) /hpf Urine Bacteria (None) /hpf Urine Mucus (None) /hpf Crossmatch 12/02/22 Range/Units 11:20 WBC (3.8-10.6) k/uL RBC (4.30-5.90) m/uL Hgb (13.0-17.5) gm/dL Hct (39.0-53.0) % RDW (11.5-15.5) % Plt Count (150-450) k/uL Neutrophils # (1.3-7.7) k/uL Lymphocytes # (1.0-4.8) k/uL Sodium (137-145) mmol/L Chloride (98-107) mmol/L Carbon Dioxide (22-30) mmol/L BUN (9-20) mg/dL Creatinine (0.66-1.25) mg/dL Glucose (74-99) mg/dL POC Glucose (mg/dL) (70-110) mg/dL Calcium (8.4-10.2) mg/dL Procalcitonin (0.02-0.09) ng/mL Urine Glucose (UA) Trace H (Negative) Urine Blood Large H (Negative) Ur Leukocyte Esterase Moderate H (Negative) Urine RBC 103 H (0-5) /hpf Urine WBC 7 H (0-5) /hpf Urine Bacteria Rare H (None) /hpf Urine Mucus Rare H (None) /hpf Crossmatch Assessment and Plan (1) Leukocytosis Status: Acute Code(s): D72.829 - ELEVATED WHITE BLOOD CELL COUNT, UNSPECIFIED SNOMED Code(s): 780546126 Plan: 1patient with leukocytosis which is likely multifactorial in this patient presented to hospital predominantly with increasing shortness of breath patient also have some congested cough but no sputum production questionably reactive to underlying CHF , underlying pneumonia less likely but not entirely excluded patient also have mildly positive UA could be contributing to his elevated white count is abdominal was soft on clinical examination and no evidence of any cellulitis or joint swelling 2patient with penicillin ALLERGY that would limit the number of antibiotic safety use 3-we will obtain blood cultures CRP 4-we will empirically add cefepime 2 g every 12hr while waiting for the cultures to finalize We will follow on clinical condition and cultures to further adjust medication if needed Thank you for this consultation will follow this patient with you Time with Patient: Greater than 30
[2022-12-03] MEDS: ACETAMINOPHEN IV (For NPO) 1,000 MG in EMPTY BAG 1 BAG IVPB PRN ×2 (02:09→07:55)
[2022-12-03] MEDS: NOREPINEPHRINE 8 MG in SODIUM CHLORIDE 0.9% 250 ML IV SCH ×9 (04:02→18:50)
[2022-12-03] MEDS: SODIUM CHLORIDE 0.9% 1,000 ML IV SCH ×2 (04:03→16:02)
[2022-12-03] MEDS: AMIODARONE 450 MG in DEXTROSE 5% IN WATER 250 ML IV SCH ×2 (05:12)
[2022-12-03 05:21] LABS: Anisocytosis Slight; Basophils % (A) 0 %; Eosinophils # (A) 0.1 k/uL (0-0.7); Eosinophils % (A) 1 %; HCT 21.8 % (39.0-53.0); HGB 7.2 gm/dL (13.0-17.5); Lymphocytes # (A) 0.3 k/uL (1.0-4.8); Lymphocytes % (A) 3 %; MCH 30.3 pg (25.0-35.0); MCHC 32.9 g/dL (31.0-37.0); MCV 92.2 fL (80.0-100.0); Mean Platelet Volume 8.4; Monocytes # (A) 0.5 k/uL (0-1.0); Monocytes % (A) 5 %; Neutrophils # (A) 10.2 k/uL (1.3-7.7); Neutrophils % (A) 90 %; Platelet Count 192 k/uL (150-450); Poikilocytosis Slight; RBC 2.36 m/uL (4.30-5.90); RDW 16.9 % (11.5-15.5); WBC 11.3 k/uL (3.8-10.6)
[2022-12-03 05:33] LABS: Calcium 7.8 mg/dL (8.4-10.2)
[2022-12-03 06:23] LABS: Glucose,Whole Blood 202 mg/dL (70-110)
[2022-12-03] MEDS: INSULIN ASPART (NovoLOG) 100 UNIT/ML VIAL SQ SCH ×4 (06:39→21:01)
--- NOTE | 2022-12-03 06:51 | XR ---
EXAMINATION TYPE: XR chest 1V portable DATE OF EXAM: 12/03/2022 COMPARISON: 12/02/2022 HISTORY: Shortness of breath TECHNIQUE: Single frontal view of the chest is obtained. FINDINGS: No change in the left-sided PICC line. Allowing for differences in technique, upright versus supine, there is no significant change in the b ilateral pleural effusions, right greater than left. No change in congestion The osseous structures are intact. IMPRESSION: Marked acute cardiopulmonary disease with essentially no interval change
--- NOTE | 2022-12-03 07:46 | P.PN ---
Subjective Progress Note Date: 12/03/22 Principal diagnosis: Gastrointestinal bleed The patient is an 82-year-old gentleman with a past medical history significant for diabetes and hypertension and dyslipidemia and history of atrial tachycardia. We asked to see the patient as a consult here in the intensive care unit for further evaluation of atrial fibrillation with RVR and also for further evaluation of shortness of breath. The patient was seen and evaluated at that site. He is somewhat poor historian. He was falling speed when he was talking to me. Apparently he presented for about a week history of progressive exertional dyspnea and progressive weakness and dizziness and lightheadedness but no presyncope or syncope and no symptoms of chest pain or chest discomfort. He was evaluated in the emergency department. The initial hemoglobin was around 11 but subsequently the second hemoglobin dropped to about 7. He was hypotensive requiring norepinephrine he continues to be on norepinephrine. Also he was found to be in atrial fibrillation with RVR and subsequently was started on Cardizem IV as well as amiodarone IV. No history of atrial fibrillation before. He is known to have atrial tachycardia. The last echo from 2020 revealed preserved biventricular systolic function with no significant valvular abnormalities. The patient did have a bowel movement when he was on the floor and that was normal subsequently a second bowel movement in the intensive care unit was bloody. I believe the whole clinical scenario the patient including his symptoms of dizziness lightheadedness and shortness of breath is consistent with gastrointestinal bleeding. Currently he is on heparin which we are going to stop. He still hypotensive requiring norepinephrine. Distal in atrial fibrillation with heart rate around 100. On examination he seems to be in mild heart failure predominantly right was bilateral lower extent is pitting edema noted and diminished breathing sounds bilaterally. The chest x-ray showed findings consistent with CHF. The NT proBNP was not checked. We are going to check that December [id number] The patient was seen and evaluated this morning. Unfortunately he continues to be unstable requiring norepinephrine. He still hypoxic requiring at least 3 L of oxygen. He is converted to normal sinus mechanism. He is in process to be seen by the general surgery service for possible upper or lower endoscopy. On examination he is congested was diminished breathing sounds bilaterally and bilateral lower extremities edema. The chest x-ray showed findings consistent with CHF. December [id number] The patient was seen this morning. Apparently he looks more lethargic. He remains unstable and requiring norepinephrine. He remains hypoxic on oxygen through nasal cannula. The hemoglobin is a stable and remains above 7. He remains in nature fibrillation with overall heart rate around 110 and sometimes 120 beats per minutes. He remains nothing by mouth and for that reason we are going to keep the amiodarone IV at this point. Oral anticoagulation obviously are on hold at this point because of the GI bleeding. He did have an episode of black stool within the last 24 hours. Objective - Vital Signs Vital signs: Vital Signs Temp 97.5 F L 12/03/22 04:00 Pulse 117 H 12/03/22 07:00 Resp 24 12/03/22 07:00 BP 119/57 12/03/22 07:00 Pulse Ox 95 12/03/22 07:00 FiO2 Intake & Output 12/02/22 12/03/22 12/03/22 18:59 06:59 18:59 Intake Total 2330.437 2307.294 75 Output Total 605 446 30 Balance 7938.212 2038.294 45 Weight 76.8 kg 83.5 kg Intake: IV 108 3 0.9 NACL 108 3 Intake, IV Titration 2222.437 2304.294 75 Amount ACETAMINOPHEN IV (For NPO 100 ) 1,000 mg In Empty Bag 1 bag @ 400 mls/hr IVPB Q6HR PRN Rx#:[id number] Amiodarone 360 mg In 315.976 Dextrose 5% in Water 200 ml @ 1 MG/MIN 33.333 mls/ hr IV .Q6H [facility] Rx#: [id number] Amiodarone 450 mg In 33.2 221.049 Dextrose 5% in Water 250 ml @ 0.5 MG/MIN 16.667 mls/hr IV .Q15H [facility] Rx#: [id number] Cefepime 2 gm In Sodium 100 100 Chloride 0.9% 100 ml @ 25 mls/hr IVPB Q12HR [facility] Rx #:[id number] Dextrose 5% in Water 100 100 ml @ 618 mls/hr IV .Q10M ONE with Amiodarone 150 mg Rx#:[id number] Norepinephrine 8 mg In 848.261 983.245 Sodium Chloride 0.9% 250 ml @ 0.03 MCG/KG/MIN 4. 394 mls/hr IV .Q24H [facility] Rx#:[id number] Sodium Chloride 0.9% 1, 825 900 75 000 ml @ 75 mls/hr IV . [id number] [facility] Rx#:[id number] Output: Urine 605 445 30 Stool 1 Other: Voiding Method Indwelling Catheter Indwelling Catheter # Bowel Movements 1 ABP, PAP, CO, CI - Last Documented Arterial Blood Pressure 103/68 - Constitutional General appearance: Present: mild distress - Respiratory Respiratory: bilateral: diminished - Cardiovascular Rhythm: irregularly irregular - Labs CBC & Chem 7: 12/03/22 05:00 12/03/22 05:00 Labs: Abnormal Lab Results - Last 24 Hours (Table) 12/02/22 12/02/22 12/02/22 Range/Units 11:19 11:20 17:48 WBC (3.8-10.6) k/uL RBC (4.30-5.90) m/uL Hgb (13.0-17.5) gm/dL Hct (39.0-53.0) % RDW (11.5-15.5) % Neutrophils # (1.3-7.7) k/uL Lymphocytes # (1.0-4.8) k/uL Sodium (137-145) mmol/L Chloride (98-107) mmol/L Carbon Dioxide (22-30) mmol/L BUN (9-20) mg/dL Creatinine (0.66-1.25) mg/dL Glucose (74-99) mg/dL POC Glucose (mg/dL) 206 H 197 H (70-110) mg/dL Calcium (8.4-10.2) mg/dL Urine Glucose (UA) Trace H (Negative) Urine Blood Large H (Negative) Ur Leukocyte Esterase Moderate H (Negative) Urine RBC 103 H (0-5) /hpf Urine WBC 7 H (0-5) /hpf Urine Bacteria Rare H (None) /hpf Urine Mucus Rare H (None) /hpf 12/02/22 12/03/22 12/03/22 Range/Units 20:04 05:00 05:00 WBC 11.3 H (3.8-10.6) k/uL RBC 2.36 L (4.30-5.90) m/uL Hgb 7.2 L (13.0-17.5) gm/dL Hct 21.8 L (39.0-53.0) % RDW 16.9 H (11.5-15.5) % Neutrophils # 10.2 H (1.3-7.7) k/uL Lymphocytes # 0.3 L (1.0-4.8) k/uL Sodium 135 L (137-145) mmol/L Chloride 112 H (98-107) mmol/L Carbon Dioxide 19 L (22-30) mmol/L BUN 99 H (9-20) mg/dL Creatinine 1.75 H (0.66-1.25) mg/dL Glucose 187 H (74-99) mg/dL POC Glucose (mg/dL) 205 H (70-110) mg/dL Calcium 7.8 L (8.4-10.2) mg/dL Urine Glucose (UA) (Negative) Urine Blood (Negative) Ur Leukocyte Esterase (Negative) Urine RBC (0-5) /hpf Urine WBC (0-5) /hpf Urine Bacteria (None) /hpf Urine Mucus (None) /hpf 12/03/22 Range/Units 06:22 WBC (3.8-10.6) k/uL RBC (4.30-5.90) m/uL Hgb (13.0-17.5) gm/dL Hct (39.0-53.0) % RDW (11.5-15.5) % Neutrophils # (1.3-7.7) k/uL Lymphocytes # (1.0-4.8) k/uL Sodium (137-145) mmol/L Chloride (98-107) mmol/L Carbon Dioxide (22-30) mmol/L BUN (9-20) mg/dL Creatinine (0.66-1.25) mg/dL Glucose (74-99) mg/dL POC Glucose (mg/dL) 202 H (70-110) mg/dL Calcium (8.4-10.2) mg/dL Urine Glucose (UA) (Negative) Urine Blood (Negative) Ur Leukocyte Esterase (Negative) Urine RBC (0-5) /hpf Urine WBC (0-5) /hpf Urine Bacteria (None) /hpf Urine Mucus (None) /hpf Assessment and Plan Assessment: Assessment Gastrointestinal bleeding Blood loss anemia secondary to gastrointestinal bleeding Hypotension requiring norepinephrine Acute on chronic renal failure Bilateral lower extremity edema appears to be stable Atrial fibrillation with overall controlled heart rate Plan Continue amiodarone IV at this point since the patient is nothing by mouth Continue holding anticoagulation as well Monitor the kidney function and electrolytes and hemoglobin Continue hemodynamic support with vasopressors Follow-up with the patient
[2022-12-03] MEDS: PANTOPRAZOLE 40 MG/10 ML VIAL IVP SCH ×2 (07:55→21:02)
[2022-12-03] MEDS ORDERED: LEVOTHYROXINE IVP 100 MCG/5 ML VIAL IV SCH (09:00)
--- NOTE | 2022-12-03 09:03 | P.PN ---
Subjective Progress Note Date: 12/03/22 Kalen Birmingham, is an 82 years old male who presented to [facility] emergency room with a chief complaint of shortness of breath. Patient states that his shortness of breath has started several weeks ago but has been worse recently. He was evaluated in the emergency room vital examination on presentation revealed a temperature of 98 pulse 148 respiration 24 blood pressure 119/83 pulse ox 99% on room air Laboratory data revealed a white blood count of 6.9 hemoglobin 11.5 platelet count 199 sodium 128 potassium 5.1 chloride 99 CO2 22 BUN 56 creatinine 0.99 glucose 181 troponin level less than 0.012 Testing in the emergency room revealed chest x-ray done in the emergency room revealed bilateral infiltrates and pleural effusions greater on the right, that represent congestive heart failure versus pneumonia. EKG done in the emergency room revealed evidence of atrial flutter with tachycardia and right bundle branch block. Patient was admitted to medical floor for further evaluation and treatment On 12/01/2022 patient was transferred to the ICU around 2 AM this morning due to hypotension. Patient was started on Levophed. Per nursing staff around 7 AM patient started have evidence of maroon stooling and blood in emesis. Patient has continued to decline requiring increased doses of Levophed. Blood product has been ordered. Critical care, cardiology and surgical services are consulted. On 12/02/2022 patient was seen and examined in the ICU he is alert and oriented 3 in no apparent distress, white blood count has increased slightly since yesterday and Procalcitonin level is elevated at 0.35 consultation for infectious disease was initiated and patient was started on IV cefepime, otherwise no significant change since yesterday, condition remains critical and will follow closely 12/03/2022 patient remains in the intensive care unit. Infectious disease serv ices are following patient is currently on IV antibiotics. Creatinine slightly increased 1.7, bun 99. Nephrology services are following. Patient still requiring high dose of Levophed. Patient has been made a no code. Patient remains on IV amiodarone. Objective - Vital Signs Vital signs: Vital Signs Temp 97.5 F L 12/03/22 04:00 Pulse 117 H 12/03/22 07:00 Resp 24 12/03/22 07:00 BP 119/57 12/03/22 07:00 Pulse Ox 95 12/03/22 07:00 FiO2 Intake & Output 12/02/22 12/03/22 12/03/22 18:59 06:59 18:59 Intake Total 2330.437 2307.294 75 Output Total 605 446 30 Balance 5962.003 0492.294 45 Weight 76.8 kg 83.5 kg Intake: IV 108 3 0.9 NACL 108 3 Intake, IV Titration 2222.437 2304.294 75 Amount ACETAMINOPHEN IV (For NPO 100 ) 1,000 mg In Empty Bag 1 bag @ 400 mls/hr IVPB Q6HR PRN Rx#:[id number] Amiodarone 360 mg In 315.976 Dextrose 5% in Water 200 ml @ 1 MG/MIN 33.333 mls/ hr IV .Q6H [facility] Rx#: [id number] Amiodarone 450 mg In 33.2 221.049 Dextrose 5% in Water 250 ml @ 0.5 MG/MIN 16.667 mls/hr IV .Q15H [facility] Rx#: [id number] Cefepime 2 gm In Sodium 100 100 Chloride 0.9% 100 ml @ 25 mls/hr IVPB Q12HR [facility] Rx #:[id number] Dextrose 5% in Water 100 100 ml @ 618 mls/hr IV .Q10M ONE with Amiodarone 150 mg Rx#:[id number] Norepinephrine 8 mg In 848.261 983.245 Sodium Chloride 0.9% 250 ml @ 0.03 MCG/KG/MIN 4. 394 mls/hr IV .Q24H [facility] Rx#:[id number] Sodium Chloride 0.9% 1, 825 900 75 000 ml @ 75 mls/hr IV . [id number] [facility] Rx#:[id number] Output: Urine 605 445 30 Stool 1 Other: Voiding Method Indwelling Catheter Indwelling Catheter # Bowel Movements 1 ABP, PAP, CO, CI - Last Documented Arterial Blood Pressure 103/68 - Exam Head normocephalic Neck supple Lungs clear to auscultation bilaterally no wheezing or crackles Heart irregular rate Abdomen is soft nontender nondistended positive bowel sounds no hepatosplenomegaly Extremities no edema - Labs CBC & Chem 7: 12/03/22 05:00 12/03/22 05:00 Labs: Abnormal Lab Results - Last 24 Hours (Table) 12/02/22 12/02/22 12/02/22 Range/Units 11:19 11:20 17:48 WBC (3.8-10.6) k/uL RBC (4.30-5.90) m/uL Hgb (13.0-17.5) gm/dL Hct (39.0-53.0) % RDW (11.5-15.5) % Neutrophils # (1.3-7.7) k/uL Lymphocytes # (1.0-4.8) k/uL Sodium (137-145) mmol/L Chloride (98-107) mmol/L Carbon Dioxide (22-30) mmol/L BUN (9-20) mg/dL Creatinine (0.66-1.25) mg/dL Glucose (74-99) mg/dL POC Glucose (mg/dL) 206 H 197 H (70-110) mg/dL Calcium (8.4-10.2) mg/dL Urine Glucose (UA) Trace H (Negative) Urine Blood Large H (Negative) Ur Leukocyte Esterase Moderate H (Negative) Urine RBC 103 H (0-5) /hpf Urine WBC 7 H (0-5) /hpf Urine Bacteria Rare H (None) /hpf Urine Mucus Rare H (None) /hpf 12/02/22 12/03/22 12/03/22 Range/Units 20:04 05:00 05:00 WBC 11.3 H (3.8-10.6) k/uL RBC 2.36 L (4.30-5.90) m/uL Hgb 7.2 L (13.0-17.5) gm/dL Hct 21.8 L (39.0-53.0) % RDW 16.9 H (11.5-15.5) % Neutrophils # 10.2 H (1.3-7.7) k/uL Lymphocytes # 0.3 L (1.0-4.8) k/uL Sodium 135 L (137-145) mmol/L Chloride 112 H (98-107) mmol/L Carbon Dioxide 19 L (22-30) mmol/L BUN 99 H (9-20) mg/dL Creatinine 1.75 H (0.66-1.25) mg/dL Glucose 187 H (74-99) mg/dL POC Glucose (mg/dL) 205 H (70-110) mg/dL Calcium 7.8 L (8.4-10.2) mg/dL Urine Glucose (UA) (Negative) Urine Blood (Negative) Ur Leukocyte Esterase (Negative) Urine RBC (0-5) /hpf Urine WBC (0-5) /hpf Urine Bacteria (None) /hpf Urine Mucus (None) /hpf 12/03/22 Range/Units 06:22 WBC (3.8-10.6) k/uL RBC (4.30-5.90) m/uL Hgb (13.0-17.5) gm/dL Hct (39.0-53.0) % RDW (11.5-15.5) % Neutrophils # (1.3-7.7) k/uL Lymphocytes # (1.0-4.8) k/uL Sodium (137-145) mmol/L Chloride (98-107) mmol/L Carbon Dioxide (22-30) mmol/L BUN (9-20) mg/dL Creatinine (0.66-1.25) mg/dL Glucose (74-99) mg/dL POC Glucose (mg/dL) 202 H (70-110) mg/dL Calcium (8.4-10.2) mg/dL Urine Glucose (UA) (Negative) Urine Blood (Negative) Ur Leukocyte Esterase (Negative) Urine RBC (0-5) /hpf Urine WBC (0-5) /hpf Urine Bacteria (None) /hpf Urine Mucus (None) /hpf Assessment and Plan Plan: Atrial flutter with rapid ventricular response, patient was started on IV heparin and IV Cardizem drip in the emergency room, will order echocardiogram and consult cardiology. Heparin drip was DC'd due to GI bleed. Patient has been started on amiodarone and Cardizem drip DC'd acute GI bleed. Heparin drip DC'd. Surgical service is consulted blood product ordered Leukocytosis with possible pneumonia. Infectious disease services following patient currently on Maxipime Blood loss anemia secondary to GI bleed Hypotension. Patient started on Levophed and transferred to ICU Dehydration with significant elevation in BUN at 56, will continue with very gentle hydration , Hyponatremia sodium 128 Bilateral pulmonary infiltrates and pleural effusion that may represent congestive heart failure versus pneumonia, however no clinical evidence of pneumonia there is no fever no cough and no leukocytosis, will hold off antibiotics at this time, pulmonary consultation was requested. Underlying history of nny-gnsfcur-lbaqoidei diabetes mellitus Underlying history of hypertension Underlying history of hyperlipidemia At this time patient is admitted to telemetry floor Patient has been transferred to the ICU for higher level care Patient remains on Levophed for pressure support 3 units PRBCs ordered Critical care, cardiology, surgical services and nephrology service is consulted Patient remains on amiodarone
[2022-12-03] MEDS: IPRATROPIUM BROMIDE 0.06% NASAL SPRAY (15 ML) EA NOSTRIL SCH (09:21)
[2022-12-03] MEDS: CEFEPIME 2 GM in SODIUM CHLORIDE 0.9% 100 ML IVPB SCH ×2 (09:22→21:02)
--- NOTE | 2022-12-03 10:04 | P.PN ---
Subjective Patient is seen for follow-up for acute kidney injury, prerenal associated with hypovolemia and hypotension and acute anemia. Patient has ongoing GI bleed. He has received 3 units packed RBCs. Currently maintained on saline at 75 mL an hour. Levo fed is at about 0.3 mcg/kg Hemoglobin fairly stable at 7.7 to 7.2 g/dL. Urine output at about 20-40 mL an hour. Serum creatinine increased to 1. 75 today CODE STATUS changed to no code Objective - Vital Signs Vital signs: Vital Signs Temp 99.6 F 12/03/22 08:00 Pulse 102 H 12/03/22 09:15 Resp 20 12/03/22 09:15 BP 113/52 12/03/22 09:15 Pulse Ox 92 L 12/03/22 09:15 FiO2 Intake & Output 12/02/22 12/03/22 12/03/22 18:59 06:59 18:59 Intake Total 2330.437 2307.294 479.116 Output Total 605 446 55 Balance 6185.774 1451.294 424.116 Weight 76.8 kg 83.5 kg Intake: IV 108 3 3 0.9 NACL 108 3 3 Intake, IV Titration 2222.437 2304.294 476.116 Amount ACETAMINOPHEN IV (For NPO 100 100 ) 1,000 mg In Empty Bag 1 bag @ 400 mls/hr IVPB Q6HR PRN Rx#:[id number] Amiodarone 360 mg In 315.976 Dextrose 5% in Water 200 ml @ 1 MG/MIN 33.333 mls/ hr IV .Q6H [facility] Rx#: [id number] Amiodarone 450 mg In 33.2 221.049 Dextrose 5% in Water 250 ml @ 0.5 MG/MIN 16.667 mls/hr IV .Q15H [facility] Rx#: [id number] Cefepime 2 gm In Sodium 100 100 Chloride 0.9% 100 ml @ 25 mls/hr IVPB Q12HR [facility] Rx #:[id number] Dextrose 5% in Water 100 100 ml @ 618 mls/hr IV .Q10M [facility] with Amiodarone 150 mg Rx#:[id number] Norepinephrine 8 mg In 848.261 983.245 226.116 Sodium Chloride 0.9% 250 ml @ 0.03 MCG/KG/MIN 4. 394 mls/hr IV .Q24H [facility] Rx#:[id number] Sodium Chloride 0.9% 1, 825 900 150 000 ml @ 75 mls/hr IV . [id number] [facility] Rx#:[id number] Output: Urine 605 445 55 Stool 1 Other: Voiding Method Indwelling Catheter Indwelling Catheter # Bowel Movements 1 ABP, PAP, CO, CI - Last Documented Arterial Blood Pressure 119/38 - Exam Patient is sleeping but arousable. He has been combative currently with a sitter. Examination of the heart S1 and S2 Examination of the lungs bilateral breath sounds are heard Abdomen is soft nontender Examination lower extremity shows edema 2+ bilaterally [employer] exam shows patient has been moving all 4 extremities. He has been confused. - Labs CBC & Chem 7: 12/03/22 05:00 12/03/22 05:00 Labs: Abnormal Lab Results - Last 24 Hours (Table) 12/02/22 12/02/22 12/02/22 Range/Units 11:19 11:20 17:48 WBC (3.8-10.6) k/uL RBC (4.30-5.90) m/uL Hgb (13.0-17.5) gm/dL Hct (39.0-53.0) % RDW (11.5-15.5) % Neutrophils # (1.3-7.7) k/uL Lymphocytes # (1.0-4.8) k/uL Sodium (137-145) mmol/L Chloride (98-107) mmol/L Carbon Dioxide (22-30) mmol/L BUN (9-20) mg/dL Creatinine (0.66-1.25) mg/dL Glucose (74-99) mg/dL POC Glucose (mg/dL) 206 H 197 H (70-110) mg/dL Calcium (8.4-10.2) mg/dL Urine Glucose (UA) Trace H (Negative) Urine Blood Large H (Negative) Ur Leukocyte Esterase Moderate H (Negative) Urine RBC 103 H (0-5) /hpf Urine WBC 7 H (0-5) /hpf Urine Bacteria Rare H (None) /hpf Urine Mucus Rare H (None) /hpf 12/02/22 12/03/22 12/03/22 Range/Units 20:04 05:00 05:00 WBC 11.3 H (3.8-10.6) k/uL RBC 2.36 L (4.30-5.90) m/uL Hgb 7.2 L (13.0-17.5) gm/dL Hct 21.8 L (39.0-53.0) % RDW 16.9 H (11.5-15.5) % Neutrophils # 10.2 H (1.3-7.7) k/uL Lymphocytes # 0.3 L (1.0-4.8) k/uL Sodium 135 L (137-145) mmol/L Chloride 112 H (98-107) mmol/L Carbon Dioxide 19 L (22-30) mmol/L BUN 99 H (9-20) mg/dL Creatinine 1.75 H (0.66-1.25) mg/dL Glucose 187 H (74-99) mg/dL POC Glucose (mg/dL) 205 H (70-110) mg/dL Calcium 7.8 L (8.4-10.2) mg/dL Urine Glucose (UA) (Negative) Urine Blood (Negative) Ur Leukocyte Esterase (Negative) Urine RBC (0-5) /hpf Urine WBC (0-5) /hpf Urine Bacteria (None) /hpf Urine Mucus (None) /hpf 12/03/22 Range/Units 06:22 WBC (3.8-10.6) k/uL RBC (4.30-5.90) m/uL Hgb (13.0-17.5) gm/dL Hct (39.0-53.0) % RDW (11.5-15.5) % Neutrophils # (1.3-7.7) k/uL Lymphocytes # (1.0-4.8) k/uL Sodium (137-145) mmol/L Chloride (98-107) mmol/L Carbon Dioxide (22-30) mmol/L BUN (9-20) mg/dL Creatinine (0.66-1.25) mg/dL Glucose (74-99) mg/dL POC Glucose (mg/dL) 202 H (70-110) mg/dL Calcium (8.4-10.2) mg/dL Urine Glucose (UA) (Negative) Urine Blood (Negative) Ur Leukocyte Esterase (Negative) Urine RBC (0-5) /hpf Urine WBC (0-5) /hpf Urine Bacteria (None) /hpf Urine Mucus (None) /hpf Assessment and Plan Assessment: 1. Acute kidney injury secondary to hypotension and hypovolemia, urine output is borderline. UA shows large blood RBCs 103 WBC 7 , no protein. 2. Hyponatremia, hypovolemic from severe anemia and GI bleed. Improved with normal saline 3. Acute GI bleed 4. Acute blood loss anemia from GI bleed 5. 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 A. fib with RVR, new onset Plan: Continue IV fluids Follow-up on ultrasound of the kidneys Patient is fairly comfortable from respiratory standpoint. It is mostly right- sided heart failure with preserved ejection fraction. I will continue with the fluids.
--- NOTE | 2022-12-03 10:29 | P.PN ---
Subjective Progress Note Date: 12/03/22 82-year-old male who was admitted in the emergency department, on November 30, for shortness of breath. He apparently came they're presenting with a couple weeks worth of increasing and progressive shortness of breath. His heart rate was rather high, up to 150 bpm. The patient also had a mild nonproductive cough, and some nasal congestion. The patient was admitted to the general medical floor, and sometime last night, became hypotensive, and the merchandise presentation manager wanted him to be transferred down to the intensive care unit, treatment with norepinephrine. I'm seeing him for the first time this morning, in room 267. The patient does have a history of hypertension, diabetes, hyperlipidemia, and hypothyroidism. In addition, the patient developed a gastrointestinal bleed this morning, both with maroon stools, and vomiting up blood. His hemoglobin dropped from 11.5, down to 7.1. When seen this morning, the patient was on 3 L of oxygen, norepinephrine at 30 mcg/m, and amiodarone at 1 mg/m. The patient had blood work ordered as well. I asked for a stat cortisol level and a TSH. Also, we placed an arterial line, and a central line in this patient, for better monitoring and management. White count 6.5, hemoglobin 7.1, hematocrit 21.5, and platelet count was normal. PT 13.6 with an INR 1.3. Sodium 127, potassium 4.6, chlorides 100, CO2 23, BUN 89, and creatinine 1.26. Troponin was 0.115. TSH was normal. Cortisol level was 20. Chest x-ray showed a properly placed central line, and increasing right-sided pleural effusion with consolidation. The patient is seen today 12/02/2022 in follow-up in the intensive care unit. He is currently resting in bed. Awake and alert. He has had some issues with agitation and confusion at times. A food safety field specialist is at the bedside. He is sti ll requiring some norepinephrine at 40 mcg/m. He has normal saline at 75 ML's per hour. He is on amiodarone drip at 0.5 mg/m. He is maintaining O2 saturations in the 90s on 4 L/m per nasal cannula. His most recent hemoglobin was 7.7. He has received 3 units of packed red blood cells so far this admission. Chest x-ray reveals left-sided triple lumen catheter in place. There is moderate to large right pleural effusion and tiny left pleural effusion. He is currently in a +3.8 L balance. White count 13.0. Hemoglobin 7.7. Platelets 168. Sodium 132. Potassium 4.8. Chloride 109. Bicarb 20. BUN 94. Creatinine 1.61. Glucose 168. BMP lung 4250. Cortisol level 20. He is continued on Protonix for GI prophylaxis. He was reported to have one dark tarry stool early this morning. The patient is seen today 12/03/2022 in follow-up in the intensive care unit. He is currently resting in bed. He is mostly moaning. He remains confused. Maintaining O2 saturations in the mid 90s on 6 L high flow nasal cannula now. He slightly tachycardic. Tachypneic. Chest x-ray reveals no acute cardiopulmonary disease with bilateral pleural effusions right greater than left. No significant change. He is status post 3 units of packed red blood cells this admission. Current hemoglobin 7.2. Platelets 192. White count 11.3. Sodium 135. Potassium 5.0. Bicarb 19. BUN 99. Creatinine 1.75. Goes 187. He remains on amiodarone at 0.5 mg/m. Norepinephrine at 0.58 mcg/kg/m. 0.9 normal saline at 75 ML's per hour. He is on antibiotics in the form of cefepime. Currently in a +3.5 L balance. The patient has had just smears of black tarry stool so far today. No hematemesis. Objective - Vital Signs Vital signs: Vital Signs Temp 99.6 F 12/03/22 08:00 Pulse 110 H 12/03/22 10:00 Resp 22 12/03/22 10:00 BP 98/60 12/03/22 10:00 Pulse Ox 95 12/03/22 10:00 FiO2 6 12/03/22 10:00 Intake & Output 12/02/22 12/03/22 12/03/22 18:59 06:59 18:59 Intake Total 2330.437 2307.294 479.116 Output Total 605 446 55 Balance 1351.363 9722.294 424.116 Weight 76.8 kg 83.5 kg Intake: IV 108 3 3 0.9 NACL 108 3 3 Intake, IV Titration 2222.437 2304.294 476.116 Amount ACETAMINOPHEN IV (For NPO 100 100 ) 1,000 mg In Empty Bag 1 bag @ 400 mls/hr IVPB Q6HR PRN Rx#:[id number] Amiodarone 360 mg In 315.976 Dextrose 5% in Water 200 ml @ 1 MG/MIN 33.333 mls/ hr IV .Q6H [facility] Rx#: [id number] Amiodarone 450 mg In 33.2 221.049 Dextrose 5% in Water 250 ml @ 0.5 MG/MIN 16.667 mls/hr IV .Q15H [facility] Rx#: [id number] Cefepime 2 gm In Sodium 100 100 Chloride 0.9% 100 ml @ 25 mls/hr IVPB Q12HR [facility] Rx #:[id number] Dextrose 5% in Water 100 100 ml @ 618 mls/hr IV .Q10M [facility] with Amiodarone 150 mg Rx#:[id number] Norepinephrine 8 mg In 848.261 983.245 226.116 Sodium Chloride 0.9% 250 ml @ 0.03 MCG/KG/MIN 4. 394 mls/hr IV .Q24H [facility] Rx#:[id number] Sodium Chloride 0.9% 1, 825 900 150 000 ml @ 75 mls/hr IV . [id number] [facility] Rx#:[id number] Output: Urine 605 445 55 Stool 1 Other: Voiding Method Indwelling Catheter Indwelling Catheter # Bowel Movements 1 ABP, PAP, CO, CI - Last Documented Arterial Blood Pressure 134/42 - Exam GENERAL EXAM: Arousable, confused 82-year-old male patient on 6 L high flow nasal cannula, comfortable in no apparent distress. HEAD: Normocephalic. EYES: Normal reaction of pupils, equal size. NOSE: Clear with pink turbinates. THROAT: No erythema or exudates. NECK: No masses, no JVD. CHEST: No chest wall deformity. LUNGS: Equal air entry with crackles in the posterior bases right greater than left. CVS: S1 and S2 normal with no audible murmur, irregular rhythm. ABDOMEN: No hepatosplenomegaly, normal bowel sounds, no guarding or rigidity. SPINE: No scoliosis or deformity SKIN: No rashes CENTRAL NERVOUS SYSTEM: No focal deficits, tone is normal in all 4 extremities. EXTREMITIES: There is 1+ peripheral edema. No clubbing, no cyanosis. Peripheral pulses are intact. - Labs CBC & Chem 7: 12/03/22 05:00 12/03/22 05:00 Labs: Abnormal Lab Results - Last 24 Hours (Table) 12/02/22 12/02/22 12/02/22 Range/Units 11:19 11:20 17:48 WBC (3.8-10.6) k/uL RBC (4.30-5.90) m/uL Hgb (13.0-17.5) gm/dL Hct (39.0-53.0) % RDW (11.5-15.5) % Neutrophils # (1.3-7.7) k/uL Lymphocytes # (1.0-4.8) k/uL Sodium (137-145) mmol/L Chloride (98-107) mmol/L Carbon Dioxide (22-30) mmol/L BUN (9-20) mg/dL Creatinine (0.66-1.25) mg/dL Glucose (74-99) mg/dL POC Glucose (mg/dL) 206 H 197 H (70-110) mg/dL Calcium (8.4-10.2) mg/dL Urine Glucose (UA) Trace H (Negative) Urine Blood Large H (Negative) Ur Leukocyte Esterase Moderate H (Negative) Urine RBC 103 H (0-5) /hpf Urine WBC 7 H (0-5) /hpf Urine Bacteria Rare H (None) /hpf Urine Mucus Rare H (None) /hpf 12/02/22 12/03/22 12/03/22 Range/Units 20:04 05:00 05:00 WBC 11.3 H (3.8-10.6) k/uL RBC 2.36 L (4.30-5.90) m/uL Hgb 7.2 L (13.0-17.5) gm/dL Hct 21.8 L (39.0-53.0) % RDW 16.9 H (11.5-15.5) % Neutrophils # 10.2 H (1.3-7.7) k/uL Lymphocytes # 0.3 L (1.0-4.8) k/uL Sodium 135 L (137-145) mmol/L Chloride 112 H (98-107) mmol/L Carbon Dioxide 19 L (22-30) mmol/L BUN 99 H (9-20) mg/dL Creatinine 1.75 H (0.66-1.25) mg/dL Glucose 187 H (74-99) mg/dL POC Glucose (mg/dL) 205 H (70-110) mg/dL Calcium 7.8 L (8.4-10.2) mg/dL Urine Glucose (UA) (Negative) Urine Blood (Negative) Ur Leukocyte Esterase (Negative) Urine RBC (0-5) /hpf Urine WBC (0-5) /hpf Urine Bacteria (None) /hpf Urine Mucus (None) /hpf 12/03/22 Range/Units 06:22 WBC (3.8-10.6) k/uL RBC (4.30-5.90) m/uL Hgb (13.0-17.5) gm/dL Hct (39.0-53.0) % RDW (11.5-15.5) % Neutrophils # (1.3-7.7) k/uL Lymphocytes # (1.0-4.8) k/uL Sodium (137-145) mmol/L Chloride (98-107) mmol/L Carbon Dioxide (22-30) mmol/L BUN (9-20) mg/dL Creatinine (0.66-1.25) mg/dL Glucose (74-99) mg/dL POC Glucose (mg/dL) 202 H (70-110) mg/dL Calcium (8.4-10.2) mg/dL Urine Glucose (UA) (Negative) Urine Blood (Negative) Ur Leukocyte Esterase (Negative) Urine RBC (0-5) /hpf Urine WBC (0-5) /hpf Urine Bacteria (None) /hpf Urine Mucus (None) /hpf Assessment and Plan Assessment: Acute anemia secondary to acute gastrointestinal bleed, with a 4 g drop in hemoglobin. Status post 3 units of packed red blood cells. Current hemoglobin 7.2 Right-sided pleural effusion/consolidation. Echocardiogram reveals preserved left ventricular systolic function Acute hypoxemic respiratory failure secondary to an acute exacerbation of chronic diastolic congestive heart failure Atrial fibrillation with RVR. On amiodarone drip Hypotension secondary to anemia, requiring fluids and norepinephrine. Acute renal failure secondary to hypotension and hypovolemia Hyponatremia, hypovolemia secondary to anemia History of hypertension. History of diabetes mellitus. History of hyperlipidemia. History of hypothyroidism. Prior history of pericardial effusion. Prior history of tobacco use. Plan: Chest x-ray, medications and labs reviewed Continue with the current treatment plan Titrate down the norepinephrine as tolerated Titrate the FiO2 as tolerated Continue fluid resuscitation May require diuretics once blood pressure has stabilized Continue to hold anticoagulation Prognosis is guarded DO NOT RESUSCITATE/DO NOT INTUBATE CODE STATUS We will continue to follow I have personally seen and examined the patient, performed the documentation and the assessment and plan as written. Number of minutes spent on the visit: 10.
[2022-12-03] MEDS ORDERED: AMIODARONE 450 MG in DEXTROSE 5% IN WATER 250 ML IV SCH ×2 (11:00)
--- NOTE | 2022-12-03 11:11 | US ---
EXAMINATION TYPE: US kidneys/renal and bladder DATE OF EXAM: 12/03/2022 COMPARISON: NONE CLINICAL HISTORY: TIP. TIP Exam limitations due to bowel gas patient unable to roll. EXAM MEASUREMENTS: Right Kidney: 8.2 x 4.5 x 3.5 cm Left Kidney: 7.5 x 4.6 x 3.2 cm Right Kidney: Obscured by overlying bowel gas Left Kidney: Obscured by overlying bowel gas Bladder: Obscured by bowel gas has a catheter in. Bilateral Jets seen: No There is no evidence for hydronephrosis at this point in time. No nephrolithiasis is seen. No ana m s are identified. The urinary bladder is anechoic. Extremely limited study due to bowel gas. IMPRESSION: Extremely limited due to bowel gas. No hydronephrosis bilaterally. Limited evaluation for renal calci fications and renal masses.
[2022-12-03] MEDS: HYDROCORTISONE SUCCINATE 100 MG/2 ML VIAL IV SCH ×2 (11:18→18:04)
[2022-12-03 11:50] LABS: Glucose,Whole Blood 211 mg/dL (70-110)
[2022-12-03] MEDS ORDERED: ACETAMINOPHEN IV (For NPO) 1,000 MG in EMPTY BAG 1 BAG IVPB PRN (13:20)
[2022-12-03] MEDS ORDERED: SODIUM CHLORIDE 0.9% 500 ML 500 ML IV ONE (14:09)
--- NOTE | 2022-12-03 14:37 | P.PN ---
Subjective Progress Note Date: 12/03/22 CHIEF COMPLAINT: GI bleed with anemia HISTORY OF PRESENT ILLNESS: The patient is a 82-year-old male with atrial fibrillation, rapid ventricular response and IV heparin. Hemoglobin was down from 11.5-7.1 in 24 hours from admission. Hemoglobin down to 8.3-7.7. Patient's clinical course continues to decline. He is now DO NOT RESUSCITATE code. He had small smears of tarry black stools. No hematemesis. He is on leave of to maintain his blood pressure due to hypotension ROS: No reports of nausea and vomiting. He has atrial fibrillation. Transfusion 3 units packed RBCs on 12/01/2022 PHYSICAL EXAM: VITAL SIGNS: Reviewed CONSTITUTIONAL: Well developed and in no acute distress. EYES: Conjuctivae without sclera icterus. Extraocular movements grossly intact. HEAD, EARS, NOSE, THROAT: Moist buccal mucosa. Head is atraumatic, normocephalic. Hears conversational speech. No nasal drainage. RESPIRATORY: Non-labored respirations and equal bilateral excursions. CARDIOVASCULAR: Palpable 2+ radial pulses. ABDOMEN: No peritonitis. MUSCULOSKELETAL: No gross deformity of the lower extremities noted. No clubbing. No cyanosis. SKIN: Good skin turgor. Well perfused. NEUROLOGIC: Cranial nerves II through XII grossly intact. No focal or lateralizing signs. PSYCH: Alert to self. CLINICAL LABS: Reviewed. Hemoglobin down 11.5-7.1, from admission. Hemoglobin down to 8.3-7.7, now 7.2 with anemia ASSESSMENT: 1. Acute blood loss anemia 2. Gastrointestinal bleed 3. Atrial fibrillation rapid ventricular response 4. Adverse event from anticoagulant, heparin 5. Hypotension PLAN: 1. Patient overall clinical course continues to decline. Currently, patient is DO NOT RESUSCITATE CODE STATUS. 2. Overall, patient poor surgical candidate with high risk for morbidity mortality. Objective - Vital Signs Vital signs: Vital Signs Temp 95.1 F L 12/03/22 13:00 Pulse 118 H 12/03/22 14:00 Resp 20 12/03/22 13:00 BP 124/57 12/03/22 14:00 Pulse Ox 94 L 12/03/22 14:00 FiO2 4 12/03/22 14:00 Intake & Output 12/02/22 12/03/22 12/03/22 18:59 06:59 18:59 Intake Total 2330.437 2307.294 1931.527 Output Total 605 446 165 Balance 5799.143 7932.294 1766.527 Weight 76.8 kg 83.5 kg Intake: IV 108 3 21 0.9 NACL 108 3 21 Intake, IV Titration 2222.437 2304.294 1910.527 Amount ACETAMINOPHEN IV (For NPO 100 100 ) 1,000 mg In Empty Bag 1 bag @ 400 mls/hr IVPB Q6HR PRN Rx#:[id number] Amiodarone 360 mg In 315.976 Dextrose 5% in Water 200 ml @ 1 MG/MIN 33.333 mls/ hr IV .Q6H [facility] Rx#: [id number] Amiodarone 450 mg In 33.2 221.049 Dextrose 5% in Water 250 ml @ 0.5 MG/MIN 16.667 mls/hr IV .Q15H [facility] Rx#: [id number] Cefepime 2 gm In Sodium 100 100 100 Chloride 0.9% 100 ml @ 25 mls/hr IVPB Q12HR [facility] Rx #:[id number] Dextrose 5% in Water 100 100 ml @ 618 mls/hr IV .Q10M [facility] with Amiodarone 150 mg Rx#:[id number] Norepinephrine 8 mg In 848.261 983.245 610.527 Sodium Chloride 0.9% 250 ml @ 0.03 MCG/KG/MIN 4. 394 mls/hr IV .Q24H [facility] Rx#:[id number] Sodium Chloride 0.9% 1, 825 900 600 000 ml @ 75 mls/hr IV . [id number] [facility] Rx#:[id number] Sodium Chloride 0.9% 500 500 ml 500 ml @ 999 mls/hr IV .Q31M [facility] Rx#:[id number] Output: Urine 605 445 165 Stool 1 Other: Voiding Method Indwelling Catheter Indwelling Catheter Indwelling Catheter # Bowel Movements 1 ABP, PAP, CO, CI - Last Documented Arterial Blood Pressure 108/33 - Labs CBC & Chem 7: 12/03/22 05:00 12/03/22 05:00 Labs: Abnormal Lab Results - Last 24 Hours (Table) 12/02/22 12/02/22 12/03/22 Range/Units 17:48 20:04 05:00 WBC 11.3 H (3.8-10.6) k/uL RBC 2.36 L (4.30-5.90) m/uL Hgb 7.2 L (13.0-17.5) gm/dL Hct 21.8 L (39.0-53.0) % RDW 16.9 H (11.5-15.5) % Neutrophils # 10.2 H (1.3-7.7) k/uL Lymphocytes # 0.3 L (1.0-4.8) k/uL Sodium (137-145) mmol/L Chloride (98-107) mmol/L Carbon Dioxide (22-30) mmol/L BUN (9-20) mg/dL Creatinine (0.66-1.25) mg/dL Glucose (74-99) mg/dL POC Glucose (mg/dL) 197 H 205 H (70-110) mg/dL Calcium (8.4-10.2) mg/dL 12/03/22 12/03/22 12/03/22 Range/Units 05:00 06:22 11:48 WBC (3.8-10.6) k/uL RBC (4.30-5.90) m/uL Hgb (13.0-17.5) gm/dL Hct (39.0-53.0) % RDW (11.5-15.5) % Neutrophils # (1.3-7.7) k/uL Lymphocytes # (1.0-4.8) k/uL Sodium 135 L (137-145) mmol/L Chloride 112 H (98-107) mmol/L Carbon Dioxide 19 L (22-30) mmol/L BUN 99 H (9-20) mg/dL Creatinine 1.75 H (0.66-1.25) mg/dL Glucose 187 H (74-99) mg/dL POC Glucose (mg/dL) 202 H 211 H (70-110) mg/dL Calcium 7.8 L (8.4-10.2) mg/dL
--- NOTE | 2022-12-03 17:02 | P.PN ---
Subjective Progress Note Date: 12/03/22 Principal diagnosis: Leukocytosis Patient is 82 year old male with a past medical history significant for hypertension hyperlipidemia hypothyroidism diabetes mellitus did have a history of pericarditis and pericardial effusion who 2 years ago patient presented to the ER 2 days ago on 11/30/2022 for evaluation of increasing shortness of breath, patient subsequently noticed having worsening of his respiratory status also worsening white count and mildly elevated procalcitonin urine was mildly positive. On today's evaluation that is 12/03/2022, the patient is afebrile the patient seemed to be slightly comfortable on the at the bedside no history could be obtained from the patient, no vomiting or diarrhea has been reported by the nursing staff Objective - Vital Signs Vital signs: Vital Signs Temp 97.5 F L 12/03/22 14:00 Pulse 124 H 12/03/22 15:00 Resp 22 12/03/22 14:45 BP 122/65 12/03/22 15:00 Pulse Ox 93 L 12/03/22 15:00 FiO2 4 12/03/22 14:00 Intake & Output 12/02/22 12/03/22 12/03/22 18:59 06:59 18:59 Intake Total 2330.437 2307.294 2106.595 Output Total 605 446 175 Balance 7651.094 4891.294 1931.595 Weight 76.8 kg 83.5 kg Intake: IV 108 3 24 0.9 NACL 108 3 24 Intake, IV Titration 2222.437 2304.294 2082.595 Amount ACETAMINOPHEN IV (For NPO 100 100 ) 1,000 mg In Empty Bag 1 bag @ 400 mls/hr IVPB Q6HR PRN Rx#:[id number] Amiodarone 360 mg In 315.976 Dextrose 5% in Water 200 ml @ 1 MG/MIN 33.333 mls/ hr IV .Q6H [facility] Rx#: [id number] Amiodarone 450 mg In 33.2 221.049 Dextrose 5% in Water 250 ml @ 0.5 MG/MIN 16.667 mls/hr IV .Q15H [facility] Rx#: [id number] Cefepime 2 gm In Sodium 100 100 100 Chloride 0.9% 100 ml @ 25 mls/hr IVPB Q12HR [facility] Rx #:[id number] Dextrose 5% in Water 100 100 ml @ 618 mls/hr IV .Q10M [facility] with Amiodarone 150 mg Rx#:[id number] Norepinephrine 8 mg In 848.261 983.245 707.595 Sodium Chloride 0.9% 250 ml @ 0.03 MCG/KG/MIN 4. 394 mls/hr IV .Q24H [facility] Rx#:[id number] Sodium Chloride 0.9% 1, 825 900 675 000 ml @ 75 mls/hr IV . [id number] [facility] Rx#:[id number] Sodium Chloride 0.9% 500 500 ml 500 ml @ 999 mls/hr IV .Q31M [facility] Rx#:[id number] Output: Urine 605 445 175 Stool 1 Other: Voiding Method Indwelling Catheter Indwelling Catheter Indwelling Catheter # Bowel Movements 1 ABP, PAP, CO, CI - Last Documented Arterial Blood Pressure 131/42 - Exam GENERAL DESCRIPTION: An elderly male lying in bed in no distress RESPIRATORY SYSTEM: Unlabored breathing , decreased breath sounds at bases HEART: S1 S2 regular rate and rhythm , ABDOMEN: Soft , no tenderness EXTREMITIES: No edema feet - Labs CBC & Chem 7: 12/03/22 05:00 12/03/22 05:00 Labs: Abnormal Lab Results - Last 24 Hours (Table) 12/02/22 12/02/22 12/03/22 Range/Units 17:48 20:04 05:00 WBC 11.3 H (3.8-10.6) k/uL RBC 2.36 L (4.30-5.90) m/uL Hgb 7.2 L (13.0-17.5) gm/dL Hct 21.8 L (39.0-53.0) % RDW 16.9 H (11.5-15.5) % Neutrophils # 10.2 H (1.3-7.7) k/uL Lymphocytes # 0.3 L (1.0-4.8) k/uL Sodium (137-145) mmol/L Chloride (98-107) mmol/L Carbon Dioxide (22-30) mmol/L BUN (9-20) mg/dL Creatinine (0.66-1.25) mg/dL Glucose (74-99) mg/dL POC Glucose (mg/dL) 197 H 205 H (70-110) mg/dL Calcium (8.4-10.2) mg/dL 01/22/23 01/22/23 01/22/23 Range/Units 05:00 06:22 11:48 WBC (3.8-10.6) k/uL RBC (4.30-5.90) m/uL Hgb (13.0-17.5) gm/dL Hct (39.0-53.0) % RDW (11.5-15.5) % Neutrophils # (1.3-7.7) k/uL Lymphocytes # (1.0-4.8) k/uL Sodium 135 L (137-145) mmol/L Chloride 112 H (98-107) mmol/L Carbon Dioxide 19 L (22-30) mmol/L BUN 99 H (9-20) mg/dL Creatinine 1.75 H (0.66-1.25) mg/dL Glucose 187 H (74-99) mg/dL POC Glucose (mg/dL) 202 H 211 H (70-110) mg/dL Calcium 7.8 L (8.4-10.2) mg/dL Assessment and Plan (1) Leukocytosis Current Visit: Yes Status: Acute Code(s): D72.829 - ELEVATED WHITE BLOOD CELL COUNT, UNSPECIFIED SNOMED Code(s): 250737512 Plan: 1patient with limited white count which is likely multifactorial in this patient presented to hospital predominantly with increasing shortness of breath patient also have some congested cough but no sputum production questionably r eactive to underlying CHF , underlying pneumonia less likely but not entirely excluded patient also have mildly positive UA could be contributing to his elevated white count is abdominal was soft on clinical examination and no evidence of any cellulitis or joint swelling 2patient with penicillin ALLERGY that would limit the number of antibiotic safety use 3-patient white count is trending down and the patient continue with cefepime 2 g every 12hr while waiting for the cultures to finalize Time with Patient: Less than 30
[2022-12-03 17:46] LABS: Glucose,Whole Blood 179 mg/dL (70-110)
[2022-12-03] MEDS ORDERED: FUROSEMIDE 10 MG/ML 10 ML VIAL IV STA (18:01)
[2022-12-03 20:44] LABS: Glucose,Whole Blood 194 mg/dL (70-110)
[2022-12-04] MEDS: HYDROCORTISONE SUCCINATE 100 MG/2 ML VIAL IV SCH (00:38)
[2022-12-04] MEDS: NOREPINEPHRINE 8 MG in SODIUM CHLORIDE 0.9% 250 ML IV SCH ×2 (00:42→04:16)
[2022-12-04 04:13] VITALS: TEMP 96.3
[2022-12-04 05:24] LABS: Albumin 2.5 g/dL (3.5-5.0); Calcium 7.8 mg/dL (8.4-10.2); Potassium 5.8 mmol/L (3.5-5.1); Total Bilirubin 0.7 mg/dL (0.2-1.3); Total Protein 4.9 g/dL (6.3-8.2)
[2022-12-04] MEDS ORDERED: AMIODARONE 450 MG in DEXTROSE 5% IN WATER 250 ML IV SCH ×2 (05:30)
[2022-12-04 05:32] LABS: Anisocytosis Slight; Basophils % (A) 0 %; Eosinophils % (A) 0 %; HCT 22.2 % (39.0-53.0); Hypochromasia Moderate; Lymphocytes # (A) 0.2 k/uL (1.0-4.8); Lymphocytes % (A) 1 %; MCH 29.5 pg (25.0-35.0); MCHC 30.6 g/dL (31.0-37.0); MCV 96.5 fL (80.0-100.0); Macrocytosis Slight; Monocytes # (A) 0.4 k/uL (0-1.0); Monocytes % (A) 4 %; Neutrophils # (A) 10.7 k/uL (1.3-7.7); Neutrophils % (A) 94 %; Platelet Count 194 k/uL (150-450); Poikilocytosis Slight; WBC 11.4 k/uL (3.8-10.6)
[2022-12-04 05:35] LABS: HGB 6.8 gm/dL (13.0-17.5)
[2022-12-04 05:45] LABS: Glucose,Whole Blood 212 mg/dL (70-110)
[2022-12-04] MEDS ORDERED: FUROSEMIDE 10 MG/ML 10 ML VIAL IV STA (05:52)
[2022-12-04] MEDS ORDERED: INSULIN REGULAR 100 UNIT/ML VIAL (IV) IV ONE (05:52)
[2022-12-04] MEDS ORDERED: SODIUM BICARB 8.4% 50 ML SYR (1 MEQ/ML) IV STA (05:55)
[2022-12-04 06:02] VITALS: BP 112/55; PULSE 96; RESP 59
--- NOTE | 2022-12-04 06:55 | XR ---
EXAMINATION TYPE: XR chest 1V portable DATE OF EXAM: 12/04/2022 CLINICAL HISTORY: Difficulty breathing progress study. TECHNIQUE: Single AP portable semiupright view of the chest is obtained. COMPARISON: Chest x-ray from one day earlier and older studies. FINDINGS: Stable left-sided subclavian central venous catheter. Patient rotated to the right more on current study. Now completely opacified right hemithorax. Diffuse left lung opacity redemonstrated. Silhouetting of both right and left heart borders noted on current study. Underlying cardiomegaly suspected. No defin itive new mediastinal shift. Multilevel spurring in the thoracic spine is redemonstrated. IMPRESSION: Worsening right lung opacification. Suspect large right pleural effusion and associated r ight lung compressive atelectasis. Diffuse left lung edema and/or infiltrates with small left pleural effusion redemonstrated.
[2022-12-04] MEDS ORDERED: CEFEPIME 1 GM in SODIUM CHLORIDE 0.9% 50 ML IVPB SCH (09:00)
[2022-12-04 10:01] VITALS: BMI 25.7
--- NOTE | 2022-12-06 11:51 | P.DS ---
Providers Date of admission: 11/30/22 14:03 Expected date of discharge: 12/04/22 Attending physician: Joseluis Clay Consults: 11/30/22 14:01 Consult Physician Routine Consulting Provider: Param Sanchez Consult Reason/Comments: a flutter w rvr, chf Do you want consulting provider notified?: Yes 11/30/22 17:03 Consult Physician Routine Consulting Provider: Yazmin Aguilar Consult Reason/Comments: pleural effusion Do you want consulting provider notified?: Yes 12/01/22 08:08 Consult Physician Stat Consulting Provider: Kurt Whatley Consult Reason/Comments: Acute GIB Do you want consulting provider notified?: Yes 12/01/22 09:56 Consult Physician Routine Consulting Provider: Marta Sanchez Consult Reason/Comments: Hyponatremia acute kidney injury Do you want consulting provider notified?: Yes 12/02/22 12:21 Consult Physician Routine Consulting Provider: Crystal Meraz Consult Reason/Comments: leukocytosis Do you want consulting provider notified?: Yes 12/03/22 08:49 Consult Physician Routine Consulting Provider: Marta Sanchez Consult Reason/Comments: TIP Do you want consulting provider notified?: Yes Primary care physician: Rebecca Zaragoza Hospital Course: Discharge diagnosis Atrial flutter with rapid ventricular response, patient was started on IV heparin and IV Cardizem drip in the emergency room, will order echocardiogram and consult cardiology. Heparin drip was DC'd due to GI bleed. Patient has been started on amiodarone and Cardizem drip DC'd acute GI bleed. Heparin drip DC'd. Surgical service is consulted blood product ordered Leukocytosis with possible pneumonia. Infectious disease services following patient currently on Maxipime Blood loss anemia secondary to GI bleed Hypotension. Patient started on Levophed and transferred to ICU Dehydration with significant elevation in BUN at 56, will continue with very gentle hydration , Hyponatremia sodium 128 Bilateral pulmonary infiltrates and pleural effusion that may represent congestive heart failure versus pneumonia, however no clinical evidence of pneumonia there is no fever no cough and no leukocytosis, will hold off antibiotics at this time, pulmonary consultation was requested. Underlying history of [id number] diabetes mellitus Underlying history of hypertension Underlying history of hyperlipidemia Hospital course Kalen [place], is an 82 years old male who presented to [facility] emergency room with a chief complaint of shortness of breath. Patient states that his shortness of breath has started several weeks ago but has been worse recently. He was evaluated in the emergency room vital examination on presentation revealed a temperature of 98 pulse 148 respiration 24 blood pressure 119/83 pulse ox 99% on room air Laboratory data revealed a white blood count of 6.9 hemoglobin 11.5 platelet count 199 sodium 128 potassium 5.1 chloride 99 CO2 22 BUN 56 creatinine 0.99 glucose 181 troponin level less than 0.012 Testing in the emergency room revealed chest x-ray done in the emergency room revealed bilateral infiltrates and pleural effusions greater on the right, that represent congestive heart failure versus pneumonia. EKG done in the emergency room revealed evidence of atrial flutter with tachycardia and right bundle branch block. Patient was admitted to medical floor for further evaluation and treatment On 12/01/2022 patient was transferred to the ICU around 2 AM this morning due to hypotension. Patient was started on Levophed. Per nursing staff around 7 AM patient started have evidence of maroon stooling and blood in emesis. Patient has continued to decline requiring increased doses of Levophed. Blood product has been ordered. Critical care, cardiology and surgical services are consulted. On 12/02/2022 patient was seen and examined in the ICU he is alert and oriented 3 in no apparent distress, white blood count has increased slightly since yesterday and Procalcitonin level is elevated at 0.35 consultation for infectious disease was initiated and patient was started on IV cefepime, otherwise no significant change since yesterday, condition remains critical and will follow closely 12/03/2022 patient remains in the intensive care unit. Infectious disease services are following patient is currently on IV antibiotics. Creatinine slightly increased 1.7, bun 99. Nephrology services are following. Patient still requiring high dose of Levophed. Patient has been made a no code. Patient remains on IV amiodarone. According to records patient on 12/04/2022 at [id number]. Patient was a no code Plan - Discharge Summary Discharge Rx Participant: No New Discharge Prescriptions: No Action metFORMIN HCL [Glucophage] 500 mg PO W/SUPPER Metoprolol Tartrate [Lopressor] 25 mg PO BID-W/MEALS Pioglitazone [Actos] 45 mg PO W/SUPPER lisinopriL [Zestril] 20 mg PO DAILY Pravastatin Sodium [Pravachol] 20 mg PO W/SUPPER Levothyroxine Sodium [Synthroid] 50 mcg PO AC-BRKFS Repaglinide [Prandin] 0.5 mg PO W/SUPPER Ipratropium [place] [Ipratropium [place] 0.03%] 1 spr EA NOSTRIL DAILY Discharge Medication List Pravastatin Sodium [Pravachol] 20 mg PO W/SUPPER 01/30/21 [History] metFORMIN HCL [Glucophage] 500 mg PO W/SUPPER 01/30/21 [History] Ipratropium [place] [Ipratropium [place] 0.03%] 1 spr EA NOSTRIL DAILY 11/30/22 [History] Levothyroxine Sodium [Synthroid] 50 mcg PO [id number]-BRKFST 11/30/22 [History] Metoprolol Tartrate [Lopressor] 25 mg PO BID-W/MEALS 11/30/22 [History] Pioglitazone [Actos] 45 mg PO W/SUPPER 11/30/22 [History] Repaglinide [Prandin] 0.5 mg PO W/SUPPER 11/30/22 [History] lisinopriL [Zestril] 20 mg PO DAILY 11/30/22 [History] Follow up Appointment(s)/Referral(s): Rebecca Zaragoza MD [Primary Care Provider] - 1-2 days Discharge Disposition: - Preliminary Cause of Preliminary Cause of : Shock secondary to acute GI bleed
== END 2022-12-04 10:04 | disposition expired | DRG 291 ==
LOC: EC 10:09 → 3SCARD 14:03 → 2SICU 12-01 02:04
PROVIDERS: ADMIT Internal Medicine; ATTEND Internal Medicine
PROC: 3E043XZ Introduction of Vasopressor into Central Vein, Percutaneous Approach (ICD-10-PCS; principal; 2022-12-01)
PROC: 30233N1 Transfusion of Nonautologous Red Blood Cells into Peripheral Vein, Percutaneous Approach (ICD-10-PCS; 2022-12-01)
PROC: 4A133B1 Monitoring of Arterial Pressure, Peripheral, Percutaneous Approach (ICD-10-PCS; 2022-12-01)
PROC: 03HY32Z Insertion of Monitoring Device into Upper Artery, Percutaneous Approach (ICD-10-PCS; 2022-12-01)
PROC: 4A133J1 Monitoring of Arterial Pulse, Peripheral, Percutaneous Approach (ICD-10-PCS; 2022-12-01)
PROC: 4A133B1 Monitoring of Arterial Pressure, Peripheral, Percutaneous Approach (ICD-10-PCS; 2022-12-01)
PROC: 03HY32Z Insertion of Monitoring Device into Upper Artery, Percutaneous Approach (ICD-10-PCS; 2022-12-01)
PROC: 4A133J1 Monitoring of Arterial Pulse, Peripheral, Percutaneous Approach (ICD-10-PCS; 2022-12-01)
PROC: 02HV33Z Insertion of Infusion Device into Superior Vena Cava, Percutaneous Approach (ICD-10-PCS; 2022-12-01)
DX: I13.0 Hypertensive heart and chronic kidney disease with heart failure and stage 1 through stage 4 chronic kidney disease, or unspecified chronic kidney disease (principal); I50.33 Acute on chronic diastolic (congestive) heart failure; J96.01 Acute respiratory failure with hypoxia; J18.9 Pneumonia, unspecified organism; D62 Acute posthemorrhagic anemia; R57.9 Shock, unspecified; E87.1 Hypo-osmolality and hyponatremia; I47.1 Supraventricular tachycardia; I48.92 Unspecified atrial flutter; J44.0 Chronic obstructive pulmonary disease with (acute) lower respiratory infection; K92.0 Hematemesis; K92.1 Melena; N17.9 Acute kidney failure, unspecified; N18.9 Chronic kidney disease, unspecified; E11.22 Type 2 diabetes mellitus with diabetic chronic kidney disease; T45.515A Adverse effect of anticoagulants, initial encounter; D72.829 Elevated white blood cell count, unspecified; Z79.84 Long term (current) use of oral hypoglycemic drugs; E03.9 Hypothyroidism, unspecified; E78.5 Hyperlipidemia, unspecified; E86.0 Dehydration; E86.1 Hypovolemia; Z66 Do not resuscitate; I25.10 Atherosclerotic heart disease of native coronary artery without angina pectoris; I45.10 Unspecified right bundle-branch block; I48.91 Unspecified atrial fibrillation; Z79.890 Hormone replacement therapy; Z79.899 Other long term (current) drug therapy; R45.1 Restlessness and agitation; R77.8 Other specified abnormalities of plasma proteins; Z20.822 Contact with and (suspected) exposure to COVID-19; Z71.3 Dietary counseling and surveillance
CPT/HCPCS: 36415; 71045; 71046; 76770; 80048; 80053; 81001; 82533; 83735; 83880; 84145; 84439; 84443; 84481; 84484; 85025; 85027; 85610; 85730; 86850; 86900; 86901; 86920; 87040; 87636; 93005; 93306; 96365; 96366; 96368; 96375; 99291